=== PATIENT | male | born 1960 | race Caucasian/White ===

== ENCOUNTER 2016-11-03 20:01 | Inpatient (IN) | payer BC, OTHER ==
[~2016-11-03] VITALS: Ht 188 cm; Wt 95.3 kg
[2016-11-03] MEDS ORDERED: SODIUM CHLORIDE 0.9% 1000ML 500 ML IV STA (20:40)
[2016-11-03] MEDS ORDERED: SODIUM CHLORIDE 0.9% 1000ML 1,000 ML IV STA (20:40)
[2016-11-03] MEDS ORDERED: ONDANSETRON INJ 2 MG/ML 2 ML VIAL IV STA (20:40)
[2016-11-03] MEDS ORDERED: PEDICHW50 PO (20:42)
[2016-11-03] MEDS ORDERED: OPTIRAY 320 IV PRN (20:45)
--- NOTE | 2016-11-03 20:45 | EMERGENCY ROOM VISIT NOTE ---
History Report prepared by Alondra: Almas Golden Under the Supervision of: Dr. Star Martin M.D. First contact with patient: 20:32 Chief Complaint: ABDOMINAL PAIN Stated Complaint: SEVERE ABD PAIN-LUMP ON R SIDE History of Present Illness The patient is a 56 year old male who presents to the Emergency Room with complaints of upper abdominal pain that began a couple hours ago. He rates his pain a 9/10 in severity. Today, he was golfing without complaints. Earlier this evening, the patient then had a significant bowel movement. A few minutes later , he felt like he was going to have another one. He could not have another bowel movement. However, he began to experience a knot in his right abdomen with pain over the upper quadrants. He then became nauseated. He did not vomit. He denies any fevers. He has a past medical history of a gastric bypass surgery 1 year ago. Source of History: patient Onset: this evening Position: abdomen Symptom Intensity: 9/10 Quality: sharp Timing: constant Associated Symptoms: + nausea, No fevers Review of Systems See HPI for pertinent positives & negatives. A total of 10 systems reviewed and were otherwise negative. Past Medical & Surgical Medical Problems: (1) GERD (gastroesophageal reflux disease) (2) HTN (hypertension) Surgical Problems: (1) Hx of gastric bypass Family History Patient reports no known family medical history. Social History Smoking Status: Never Smoker Smokeless Tobacco Use: No Alcohol Use: none Drug Use: none Marital Status: Housing Status: lives with significant other Occupation Status: employed Current/Historical Medications Scheduled Pediatric Multiple Vitamin W/ (Flintstones Chewable), 1 TAB PO BID Allergies Coded Allergies: Amoxicillin (Verified Allergy, Unknown, RASH, 11/03/16) Physical Exam Vital Signs Date Time Temp Pulse Resp B/P Pulse Ox O2 Delivery O2 Flow Rate FiO2 11/03/16 22:47 62 12 141/81 Room Air 11/03/16 20:06 36.3 59 20 133/76 100 Room Air Physical Exam GENERAL: Patient is in no acute distress. HEENT: No acute trauma, normocephalic atraumatic, mucous membranes moist, no nasal congestion, no scleral icterus. NECK: No stridor, no adenopathy, no meningismus, trachea is midline. LUNGS: Clear to auscultation bilaterally, no wheeze, no rhonchi, breath sounds equal. HEART: Without murmurs gallops or rubs, regular rate and rhythm. ABDOMEN: There is a firm mass in the RUQ, possibly consistent with an enlarged liver. This area is tender. There is fullness to the groin, especially on the left, consistent with what he describes as a varicocele/hydrocele. EXTREMITIES: No cyanosis, mild bilateral pedal edema with chronic skin changes, full range of motion of all the joints without pain or difficulty, no signs for acute trauma. NEUROLOGIC: Oriented x 3, no acute motor or sensory deficits, no focal weakness. SKIN: No rash, no jaundice, no diaphoresis. Medical Decision & Procedures ER Provider Diagnostic Interpretation: Radiology results are stated below per my review and radiologist interpretation: CHEST ONE VIEW PORTABLE CLINICAL HISTORY: Abdominal pain. COMPARISON STUDY: No previous studies for comparison. FINDINGS: Lung lungs are normal. Lungs are clear. There is no pneumothorax or pleural effusion. Cardiac size is normal. Mediastinal contours are normal. There is no evidence of pulmonary edema. IMPRESSION: No acute cardiopulmonary findings. Electronically signed by: Blade Osborne M.D. 11/03/2016 9:32 PM Dictated Date/Time: 11/03/2016 9:[address] OF THE ABDOMEN AND PELVIS WITH CONTRAST CLINICAL HISTORY: Severe right-sided abdominal pain. Palpable right upper quadrant mass. COMPARISON STUDY: None. TECHNIQUE: Following IV administration of 116 mL of Optiray-320, axial images of the abdomen and pelvis were obtained from the lung bases to the proximal femurs. Images were reviewed in the axial, sagittal, and coronal planes. IV contrast was administered without complication. CT DOSE: 768.40 mGy.cm FINDINGS: There are findings consistent with gastric bypass. There is no evidence for a bowel obstruction. A small amount of right upper quadrant ascites is noted. Evaluation is difficult given a paucity of intra-abdominal fat and lack of oral contrast. The liver, spleen, adrenal veins and pancreas are unremarkable as is the right kidney. There are multiple small nonobstructing left renal calculi. There is malrotation of the left kidney. The appendix is normal. Of note, there are multiple gallstones within the gallbladder including a 7 mm calculus either within the gallbladder neck or the cystic duct. The gallbladder is moderately distended. A marker was placed on the skin at site of palpable abnormality. There is a large water attenuation abnormality within the left hemiscrotum. No suspicious osseous lesions are present. A 2.2 cm right adrenal nodule is present. IMPRESSION: 1. Cholelithiasis, including a calculus within the gallbladder neck/cystic duct. Moderate gallbladder distention. Gallbladder fundus distorts the anterior abdominal wall and reflects the palpable abnormality. These findings suggest acute cholecystitis. 2. Small amount of ascites. 3. Status post gastric bypass. No bowel obstruction. Technically difficult study to interpret due to a paucity of fat. 4. Left-sided nephrolithiasis. 5. Large water attenuation abnormality with the left hemiscrotum which suggests a hydrocele or spermatocele. 6. 2.2 cm right adrenal nodule which is indeterminate but statistically benign. Electronically signed by: Blade Osborne M.D. 11/03/2016 10:25 PM Dictated Date/Time: 11/03/2016 10:13 PM Laboratory Results 11/03/16 21:00 Red Blood Count 4.14, Mean Corpuscular Volume 87.9, Mean Corpuscular Hemoglobin 28.7, Mean Corpuscular Hemoglobin Concent 32.7, Mean Platelet Volume 9.7, Neutrophils (%) (Auto) 82.0, Lymphocytes (%) (Auto) 11.5, Monocytes (%) (Auto) 5.8, Eosinophils (%) (Auto) 0.3, Basophils (%) (Auto) 0.2, Neutrophils # (Auto) 9.15, Lymphocytes # (Auto) 1.28, Monocytes # (Auto) 0.65, Eosinophils # (Auto) 0.03, Basophils # (Auto) 0.02 11/03/16 21:00 Test 11/03/16 21:00 White Blood Count 11.15 K/uL (4.8-10.8) Red Blood Count 4.14 M/uL (4.7-6.1) Hemoglobin 11.9 g/dL (14.0-18.0) Hematocrit 36.4 % (42-52) Mean Corpuscular Volume 87.9 fL (80-100) Mean Corpuscular Hemoglobin 28.7 pg (25-34) Mean Corpuscular Hemoglobin Concent 32.7 g/dl (32-36) Platelet Count 266 K/uL (130-400) Mean Platelet Volume 9.7 fL (7.4-10.4) Neutrophils (%) (Auto) 82.0 % Lymphocytes (%) (Auto) 11.5 % Monocytes (%) (Auto) 5.8 % Eosinophils (%) (Auto) 0.3 % Basophils (%) (Auto) 0.2 % Neutrophils # (Auto) 9.15 K/uL (1.4-6.5) Lymphocytes # (Auto) 1.28 K/uL (1.2-3.4) Monocytes # (Auto) 0.65 K/uL (0.11-0.59) Eosinophils # (Auto) 0.03 K/uL (0-0.5) Basophils # (Auto) 0.02 K/uL (0-0.2) RDW Standard Deviation 45.1 fL (36.4-46.3) RDW Coefficient of Variation 14.2 % (11.5-14.5) Immature Granulocyte % (Auto) 0.2 % Immature Granulocyte # (Auto) 0.02 K/uL (0.00-0.02) Prothrombin Time 11.8 SECONDS (9.0-12.0) Prothromb Time International Ratio 1.1 (0.9-1.1) Activated Partial Thromboplast Time 32.9 SECONDS (21.0-31.0) Partial Thromboplastin Ratio 1.3 Anion Gap 12.0 mmol/L (3-11) Est Creatinine Clear Calc Drug Dose 157.3 ml/min Estimated GFR () 129.4 Estimated GFR (Non- 111.6 BUN/Creatinine Ratio 23.6 (10-20) Calcium Level 9.0 mg/dl (8.5-10.1) Total Bilirubin 1.0 mg/dl (0.2-1) Aspartate Amino Transf (AST/SGOT) 27 U/L (15-37) Alanine Aminotransferase (ALT/SGPT) 34 U/L (12-78) Alkaline Phosphatase 97 U/L (45-117) Total Protein 7.3 gm/dl (6.4-8.2) Albumin 3.8 gm/dl (3.4-5.0) Globulin 3.5 gm/dl (2.5-4.0) Albumin/Globulin Ratio 1.1 (0.9-2) Lipase 87 U/L (73-393) Laboratory results reviewed by me. Medications Administered Medications (Trade) Dose Ordered Sig/Fela Route Start Time Stop Time Status Last Admin Dose Admin Sodium Chloride (Nss 1000ml) 500 ml @ 999 mls/hr Q31M STAT IV 11/03/16 20:40 11/03/16 21:10 DC 11/03/16 20:40 999 MLS/HR Ondansetron HCl 4 mg 4 mg NOW STAT IV 11/03/16 20:40 11/03/16 20:42 DC 11/03/16 21:08 4 MG Sodium Chloride (Nss 1000ml) 1,000 ml @ 200 mls/hr Q5H STAT IV 11/03/16 20:40 11/04/16 01:39 11/03/16 20:40 200 MLS/HR Morphine Sulfate (MoRPHine SULFATE INJ) 6 mg Q30M PRN IV 11/03/16 20:45 11/17/16 20:44 11/03/16 22:50 6 MG Ciprofloxacin/ Dextrose (Cipro / D5w) 400 mg NOW STAT IV 11/03/16 22:31 11/03/16 22:32 DC 11/03/16 22:43 400 MG Metronidazole (Flagyl / Nss) 500 mg NOW STAT IV 11/03/16 22:31 11/03/16 22:32 DC 11/03/16 22:43 500 MG ED Course 2031: The patient was evaluated in room A10. A complete history and physical exam was performed. 2039: Ordered Sodium Chloride 1000 ml @ 200 mls/hr IV, Zofran Inj 4 mg IV, Sodium Chloride 500 ml @ 999 mls/hr IV 2044: Ordered Morphine Sulfate 6 mg IV 2230: Ordered Metronidazole 500 mg IV, Ciprofloxacin/Dextrose 400 mg IV Upon reexamination the patient is him. I discussed results and treatment plan with the patient. He verbalizes agreement and understanding. The patient will be evaluated Dr. Pacheco - General Surgery, for further management. Medical Decision Differential diagnosis includes but is not limited to bowel obstruction, liver mass, hernia, diverticulitis, appendicitis, acute cholecystitis, viral illness, dehydration, electrolyte imbalance, anemia, UTI, and pneumonia. There is a mild leukocytosis which would be consistent with infection. No anemia. No significant electrolyte abnormality, kidney failure or hepatitis. There was no pancreatitis. Chest film did not show free air or pneumonia. Urine dip was positive for possible infection, urinalysis is pending. Of note, the patient has no urinary symptoms. There was no coagulopathy. Abdominal and pelvis CT does not show any obstruction. Acute cholecystitis was suggested. The patient received IV saline, IV Zofran and IV morphine. He received IV Cipro and IV Flagyl once the diagnosis of cholecystitis was made. I spoke to the patient and to case management. Admission/observation is warranted. The on-call surgeon was consulted. Consults Time Called: 2229 Consulting Physician: Dr. Pacheco - General Surgery Returned Call: [phone] They will be evaluating the patient for further management. Impression Primary Impression: Acute cholecystitis Scribe Attestation The scribe's documentation has been prepared under my direction and personally reviewed by me in its entirety. I confirm that the note above accurately reflects all work, treatment, procedures, and medical decision making performed by me. Departure Information Dispostion Being Evaluated By Surgeon Referrals Taras Maza M.D. (MEDICAL) (PCP) Patient Instructions My [facility]
[2016-11-03] MEDS: MoRPHine SULFATE 10 MG/ML CARP/VIAL IV PRN ×2 (21:07→22:50)
[2016-11-03 21:22] LABS: BASO % 0.2 %; BASO ABS # 0.02 K/uL (0-0.2); COMPLETE YES; EOS % 0.3 %; HEMATOCRIT 36.4 % (42-52); IG% 0.2 %; LYMPH % 11.5 %; LYMPH ABS # 1.28 K/uL (1.2-3.4); MEAN CELL VOLUME 87.9 fL (80-100); MEAN CORPUSCULAR HEMOGLOBIN 28.7 pg (25-34); MEAN CORPUSCULAR HGB CONC 32.7 g/dl (32-36); MEAN PLATELET VOLUME 9.7 fL (7.4-10.4); MONO % 5.8 %; PLATELET COUNT 266 K/uL (130-400); RED BLOOD COUNT 4.14 M/uL (4.7-6.1); WHITE BLOOD COUNT 11.15 K/uL (4.8-10.8)
--- NOTE | 2016-11-03 21:33 | DIAGNOSTIC IMAGING REPORT ---
CHEST ONE VIEW PORTABLE CLINICAL HISTORY: Abdominal pain. COMPARISON STUDY: No previous studies for comparison. FINDINGS: Lung lungs are normal. Lungs are clear. There is no pneumothorax or pleural effusion. Cardiac size is normal. Mediastinal contours are normal. There is no evidence of pulmonary edema. IMPRESSION: No acute cardiopulmonary findings. Electronically signed by: Blade Osborne M.D. 11/03/2016 9:32 PM Dictated Date/Time: 11/03/2016 9:31 PM
[2016-11-03 21:38] LABS: BUN/CREATININE RATIO 23.6 (10-20); CREATININE 0.61 mg/dl (0.60-1.40); INR 1.1 (0.9-1.1); PARTIAL THROMBOPLASTIN RATIO 1.3; POTASSIUM 3.6 mmol/L (3.5-5.1); PROTHROMBIN TIME (PATIENT) 11.8 SECONDS (9.0-12.0)
[2016-11-03 21:41] LABS: ALB/GLOB RATIO 1.1 (0.9-2)
--- NOTE | 2016-11-03 22:27 | DIAGNOSTIC IMAGING REPORT ---
CT OF THE ABDOMEN AND PELVIS WITH CONTRAST CLINICAL HISTORY: Severe right-sided abdominal pain. Palpable right upper quadrant mass. COMPARISON STUDY: None. TECHNIQUE: Following IV administration of 116 mL of Optiray-320, axial images of the abdomen and pelvis were obtained from the lung bases to the proximal femurs. Images were reviewed in the axial, sagittal, and coronal planes. IV contrast was administered without complication. CT DOSE: 768.40 mGy.cm FINDINGS: There are findings consistent with gastric bypass. There is no evidence for a bowel obstruction. A small amount of right upper quadrant ascites is noted. Evaluation is difficult given a paucity of intra-abdominal fat and lack of oral contrast. The liver, spleen, adrenal veins and pancreas are unremarkable as is the right kidney. There are multiple small nonobstructing left renal calculi. There is malrotation of the left kidney. The appendix is normal. Of note, there are multiple gallstones within the gallbladder including a 7 mm calculus either within the gallbladder neck or the cystic duct. The gallbladder is moderately distended. A marker was placed on the skin at site of palpable abnormality. There is a large water attenuation abnormality within the left hemiscrotum. No suspicious osseous lesions are present. A 2.2 cm right adrenal nodule is present. IMPRESSION: 1. Cholelithiasis, including a calculus within the gallbladder neck/cystic duct. Moderate gallbladder distention. Gallbladder fundus distorts the anterior abdominal wall and reflects the palpable abnormality. These findings suggest acute cholecystitis. 2. Small amount of ascites. 3. Status post gastric bypass. No bowel obstruction. Technically difficult study to interpret due to a paucity of fat. 4. Left-sided nephrolithiasis. 5. Large water attenuation abnormality with the left hemiscrotum which suggests a hydrocele or spermatocele. 6. 2.2 cm right adrenal nodule which is indeterminate but statistically benign. Electronically signed by: Blade Osborne M.D. 11/03/2016 10:25 PM Dictated Date/Time: 11/03/2016 10:13 PM
[2016-11-03] MEDS ORDERED: CIPROFLOXACIN 400MG / 200ML D5W IV STA (22:31)
[2016-11-03] MEDS ORDERED: METRONIDAZOLE 500MG / 100ML NSS IV STA (22:31)
[2016-11-03] MEDS ORDERED: HYDROmorphone INJ 1 MG/ML SYR IV PRN (23:00)
[2016-11-03] MEDS ORDERED: ONDANSETRON INJ 2 MG/ML 2 ML VIAL IV PRN (23:00)
[2016-11-03 23:55] VITALS: BP 144/78; PULSE 66; TEMP 36.9; O2SAT 100; Ht 188 cm; Wt 95.3 kg
[2016-11-03 23:58] LABS: URINE APPEARANCE CLEAR (CLEAR); URINE BILIRUBIN NEG (NEG); URINE COLOR YELLOW; URINE EPITHELIAL CELL AUTO 0-5 /lpf (0-5); URINE NITRITE POS (NEG); URINE SPECIFIC GRAVITY > 1.045 (1.000-1.030); UROBILINOGEN NEG (NEG); ZZUR CULT IF INDIC CLEAN CATCH YES
[2016-11-04] VITALS (8 sets, daily range): BP systolic 102–116; BP diastolic 63–87; PULSE 59–65; TEMP 36.7–37.6; O2SAT 95–97
[2016-11-04 00:02] LABS: MANUAL MICROSCOPIC REQUIRED? NO; REVIEW REQ? NO
--- NOTE | 2016-11-04 00:47 | HISTORY & PHYSICAL EXAMINATION ---
DATE OF ADMISSION: 11/03/2016 Seen in the Emergency Room at the request of Dr. Martin at 10:45 in the evening. SUMMARY: This is a 56-year-old gentleman, who, after he went to see the granddaughter's baseball game, he and his stopped by and had a hamburger, developed excruciating pain in the right upper quadrant. The patient became nauseated, but did not vomit. He had normal bowel movements. PAST MEDICAL HISTORY: Positive for having had a gastric bypass in [place] approximately a year ago, laparoscopically, and since that time, he has lost 200 pounds. Then, his past medical history is positive for GERD, hypertension and history of a gastric bypass. FAMILY HISTORY: Noncontributory. SOCIAL HISTORY: Nonsmoker, nondrinker. MEDICATIONS: He only takes some Flintstones chewable vitamin. ALLERGIES: HE HAS ALLERGY TO AMOXICILLIN. REVIEW OF SYSTEMS: Review of systems 1-10 is pretty much unremarkable, other than the GERD. On questioning further, he never really had any symptoms of gallbladder dysfunction and apparently, from the best he can tell, was not checked before his gastric bypass. The only history that he had is some orthopedic surgery peripherally. PHYSICAL EXAMINATION: GENERAL: As I see him now, he is resting comfortably. He is fully dry. VITAL SIGNS: His last vitals show a temperature of 36.3, pulse 59, respirations 20, blood pressure 133/76, O2 sat 100% on room air. HEAD: Normocephalic. EYES: PERRLA. The sclerae is nonicteric. NECK: There is no cervical lymphadenopathy. Oropharyngeal area is negative. Carotid without any bruits. HEART: Normal sinus. LUNGS: Clear. ABDOMEN: Soft, an easily palpated mass in the right upper quadrant at the 10th and 11th rib edge, consistent with acute cholecystitis and a CAT scan confirming this as the area. The rest of the abdomen is completely benign. LABORATORY: Laboratory mendoza, his white count is 11.15. He does have a left shift. Hemoglobin 11.9, his platelets are adequate. Chemistries, liver function tests were all normal. BUN is 14, creatinine 0.61. Physical findings otherwise is peripherally, the patient has some venous stasis ulcerations in his feet but he has got +2 pulses in his feet, dermatitis of chronic brawny discoloration, longstanding venous insufficiency, but there are no open sores. PLAN: At this point, we will plan to admit him, antibiotic and plan for a laparoscopic cholecystectomy, possible open, tomorrow. Risk and complications were explained to the patient, including bleeding, infection and he would like to proceed accordingly. We will just prophylactically put some SCDs planted high, I do not want to give him any heparin at this time. If he is prolonged, then we may use some postoperative heparinization.
[2016-11-04] MEDS: LACTATED RINGER'S 1000ML 1,000 ML IV SCH ×3 (01:09→14:15)
--- NOTE | 2016-11-04 03:46 | History and Physical ---
History & Physical Date & Time of Service: November 04, 2016 at 03:22 Chief Complaint: Acute Cholecystitis Primary Care Physician: Michael Maza M.D. ([place]) History of Present Illness Source: patient 56 y/o M - history of morbid obesity prior to gastric bypass surgery. The pt was in his normal state of health when he had acute onset of severe RUQ pain following an afternoon meal. He presented to the ER for evaluation where imaging confirmed acute cholecystitis. The pt has a massively distended gallbladder. He was evaluated and admitted by the surgical service and we are asked to see him for pre-op evaluation. He will likely proceed for an open cholecystectomy AM. He is not septic at the time of admission. The pt does not have a history of cardiovascular disease, CARA or DM. He denies exertional dyspnea. He has chronic LE venous insufficiency owing to his previous obese status. Past Medical/Surgical History Medical Problems: (1) GERD (gastroesophageal reflux disease) Status: Chronic (2) HTN (hypertension) Status: Chronic Surgical Problems: (1) Hx of gastric bypass Status: Resolved Family History Patient reports no known family medical history. Social History Smoking Status: Never Smoker Smokeless Tobacco Use: No Drug Use: none Marital Status: Occupational Status: employed Allergies Coded Allergies: Amoxicillin (Verified Allergy, Unknown, RASH, 11/03/16) Home Medications Scheduled Pediatric Multiple Vitamin W/ (Flintstones Chewable), 1 TAB PO BID Review of Systems Constitutional: No chills, No fever, No sweats Eyes: No worsening of vision ENT: No hearing loss, No nasal symptoms, No unusual epistaxis Respiratory: No cough, No sputum, No wheezing Cardiovascular: No PND, No chest pain, No orthopnea Abdomen: + nausea, + pain, + vomiting Musculoskeletal: No joint pain, No muscle pain Genitourinary - Male: No dysuria, No hematuria, No urinary frequency, No urinary urgency Neurologic: No memory loss, No paralysis, No weakness Psychiatric: No depression symptoms Endocrine: No fatigue Hematologic / Lymphatic: No abnormal bleeding/bruising Integumentary: No rash Allergic / Immunologic: No environmental allergies Physical Exam Vital Signs Date Time Temp Pulse Resp B/P Pulse Ox O2 Delivery O2 Flow Rate FiO2 11/03/16 23:55 36.9 66 16 144/78 100 Room Air 11/03/16 23:41 65 12 123/75 Room Air 11/03/16 22:47 62 12 141/81 Room Air 11/03/16 20:06 36.3 59 20 133/76 100 Room Air General Appearance: WD/WN, no apparent distress Head: normocephalic, atraumatic Eyes: normal inspection, PERRL, EOMI ENT: normal ENT inspection, hearing grossly normal, TMs normal, pharynx normal Neck: supple, no adenopathy, thyroid normal, no JVD Respiratory/Chest: chest non-tender, lungs clear, normal breath sounds, no respiratory distress, no accessory muscle use Cardiovascular: regular rate, rhythm, no edema, no gallop, no JVD, no murmur, normal peripheral pulses Abdomen/GI: + pertinent finding (Vsibly distended gallbladder - tender to palpation) Back: normal inspection, no CVA tenderness Extremities/Musculoskelatal: + pedal edema, + pertinent finding (Good pulses - edama and chronic stasis changes are present) Neurologic/Psych: rehab aid II-XII nml as tested, no motor/sensory deficits, alert, normal mood/affect, normal reflexes, oriented x 3 Skin: normal color, warm/dry, no rash Diagnostics Laboratory Results Results Past 24 Hours Test 11/03/16 21:00 11/03/16 22:45 Range/Units White Blood Count 11.15 4.8-10.8 K/uL Red Blood Count 4.14 4.7-6.1 M/uL Hemoglobin 11.9 14.0-18.0 g/dL Hematocrit 36.4 42-52 % Mean Corpuscular Volume 87.9 80-100 fL Mean Corpuscular Hemoglobin 28.7 25-34 pg Mean Corpuscular Hemoglobin Concent 32.7 32-36 g/dl Platelet Count 266 130-400 K/uL Mean Platelet Volume 9.7 7.4-10.4 fL Neutrophils (%) (Auto) 82.0 % Lymphocytes (%) (Auto) 11.5 % Monocytes (%) (Auto) 5.8 % Eosinophils (%) (Auto) 0.3 % Basophils (%) (Auto) 0.2 % Neutrophils # (Auto) 9.15 1.4-6.5 K/uL Lymphocytes # (Auto) 1.28 1.2-3.4 K/uL Monocytes # (Auto) 0.65 0.11-0.59 K/uL Eosinophils # (Auto) 0.03 0-0.5 K/uL Basophils # (Auto) 0.02 0-0.2 K/uL RDW Standard Deviation 45.1 36.4-46.3 fL RDW Coefficient of Variation 14.2 11.5-14.5 % Immature Granulocyte % (Auto) 0.2 % Immature Granulocyte # (Auto) 0.02 0.00-0.02 K/uL Prothrombin Time 11.8 9.0-12.0 SECONDS Prothromb Time International Ratio 1.1 0.9-1.1 Activated Partial Thromboplast Time 32.9 21.0-31.0 SECONDS Partial Thromboplastin Ratio 1.3 Sodium Level 142 136-145 mmol/L Potassium Level 3.6 3.5-5.1 mmol/L Chloride Level 104 98-107 mmol/L Carbon Dioxide Level 26 21-32 mmol/L Anion Gap 12.0 3-11 mmol/L Blood Urea Nitrogen 14 7-18 mg/dl Creatinine 0.61 0.60-1.40 mg/dl Est Creatinine Clear Calc Drug Dose 157.3 ml/min Estimated GFR () 129.4 Estimated GFR (Non- 111.6 BUN/Creatinine Ratio 23.6 10-20 Random Glucose 84 70-99 mg/dl Calcium Level 9.0 8.5-10.1 mg/dl Total Bilirubin 1.0 0.2-1 mg/dl Aspartate Amino Transf (AST/SGOT) 27 15-37 U/L Alanine Aminotransferase (ALT/SGPT) 34 12-78 U/L Alkaline Phosphatase 97 45-117 U/L Total Protein 7.3 6.4-8.2 gm/dl Albumin 3.8 3.4-5.0 gm/dl Globulin 3.5 2.5-4.0 gm/dl Albumin/Globulin Ratio 1.1 0.9-2 Lipase 87 73-393 U/L Urine Color YELLOW Urine Appearance CLEAR CLEAR Urine pH 6.0 4.5-7.5 Urine Specific Welches > 1.045 1.000-1.030 Urine Protein NEG NEG Urine Glucose (UA) NEG NEG Urine Ketones 4+ NEG Urine Occult Blood NEG NEG Urine Nitrite POS NEG Urine Bilirubin NEG NEG Urine Urobilinogen NEG NEG Urine Leukocyte Esterase MODERATE NEG Urine WBC (Auto) >30 0-5 /hpf Urine RBC (Auto) 0-4 0-4 /hpf Urine Hyaline Casts (Auto) 10-30 0-5 /lpf Urine Epithelial Cells (Auto) 0-5 0-5 /lpf Urine Bacteria (Auto) 4+ NEG Microbiology Results 11/03/16 Urine Culture, Received Pending Diagnostic Radiology 1. Cholelithiasis, including a calculus within the gallbladder neck/cystic duct. Moderate gallbladder distention. Gallbladder fundus distorts the anterior abdominal wall and reflects the palpable abnormality. These findings suggest acute cholecystitis. 2. Small amount of ascites. 3. Status post gastric bypass. No bowel obstruction. Technically difficult study to interpret due to a paucity of fat. 4. Left-sided nephrolithiasis. 5. Large water attenuation abnormality with the left hemiscrotum which suggests a hydrocele or spermatocele. 6. 2.2 cm right adrenal nodule which is indeterminate but statistically benign. Impression Assessment and Plan 56 y/o M - history of morbid obesity prior to gastric bypass surgery. The pt was in his normal state of health when he had acute onset of severe RUQ pain following an afternoon meal. He presented to the ER for evaluation where imaging confirmed acute cholecystitis. The pt has a massively distended gallbladder. He was evaluated and admitted by the surgical service and we are asked to see him for pre-op evaluation. He will likely proceed for an open cholecystectomy AM. He is not septic at the time of admission. The pt does not have a history of cardiovascular disease, CARA or DM. He denies exertional dyspnea. He has chronic LE venous insufficiency owing to his previous obese status. Pt does not have significant cardiovascular risk factors - we are pending an EKG however his RCRI is technically 0.4%. He denies a history of CARA. He does not have an excessive bleeding history or history of surgical complications. We would continue antibiotic coverage for at least 5 days as it is noted that his UA is +. He has not complained of dysuria. Ketones in his urine can be attributed to a fasting state and there is no evidence of underlying DM. We will add a urine culture if not obtained. Total time for this consult including review of labs, meds, imaging records and surgery admission - discussion with pt - 30 min Level of Care Med/Surg Advanced Directives Existing Living Will: No Existing Power of Grout Pump Operator: No Resuscitation Status FULL RESUSCITATION VTE Prophylaxis VTE Risk Assessment Done? Y/N: Yes Risk Level: Moderate Given or contraindicated: SCD's
[2016-11-04] MEDS ORDERED: HYDROmorphone INJ 2 MG/ML SYR/VIAL IV PRN (08:30)
[2016-11-04] MEDS ORDERED: EpHEDrine SULFATE INJ 50 MG/ML AMP IV PRN (08:30)
[2016-11-04] MEDS ORDERED: ATROPINE SULFATE 0.1 MG/ML 5ML SYR IV PRN (08:30)
[2016-11-04] MEDS ORDERED: PHENYLEPHRINE 100MCG/ML 5ML SYR IV PRN (08:30)
[2016-11-04] MEDS ORDERED: ONDANSETRON INJ 2 MG/ML 2 ML VIAL IV PRN (08:30)
--- NOTE | 2016-11-04 08:30 | History & Physical Bridge Note ---
H&P Re-Evaluation Bridge Note: I have examined the patient, reviewed the History & Physical and in the interval since the performance of the History & Physical I have noted the following changes of clinical significance: No changes noted still with palpable mass(gallbladder0 unchanged abd neg proceed with lap chantel ,possible open
[2016-11-04] MEDS ORDERED: LIDOCAINE/EPINEPHRINE 1% 20 ML VIAL ONE (08:31)
[2016-11-04] MEDS ORDERED: CONRAY 60% 50 ML VIAL ONE (08:32)
[2016-11-04] MEDS ORDERED: FENTANYL CITRATE INJ 50 MCG/1 ML 2 ML VIAL ONE ×2 (08:46→09:23)
[2016-11-04] MEDS ORDERED: MIDAZOLAM HCL 1 MG/ML 2ML VIAL ONE (08:46)
[2016-11-04] MEDS ORDERED: LIDOCAINE HCL 2% 2 ML VIAL (20MG/ML) ONE (09:07)
[2016-11-04] MEDS ORDERED: ROCURONIUM BROMIDE 10 MG/ML 5 ML VIAL ONE (09:07)
[2016-11-04] MEDS ORDERED: DEXAMETHASONE SOD INJ 4 MG/ML VIAL ONE (09:07)
[2016-11-04] MEDS ORDERED: ONDANSETRON INJ 2 MG/ML 2 ML VIAL ONE (09:07)
[2016-11-04] MEDS ORDERED: PROPOFOL IV EMULSION 10 MG/ML 20 ML VIAL IV ONE (09:07)
--- NOTE | 2016-11-04 09:47 | DIAGNOSTIC IMAGING REPORT ---
CHOLANGIOGRAM O.R. CLINICAL HISTORY: CHOLANGIOGRAM COMPARISON STUDY: CT scan dated 11/03/2016 FLUOROSCOPY TIME: 4 seconds. 3 fluoroscopic spot images were acquired.. FINDINGS: The cystic duct was cannulated and contrast was instilled into the common bile duct. There is free flow into the duodenum. There are no filling defects to indicate calculi. There is minor irregularity of the distal common bile duct, possibly secondary to spasm. IMPRESSION: No filling defects identified. Free flow into the duodenum. Minimal irregularity of the distal common bile duct. Electronically signed by: Dash Shah M.D. 11/04/2016 9:46 AM Dictated Date/Time: 11/04/2016 9:44 AM
[2016-11-04] MEDS ORDERED: CIPROFLOXACIN / D5W 400 MG in PREMIXED IN D5W 200 ML IV SCH (10:00)
[2016-11-04] MEDS ORDERED: GLYCOPYRROLATE INJ 0.2 MG/ML VIAL ONE (10:11)
[2016-11-04] MEDS ORDERED: NEOSTIGMINE METHYLSULFATE 5 MG/5 ML SYR ONE (10:11)
--- NOTE | 2016-11-04 10:27 | [facility] Post Operative Brief Note ---
Immediate Operative Summary Operative Date November 04, 2016. Pre-Operative Diagnosis Acute Cholecystitis Post-Operative Diagnosis Acute Cholecystitis gangrenous Procedure(s) Performed Laparoscopic Cholecystectomy with Intraoperative Cholangiogram Surgeon Dr. Pacheco Teacher Of The Visually Impaired Surgeon(s) Camila Singh-PAC Estimated Blood Loss 10 ml Findings bilious fluid right gutter cultured, ccc( gangrenous) Specimens Microbiology #1- Intra-abdominal Fluid #2- Gallbladder Contents A: Gallbladder and Contents Drains # 19 kurtis per stab subhepatic
[2016-11-04] MEDS ORDERED: OXYC-57 PO (10:49)
[2016-11-04] MEDS ORDERED: CIPR1TAB10 PO (10:49)
--- NOTE | 2016-11-04 10:53 | Discharge Instructions ---
Discharge Instructions Date of Service November 04, 2016. Admission Reason for Admission: Acute Cholecystitis Discharge Discharge Diagnosis / Problem: Acute Cholecystitis Discharge Goals Goal(s): Decrease discomfort, Improve function Activity Recommendations Activity Limitations: as noted below Lifting Limitations: no more than 10 pounds Exercise/Sports Limitations: until after follow-up appointment May Resume Sexual Activity: after follow-up appointment Shower/Bathe: tomorrow Driving or Machine Use: resume 3 days after discharge . Instructions / Follow-Up Instructions / Follow-Up Please call the office at [phone] to have your drain removed at the end of this week. Any questions or concerns please call the office. Current Hospital Diet Patient's current hospital diet: Regular Diet Discharge Diet Recommended Diet: Regular Diet Procedures Procedures Performed: Laparoscopic Cholecystectomy with Intraoperative Cholangiogram Pending Studies Studies pending at discharge: yes List of pending studies: Pathology report. Medical Emergencies . Who to Call and When: Medical Emergencies: If at any time you feel your situation is an emergency, please call 911 immediately. . Non-Emergent Contact Non-Emergency issues call your: Primary Care Provider, Surgeon Call Non-Emergent contact if: temperature is above 101.5, your pain is not controlled, wound has increased drainage, wound has increased redness . "Provider Documentation" section prepared by Camila Singh. . VTE Core Measure Inpt VTE Proph given/why not?: SCD's [place] Drug Monitoring Program Search Results: no issues identified
[2016-11-04] MEDS ORDERED: OXYCODONE/ACETAMINOPHEN 5-325 TAB PO PRN (12:00)
--- NOTE | 2016-11-04 12:25 | Progress Note ---
Subjective Date of Service: November 04, 2016. Subjective Pt evaluation today including: conversation w/ patient, conversation w/ family (), physical exam, lab review, conversation w/ oracle consultant, review of inpatient medication list Pain: surgical pain, no further RUQ pain PO Intake: per surgery, just returned from OR Voiding: no voiding problems patient had laparoscopic cholecystectomy with intra-operative cholangiogram today, tolerated well, less pain now Problem List Medical Problems: (1) Acute cholecystitis Status: Acute Review of Systems Constitutional: No chills, No fatigue, No fever, No problem reported, No see HPI, No sweats, No weakness, No weight loss Eyes: No diplopia, No discharge, No eye pain, No problem reported, No redness, No see HPI, No worsening of vision ENT: No dental problems, No hearing loss, No nasal symptoms, No problem reported, No see HPI, No sore throat, No tinnitus, No trouble swallowing, No unusual epistaxis Respiratory: No cough, No dyspnea at rest, No dyspnea on exertion, No hemoptysis, No problem reported, No see HPI, No shortness of breath, No sputum, No wheezing Cardiac: No PND, No chest pain, No claudication, No edema, No orthopnea, No palpitations, No problem reported, No see HPI Abdomen: + pain (mild, incisional), No GI bleeding, No constipation, No diarrhea, No nausea, No problem reported, No see HPI, No vomiting All Other Systems: Reviewed and Negative Medications Current Inpatient Medications Medications (Trade) Dose Ordered Sig/Fela Route Start Time Stop Time Status Last Admin Dose Admin Ioversol 100 ml 100 ml UD PRN IV 11/03/16 20:45 11/07/16 20:44 Lactated Ringer's (Lr 1000ml) 1,000 ml @ 125 mls/hr Q8H IV 11/03/16 23:00 12/03/16 22:59 11/04/16 06:34 125 MLS/HR Hydromorphone HCl (Dilaudid Inj) 1 mg Q2R PRN IV 11/03/16 23:00 11/17/16 22:59 Ondansetron HCl 4 mg 4 mg Q6H PRN IV 11/03/16 23:00 12/03/16 22:59 Ciprofloxacin/ Dextrose/Prmx (Cipro / D5w/ Premixed D5W) 200 ml @ 100 mls/hr Q12H IV 11/04/16 10:00 11/14/16 09:59 11/04/16 11:45 100 MLS/HR Hydromorphone HCl (Dilaudid Inj) 0.5 mg Q5M PRN IV 11/04/16 08:30 11/04/16 13:30 Ondansetron HCl (Zofran Inj) 4 mg ONE PRN IV 11/04/16 08:30 11/04/16 13:30 Ephedrine Sulfate (EpHEDrine SULFATE INJ) 5 mg Q5M PRN IV 11/04/16 08:30 11/04/16 13:30 Atropine Sulfate (Atropine Sulfate 0.1MG/Ml Inj) 0.5 mg Q1M PRN IV 11/04/16 08:30 11/04/16 13:30 Phenylephrine HCl (Armand-Synephrine 500MCG/5ML Syr) 100 mcg Q5M PRN IV 11/04/16 08:30 11/04/16 13:30 Oxycodone/ Acetaminophen (Percocet 5-325mg Tab) @ Q4H PRN PO 11/04/16 12:00 11/18/16 11:59 UNV Objective Vital Signs Date Time Temp Pulse Resp B/P Pulse Ox O2 Delivery O2 Flow Rate FiO2 11/04/16 12:10 37.2 60 19 104/63 95 Room Air 11/04/16 11:41 37.0 60 17 110/65 96 Room Air 11/04/16 11:15 37.4 61 18 108/63 96 Room Air 11/04/16 11:15 Room Air 11/04/16 11:05 70 12 111/60 95 Room Air 11/04/16 10:50 38.1 66 14 113/65 97 Room Air 11/04/16 10:40 66 12 121/63 100 Mask 10 11/04/16 10:30 65 18 122/66 100 Mask 10 11/04/16 10:22 37.9 62 16 116/64 100 Mask 10 11/04/16 08:05 65 18 126/68 98 Room Air 11/04/16 07:23 37.6 65 19 116/87 97 Room Air 11/04/16 07:20 Room Air 11/04/16 00:00 Room Air 11/03/16 23:55 36.9 66 16 144/78 100 Room Air 11/03/16 23:41 65 12 123/75 Room Air 11/03/16 22:47 62 12 141/81 Room Air 11/03/16 20:06 36.3 59 20 133/76 100 Room Air Physical Exam General Appearance: WD/WN, no apparent distress Eyes: normal inspection, EOMI, sclerae normal ENT: normal ENT inspection, hearing grossly normal, pharynx normal Neck: supple, no adenopathy, no JVD, trachea midline Respiratory/Chest: chest non-tender, lungs clear, normal breath sounds, no respiratory distress, no accessory muscle use Cardiovascular: regular rate, rhythm, no edema, no gallop, no JVD, no murmur Abdomen: normal bowel sounds, non tender, soft, no organomegaly Extremities: normal range of motion, non-tender, normal inspection, no pedal edema, no calf tenderness Neurologic/Psychiatric: specifications checker II-XII nml as tested, no motor/sensory deficits, alert, normal mood/affect, oriented x 3 Skin: normal color, warm/dry, no rash Lymphatic: no adenopathy Laboratory Results Last 24 Hours Test 11/03/16 21:00 11/03/16 22:45 11/04/16 07:50 White Blood Count 11.15 K/uL Red Blood Count 4.14 M/uL Hemoglobin 11.9 g/dL Hematocrit 36.4 % Mean Corpuscular Volume 87.9 fL Mean Corpuscular Hemoglobin 28.7 pg Mean Corpuscular Hemoglobin Concent 32.7 g/dl Platelet Count 266 K/uL Mean Platelet Volume 9.7 fL Neutrophils (%) (Auto) 82.0 % Lymphocytes (%) (Auto) 11.5 % Monocytes (%) (Auto) 5.8 % Eosinophils (%) (Auto) 0.3 % Basophils (%) (Auto) 0.2 % Neutrophils # (Auto) 9.15 K/uL Lymphocytes # (Auto) 1.28 K/uL Monocytes # (Auto) 0.65 K/uL Eosinophils # (Auto) 0.03 K/uL Basophils # (Auto) 0.02 K/uL RDW Standard Deviation 45.1 fL RDW Coefficient of Variation 14.2 % Immature Granulocyte % (Auto) 0.2 % Immature Granulocyte # (Auto) 0.02 K/uL Prothrombin Time 11.8 SECONDS Prothromb Time International Ratio 1.1 Activated Partial Thromboplast Time 32.9 SECONDS Partial Thromboplastin Ratio 1.3 Sodium Level 142 mmol/L Potassium Level 3.6 mmol/L Chloride Level 104 mmol/L Carbon Dioxide Level 26 mmol/L Anion Gap 12.0 mmol/L Blood Urea Nitrogen 14 mg/dl Creatinine 0.61 mg/dl Est Creatinine Clear Calc Drug Dose 157.3 ml/min Estimated GFR () 129.4 Estimated GFR (Non- 111.6 BUN/Creatinine Ratio 23.6 Random Glucose 84 mg/dl Calcium Level 9.0 mg/dl Total Bilirubin 1.0 mg/dl Aspartate Amino Transf (AST/SGOT) 27 U/L Alanine Aminotransferase (ALT/SGPT) 34 U/L Alkaline Phosphatase 97 U/L Total Protein 7.3 gm/dl Albumin 3.8 gm/dl Globulin 3.5 gm/dl Albumin/Globulin Ratio 1.1 Lipase 87 U/L Urine Color YELLOW Urine Appearance CLEAR Urine pH 6.0 Urine Specific [place] > 1.045 Urine Protein NEG Urine Glucose (UA) NEG Urine Ketones 4+ Urine Occult Blood NEG Urine Nitrite POS Urine Bilirubin NEG Urine Urobilinogen NEG Urine Leukocyte Esterase MODERATE Urine WBC (Auto) >30 /hpf Urine RBC (Auto) 0-4 /hpf Urine Hyaline Casts (Auto) 10-30 /lpf Urine Epithelial Cells (Auto) 0-5 /lpf Urine Bacteria (Auto) 4+ Assessment and Plan 56 yo male with gangrenous gall bladder - Acute cholecystitis, gangrenous: s/p lap cholecystectomy 11/04 with cholangiogram tolerated procedure well, 10cc of estimated blood loss drain in place Cipro/Flagy diet and d/c instructions per general surgery, chance he could be d/c later today if tolerating diet H/o of HTN, GERD, morbid obesity s/p gastric bypass issues are chronic and stable vitals stable post op would be okay for discharge from medical perspective
--- NOTE | 2016-11-04 12:34 | Anesthesiology Progress Note ---
Anesthesia Post Op Note Date & Time November 04, 2016 at 12:33 Vital Signs Pain Intensity: 5.0 Vital Signs Past 12 Hours Date Time Temp Pulse Resp B/P Pulse Ox O2 Delivery O2 Flow Rate FiO2 11/04/16 12:10 37.2 60 19 104/63 95 Room Air 11/04/16 11:41 37.0 60 17 110/65 96 Room Air 11/04/16 11:15 37.4 61 18 108/63 96 Room Air 11/04/16 11:15 Room Air 11/04/16 11:05 70 12 111/60 95 Room Air 11/04/16 10:50 38.1 66 14 113/65 97 Room Air 11/04/16 10:40 66 12 121/63 100 Mask 10 11/04/16 10:30 65 18 122/66 100 Mask 10 11/04/16 10:22 37.9 62 16 116/64 100 Mask 10 11/04/16 08:05 65 18 126/68 98 Room Air 11/04/16 07:23 37.6 65 19 116/87 97 Room Air 11/04/16 07:20 Room Air Notes Mental Status: alert / awake / arousable, participated in evaluation Pt Amnestic to Procedure: Yes Nausea / Vomiting: adequately controlled Pain: adequately controlled Airway Patency, RR, SpO2: stable & adequate BP & HR: stable & adequate Hydration State: stable & adequate Anesthetic Complications: no major complications apparent
[2016-11-04 13:39] LABS: HEMATOCRIT 32.7 % (42-52); MEAN CELL VOLUME 88.6 fL (80-100); MEAN CORPUSCULAR HGB CONC 32.7 g/dl (32-36); MEAN PLATELET VOLUME 9.7 fL (7.4-10.4); PLATELET COUNT 198 K/uL (130-400); RED BLOOD COUNT 3.69 M/uL (4.7-6.1); WHITE BLOOD COUNT 17.26 K/uL (4.8-10.8)
--- NOTE | 2016-11-04 13:54 | OPERATIVE REPORT ---
DATE OF OPERATION: 11/04/2016 PREOPERATIVE DIAGNOSIS: Acute and chronic cholecystitis, cholelithiasis. POSTOPERATIVE DIAGNOSIS: Same (gangrenous). PROCEDURE: Laparoscopic cholecystectomy, intraoperative cholangiogram. SURGEON: Dr. Pacheco. LOSS PREVENTION AND SAFETY MANAGER: Camila Singh PA-C. OPERATION AND FINDINGS: SUMMARY: The patient was brought into the operating room theater. The abdomen was prepped with Betadine solution and properly draped. We made a small transverse incision above the umbilicus, dissected down to the abdominal wall fascia where we incised the fascia after elevating it with Dwain clamps, 0 Vicryl suture was used as stay suture. We entered the peritoneal cavity under direct visualization, 5 mm trocar without the sharp edge was placed. Retention stay sutures were used to control the pneumoperitoneum, CO2 insufflated. At this point, the patient was placed in reverse Trendelenburg position, rotated to the left. We could see in right upper quadrant a really distended gallbladder as had been marked on the skin edge. In the right gutter had bilious colored cloudy fluid which we would aspirate and send for cultures. Under direct visualization, a 5 mm epigastric, two 5 mm subcostal ports were placed. As stated we suctioned out the gutter first and then the trap and sent it for cultures. Then we drained the gallbladder which was quite tense. We controlled where the needle had gone through gallbladder under direct visualization. Adhesions to the gallbladder which were just omental adhesions were taken down by blunt dissection. A significant amount of inflammatory and edema was appreciated throughout the gallbladder which we worked down towards the neck. Once we were down to the neck, most of our dissection was done bluntly. On the edema we were able to identify a very small cystic duct which we clamped proximally once. A small opening in the cystic duct was made. A #4 urethral catheter transversed the abdominal wall positioned in the cystic duct. Serial x-rays were taken that showed free flow into the duodenum. No obstruction. The cholangiocath was then removed. The cystic duct was doubly clipped and divided. We dissected further out, identified the artery which was doubly clipped and divided. Gallbladder was removed pretty much in the antegrade fashion. We tried to leave as much posterior peritoneum intact which with the edema made it quite easily except in the mid portion we were not able to salvage much of the posterior peritoneum, but up towards the other we were able to. Once we freed it from the liver bed, we placed it in an Endopouch. Actually as we were trying to take in out of the Endopouch the bag and the Endopouch suture became dislodged and we were able to grab it with a grasper green port and take it out through the epigastric port. Once we had this out, then we worked our way out taking out the gallbladder intact. Once we finished it the gallbladder obviously was quite edematous in the area of the patchy necrosis, had stones in it. This was sent for cultures also. Subhepatic and suprahepatic area was then checked for hemostasis and appeared satisfactory. We then placed a Puma drain subhepatically to bring it out medially in the epigastric port taken out lateral subcostal port, attached to skin edges with 2-0 silk. Prior to leaving the room, we checked the liver bed and appeared quite dry with just minimal oozing. We placed a camera in subcostal port to visualize the umbilical opening, no adhesions of the abdominal wall there were appreciated. Wound were closed with tying down the stay sutures in the umbilical area and then Monocryl. The epigastric area which we started with a 5 mm actually enlarged just to get the acute gallbladder out. We closed with fascial stitch of 0 Vicryl [id number] and more Monocryl. Steri-Strips applied. The procedure was tolerated well by the patient. Estimated blood loss approximately 10 mL. The patient was taken to recovery room in good condition. I attest to the content of the Intraoperative Record and any orders documented therein. Any exceptio ns are noted below.
[2016-11-04 14:22] LABS: BUN/CREATININE RATIO 13.2 (10-20); CALCIUM 7.8 mg/dl (8.5-10.1); CREATININE 0.87 mg/dl (0.60-1.40)
[2016-11-04 14:27] LABS: ALB/GLOB RATIO 0.9 (0.9-2)
--- NOTE | 2016-11-04 15:38 | Surgery Progress Note ---
Surgery Progress Note Date of Service November 04, 2016. Subjective Post OP Day: 0 + diet (regular), + feeling well, No nausea Objective Vital Signs: Date Time Temp Pulse Resp B/P Pulse Ox O2 Delivery O2 Flow Rate FiO2 11/04/16 14:21 37.0 59 18 102/63 97 Room Air 11/04/16 13:13 36.7 61 19 104/64 96 Room Air 11/04/16 12:10 37.2 60 19 104/63 95 Room Air 11/04/16 11:41 37.0 60 17 110/65 96 Room Air 11/04/16 11:15 37.4 61 18 108/63 96 Room Air 11/04/16 11:15 Room Air 11/04/16 11:05 70 12 111/60 95 Room Air 11/04/16 10:50 38.1 66 14 113/65 97 Room Air 11/04/16 10:40 66 12 121/63 100 Mask 10 11/04/16 10:30 65 18 122/66 100 Mask 10 11/04/16 10:22 37.9 62 16 116/64 100 Mask 10 11/04/16 08:05 65 18 126/68 98 Room Air 11/04/16 07:23 37.6 65 19 116/87 97 Room Air 11/04/16 07:20 Room Air 11/04/16 00:00 Room Air 11/03/16 23:55 36.9 66 16 144/78 100 Room Air 11/03/16 23:41 65 12 123/75 Room Air 11/03/16 22:47 62 12 141/81 Room Air 11/03/16 20:06 36.3 59 20 133/76 100 Room Air Physical Exam: Puma drainage (180 serosang) Abdomen: non distended, soft Laboratory Results: Results Past 24 Hours Test 11/03/16 21:00 11/03/16 22:45 11/04/16 13:23 Range/Units White Blood Count 11.15 17.26 4.8-10.8 K/uL Red Blood Count 4.14 3.69 4.7-6.1 M/uL Hemoglobin 11.9 10.7 14.0-18.0 g/dL Hematocrit 36.4 32.7 42-52 % Mean Corpuscular Volume 87.9 88.6 80-100 fL Mean Corpuscular Hemoglobin 28.7 29.0 25-34 pg Mean Corpuscular Hemoglobin Concent 32.7 32.7 32-36 g/dl Platelet Count 266 198 130-400 K/uL Mean Platelet Volume 9.7 9.7 7.4-10.4 fL Neutrophils (%) (Auto) 82.0 % Lymphocytes (%) (Auto) 11.5 % Monocytes (%) (Auto) 5.8 % Eosinophils (%) (Auto) 0.3 % Basophils (%) (Auto) 0.2 % Neutrophils # (Auto) 9.15 1.4-6.5 K/uL Lymphocytes # (Auto) 1.28 1.2-3.4 K/uL Monocytes # (Auto) 0.65 0.11-0.59 K/uL Eosinophils # (Auto) 0.03 0-0.5 K/uL Basophils # (Auto) 0.02 0-0.2 K/uL RDW Standard Deviation 45.1 46.1 36.4-46.3 fL RDW Coefficient of Variation 14.2 14.2 11.5-14.5 % Immature Granulocyte % (Auto) 0.2 % Immature Granulocyte # (Auto) 0.02 0.00-0.02 K/uL Prothrombin Time 11.8 9.0-12.0 SECONDS Prothromb Time International Ratio 1.1 0.9-1.1 Activated Partial Thromboplast Time 32.9 21.0-31.0 SECONDS Partial Thromboplastin Ratio 1.3 Sodium Level 142 140 136-145 mmol/L Potassium Level 3.6 4.0 3.5-5.1 mmol/L Chloride Level 104 104 98-107 mmol/L Carbon Dioxide Level 26 29 21-32 mmol/L Anion Gap 12.0 7.0 3-11 mmol/L Blood Urea Nitrogen 14 11 7-18 mg/dl Creatinine 0.61 0.87 0.60-1.40 mg/dl Est Creatinine Clear Calc Drug Dose 157.3 110.3 ml/min Estimated GFR () 129.4 111.8 Estimated GFR (Non- 111.6 96.5 BUN/Creatinine Ratio 23.6 13.2 10-20 Random Glucose 84 135 70-99 mg/dl Calcium Level 9.0 7.8 8.5-10.1 mg/dl Total Bilirubin 1.0 1.4 0.2-1 mg/dl Aspartate Amino Transf (AST/SGOT) 27 69 15-37 U/L Alanine Aminotransferase (ALT/SGPT) 34 95 12-78 U/L Alkaline Phosphatase 97 125 45-117 U/L Total Protein 7.3 5.8 6.4-8.2 gm/dl Albumin 3.8 2.8 3.4-5.0 gm/dl Globulin 3.5 3.0 2.5-4.0 gm/dl Albumin/Globulin Ratio 1.1 0.9 0.9-2 Lipase 87 73-393 U/L Urine Color YELLOW Urine Appearance CLEAR CLEAR Urine pH 6.0 4.5-7.5 Urine Specific [place] > 1.045 1.000-1.030 Urine Protein NEG NEG Urine Glucose (UA) NEG NEG Urine Ketones 4+ NEG Urine Occult Blood NEG NEG Urine Nitrite POS NEG Urine Bilirubin NEG NEG Urine Urobilinogen NEG NEG Urine Leukocyte Esterase MODERATE NEG Urine WBC (Auto) >30 0-5 /hpf Urine RBC (Auto) 0-4 0-4 /hpf Urine Hyaline Casts (Auto) 10-30 0-5 /lpf Urine Epithelial Cells (Auto) 0-5 0-5 /lpf Urine Bacteria (Auto) 4+ NEG Microbiology Results 11/03/16 Urine Culture - Preliminary, Resulted Gram Negative Bacilli 11/04/16 Gram Stain - Final, Resulted 11/04/16 Bacterial Culture, Resulted Pending 11/04/16 Gram Stain - Final, Resulted 11/04/16 Bacterial Culture, Resulted Pending Assessment & Plan s/p pranay valdes for d/c on po antibiotics and drain will be removed in office later this week
--- NOTE | 2016-11-05 16:01 | DISCHARGE SUMMARY ---
PRIMARY DISCHARGE DIAGNOSES: 1. Acute gangrenous cholecystitis. 2. Cholelithiasis. SECONDARY DISCHARGE DIAGNOSES: 1. History of gastric bypass. 2. Gastroesophageal reflux disease. 3. Hypertension. PROCEDURE PERFORMED: Laparoscopic cholecystectomy with intraoperative cholangiogram. HOSPITAL COURSE: The patient is a 56-year-old male who presented to Emergency Department with severe upper abdominal pain and nausea that began that evening. CT showed cholelithiasis with calculus in the gallbladder neck, gallbladder distention. He was admitted to the surgery service overnight, started on IV Cipro and taken to the operating room the next morning for laparoscopic cholecystectomy. He did have gangrenous cholecystitis. Intraoperative cholangiogram showed no filling defects. A [place] drain was placed. He was returned to the surgical floor, continued on IV antibiotics. During the day, he was able to tolerate an advancing diet and oral analgesics. The [place] drainage was serosanguineous. Incisions were dry. He was stable for discharge home with the drain to be removed in the office in a few days. DISCHARGE INSTRUCTIONS: Discharge home. Follow up with Dr. Pacheco's office in 3 days for removal of the [place] drain. DISCHARGE MEDICATIONS: Cipro 500 mg p.o. b.i.d. x1 week, Percocet 1-2 tablets every 4 hours as needed. Continue his home multivitamin.
[2016-12-03] MEDS ORDERED: HYDR-5688 PO (13:50)
[2016-12-18] MEDS ORDERED: HYDR-3983 PO (11:54)
[2016-12-18] MEDS ORDERED: PRT40 PO (11:54)
[2016-12-18] MEDS ORDERED: LCTX PO (11:54)
[2016-12-18] MEDS ORDERED: CRFUDL PO (11:54)
[2016-12-18] MEDS ORDERED: CLC150 PO (11:54)
[2017-01-09] MEDS ORDERED: CLC/300 PO (13:44)
== END 2016-11-04 17:30 | disposition home or self-care (01) | DRG 416 ==
LOC: ENRESERVDT → ENRESERVTM → C.EDB 20:04 → C.3E 23:02
PROVIDERS: ADMIT Surgery; ATTEND Surgery
PROC: 0FT40ZZ Resection of Gallbladder, Open Approach (ICD-10-PCS; principal; 2016-11-04 08:45)
DX: K81.0 Acute cholecystitis (principal); N20.0 Calculus of kidney; K21.9 Gastro-esophageal reflux disease without esophagitis; I10 Essential (primary) hypertension; Z98.84 Bariatric surgery status

== ENCOUNTER → 2016-11-22 | Outpatient (CLI) | payer BC ==
[~2016-11-22] MED LIST: CLC/300 PO; CLC150 PO; CRFUDL PO; HYDR-3983 PO; HYDR-5688 PO; LCTX PO; PEDICHW50 PO; PRT40 PO; ZOLP10TA PO
[2016-11-22 10:24] LABS: URINE APPEARANCE CLEAR (CLEAR); URINE BILIRUBIN NEG (NEG); URINE COLOR YELLOW; URINE NITRITE NEG (NEG); URINE PH 6.5 (4.5-7.5); URINE SPECIFIC GRAVITY 1.027 (1.000-1.030); UROBILINOGEN NEG (NEG)
[2016-11-22 10:25] LABS: MANUAL MICROSCOPIC REQUIRED? NO; REVIEW REQ? NO
--- NOTE | 2016-11-22 10:32 | DIAGNOSTIC IMAGING REPORT ---
ULTRASOUND TESTES AND SCROTUM CLINICAL HISTORY: Hydrocele. COMPARISON STUDY: No priors. TECHNIQUE: Real-time, grayscale, and color Doppler sonography of the testes and scrotum is performed. Images are reviewed in the transverse and longitudinal planes. FINDINGS: The testes are normal in size and homogeneous in echotexture. The right testis measures 4.2 x 3.3 x 3.1 cm and the left testis measures 4.6 x 2.0 x 3.3 cm. No intratesticular mass is seen. There is a 9 mm simple appearing cyst within the lower pole of the left testis. Testicular blood flow is normal and symmetric. Normal Doppler waveforms are identified in both testes. The epididymides are grossly unremarkable but not well assessed. There is a large and minimally complex left-sided hydrocele which contains a thick septation. No varicocele is seen. Only a small hydrocele is seen on the right. IMPRESSION: 1. There is a large, septated, and minimally complex left-sided hydrocele. 2. There is only a small hydrocele seen on the right. 3. No testicular mass is identified. 4. A 9 mm simple appearing cyst is noted within the lower pole of the left testis. Consider precautionary 6-12 month sonographic follow-up for reassessment. Electronically signed by: Star Mercer M.D. 11/22/2016 10:31 AM Dictated Date/Time: 11/22/2016 10:28 AM
== END | disposition home or self-care (01) ==
LOC: C.ULTR 09:09
PROVIDERS: ATTEND Urology
DX: N43.3 Hydrocele, unspecified (principal); N44.2 Benign cyst of testis

== ENCOUNTER 2016-12-03 10:32 | Day surgery (SDC) | payer BC ==
[2016-11-21 09:07] VITALS: BMI 27.0
[~2016-12-03] VITALS: Ht 188 cm; Wt 95.5 kg
[~2016-12-03 10:32] MED LIST changes: +CIPROFLOXACIN / D5W 400 MG IV SCH; -CLC/300 PO; -CLC150 PO; -CRFUDL PO; -HYDR-3983 PO; -HYDR-5688 PO; +LACTATED RINGER'S 1000ML 1,000 ML IV SCH; -LCTX PO; -PRT40 PO; -ZOLP10TA PO
[2016-12-03 10:56] VITALS: BP 127/69; PULSE 46; TEMP 36.3; O2SAT 99; Ht 188 cm; Wt 95.5 kg
[2016-12-03] MEDS ORDERED: ONDANSETRON INJ 2 MG/ML 2 ML VIAL IV PRN (11:45)
[2016-12-03] MEDS ORDERED: FENTANYL CITRATE INJ 50 MCG/1 ML 2 ML VIAL IV PRN (11:45)
[2016-12-03] MEDS ORDERED: EpHEDrine SULFATE INJ 50 MG/ML AMP IV PRN (11:45)
[2016-12-03] MEDS ORDERED: ATROPINE SULFATE 0.1 MG/ML 5ML SYR IV PRN (11:45)
--- NOTE | 2016-12-03 11:53 | History & Physical Bridge Note ---
H&P Re-Evaluation Bridge Note: I have examined the patient, reviewed the History & Physical and in the interval since the performance of the History & Physical I have noted the following changes of clinical significance: No changes noted
[2016-12-03] MEDS ORDERED: LIDOCAINE HCL 2% 2 ML VIAL (20MG/ML) ONE (12:00)
[2016-12-03] MEDS ORDERED: PROPOFOL IV EMULSION 10 MG/ML 20 ML VIAL IV ONE (12:00)
[2016-12-03] MEDS ORDERED: MIDAZOLAM HCL 1 MG/ML 2ML VIAL ONE (12:00)
[2016-12-03] MEDS ORDERED: FENTANYL CITRATE INJ 50 MCG/1 ML 2 ML VIAL ONE (12:00)
[2016-12-03] MEDS ORDERED: BUPIVACAINE 0.5 % 5 MG/1 ML MPF 30ML VIAL ONE (12:13)
[2016-12-03] MEDS ORDERED: BACITRACIN OINT 15 GM TUBE ONE (12:13)
[2016-12-03] MEDS ORDERED: GLYCOPYRROLATE INJ 0.2 MG/ML VIAL ONE (12:40)
[2016-12-03] MEDS ORDERED: DEXAMETHASONE SOD INJ 4 MG/ML VIAL ONE (12:40)
[2016-12-03] MEDS ORDERED: ONDANSETRON INJ 2 MG/ML 2 ML VIAL ONE (12:40)
[2016-12-03] MEDS ORDERED: KETOROLAC TROMETHAMINE 30 MG/ML VIAL ONE (12:56)
[2016-12-03] MEDS ORDERED: SODIUM CHLORIDE 0.9% 1000ML 1,000 ML IV SCH (13:48)
--- NOTE | 2016-12-03 13:48 | [facility] Post Operative Brief Note ---
Immediate Operative Summary Operative Date December 03, 2016. Pre-Operative Diagnosis Left hydrocele Post-Operative Diagnosis Same as preoperative diagnosis Procedure(s) Performed Left hydrocelectomy Surgeon Dr. Reyes Lewis End Worker Surgeon(s) None Estimated Blood Loss 20 mL Findings 2 distinct hydroceles - one surrounding the testis, one of the cord. Thickened tunica (prior percutaneous drainage). Specimens Permanent specimens A: Left hydrocele sac Drains Jessica Anesthesia gen Complication(s) None Disposition Recovery Room / PACU (stable)
[2016-12-03] MEDS ORDERED: HYDR-5688 PO (13:50)
--- NOTE | 2016-12-03 13:53 | Discharge Instructions ---
Discharge Instructions Date of Service December 03, 2016. Admission Reason for Admission: Left Hydrocele Discharge Discharge Diagnosis / Problem: Left hydrocele Discharge Goals Goal(s): Decrease discomfort, Improve function, Increase independence, Improve disease control Activity Recommendations Activity Limitations: per Instructions/Follow-up section Lifting Limitations: gradually increase as tolerated Exercise/Sports Limitations: rest today, gradually increase as tolerated May Resume Sexual Activity: when tolerated Shower/Bathe: tomorrow (shower - no swimming pool or hot tub for 2 weeks) Driving or Machine Use: resume 1 day after discharge . Discharge Diet Recommended Diet: Regular Diet Procedures Procedures Performed: Left hydrocelectomy Pending Studies Studies pending at discharge: no Medical Emergencies . Who to Call and When: Medical Emergencies: If at any time you feel your situation is an emergency, please call 911 immediately. . Non-Emergent Contact Non-Emergency issues call your: Urologist Call Non-Emergent contact if: you have a fever, temperature is above 101.5, your pain is unusual for you, your pain is concerning you . . "Provider Documentation" section prepared by London Quiles. . VTE Core Measure Inpt VTE Proph given/why not?: Treatment not indicated
[2016-12-03] MEDS ORDERED: OXYCODONE/ACETAMINOPHEN 5-325 TAB PO PRN ×2 (14:00)
[2016-12-03 14:35] VITALS: BP 142/81; PULSE 41; TEMP 36.4; O2SAT 100
--- NOTE | 2016-12-03 14:46 | Anesthesiology Progress Note ---
Anesthesia Post Op Note Date & Time December 03, 2016 at 14:46 Vital Signs Pain Intensity: 0 Vital Signs Past 12 Hours Date Time Temp Pulse Resp B/P Pulse Ox O2 Delivery O2 Flow Rate FiO2 12/03/16 14:30 36.6 40 16 172/92 100 Nasal Cannula 3 12/03/16 14:20 40 16 168/91 100 Nasal Cannula 3 12/03/16 14:10 37 16 168/90 100 Nasal Cannula 3 12/03/16 14:00 47 16 161/80 100 Mask 6 12/03/16 13:50 36.7 58 16 152/89 100 Mask 10 12/03/16 10:56 36.3 46 18 127/69 99 Room Air Notes Mental Status: alert / awake / arousable, participated in evaluation Pt Amnestic to Procedure: Yes Nausea / Vomiting: adequately controlled Pain: adequately controlled Airway Patency, RR, SpO2: stable & adequate BP & HR: stable & adequate Hydration State: stable & adequate Anesthetic Complications: no major complications apparent
[2016-12-03 15:05] VITALS: BP 128/84; PULSE 44; O2SAT 100
[2016-12-03 15:35] VITALS: BP 123/79; PULSE 42; TEMP 36.4; O2SAT 100
--- NOTE | 2016-12-03 20:03 | OPERATIVE REPORT ---
DATE OF OPERATION: 12/03/2016 PREOPERATIVE DIAGNOSIS: Left hydrocele. POSTOPERATIVE DIAGNOSIS: Left hydrocele. PROCEDURE PERFORMED: Left hydrocelectomy. ANESTHESIA: General. ESTIMATED BLOOD LOSS: 20 mL. URINE OUTPUT: Not recorded. SPECIMEN: Left hydrocele sac for routine pathology. DRAIN: [place]. DESCRIPTION OF THE PROCEDURE: Stu Alberto was identified in the preoperative holding area. Appropriate informed consents were reviewed and completed and the patient was transported to the operating suite. Upon arrival, he received appropriate preoperative antibiotics in the form of ciprofloxacin. Adequate general anesthesia was achieved, the patient was placed in the supine position where he was sterilely prepped and draped in a standard fashion. NOTE: Stu has relatively a large hydrocele on the left hand side, estimated to be 500-600 mL of fluid preoperatively. He had a prior ultrasound, which shows a thick septation in the midst of this. He has had this percutaneously drained on 2 occasions in the past, most recently about 5-6 months ago. Both times these recurred relatively quickly. He has had no infections or other problems. He presents today for definitive repair in the form of left hydrocelectomy. DESCRIPTION OF PROCEDURE: A midline raphae incision was made of approximately 5 cm in the mid scrotum. I dissected my way through dartos fascia and then skeletonized around the hydrocele sac itself and delivered the hydrocele intact through the incision. Of note, there was readily apparent that he has had reactive process secondary likely to his prior drainages and tunica vaginalis itself was quite thickened and irritated. I was able to skeletonize this adequately; however and I incised through it for a length of approximately 1 cm between 2 hemostats, draining approximately 550 mL of clear straw colored fluid. I then opened this longitudinally after inspecting the inner aspects. There were no abnormalities appreciated on the inner aspect of this hydrocele; however, it became pretty clearly apparent soon after opening it that there was the component of hydrocele that was not communicating with this and surrounded the testis itself where as this larger component was predominantly a cord-based hydrocele. I suspected this matches the previously noted septation seen on the ultrasound. After incising this first hydrocele longitudinally, I excised the redundant sac from the left and right with care to avoid encroachment upon the vessels. I then oversewed the edges using a 2-0 Vicryl stitch and visible with fashion. I then turned my attention to the testicular component of this and noted that there was a slightly larger than golf ball sized hydrocele sac surrounding the testis itself. I skeletonized this further and then incised it for approximately 1 cm draining another 200 mL of dark yellow and blood-tinged fluid from the testis. I opened this longitudinally and inspected. There appeared to be an old hematoma in the bottom of this, is a small amount of old blood on the outside of the tunica albuginea and I suspect that this was residual from his prior drainage, likely a small post-drainage hematoma. This section of the tunica vaginalis was even thicker than the first component. I was able to excise redundant tissue bilaterally before oversewing the edges using a 2-0 Vicryl stitch. At the conclusion of the reconstruction, there was excellent hemostasis and appropriate-appearing testis with intact cord structures. At that time, I inspected the inside of the scrotum for hemostasis, which was excellent. I then placed a [place] drain via the most dependent portion of the scrotum. This was sutured in place using 2-0 chromic. I placed a cord block with 0.5% Marcaine. I then proceeded to replace the testis into the scrotum. I closed dartos fascia with a running 2-0 Vicryl followed by closure of the skin with a 2-0 vertical mattress chromic stitches. Skin was infiltrated with 0.5% Marcaine. Wound was dressed with bacitracin, fluffs on the scrotal support and the case was concluded. The patient was extubated and taken to the PACU in stable condition. I attest to the content of the Intraoperative Record and any orders documented therein. Any exceptio ns are noted below.
[2016-12-18] MEDS ORDERED: PRT40 PO (11:54)
[2016-12-18] MEDS ORDERED: CRFUDL PO (11:54)
[2016-12-18] MEDS ORDERED: HYDR-3983 PO (11:54)
[2016-12-18] MEDS ORDERED: CLC150 PO (11:54)
[2016-12-18] MEDS ORDERED: LCTX PO (11:54)
[2017-01-09] MEDS ORDERED: CLC/300 PO (13:44)
== END 2016-12-03 11:50 | disposition home or self-care (01) ==
LOC: C.ACU 10:32
PROVIDERS: ATTEND Urology
DX: N43.3 Hydrocele, unspecified (principal); N40.0 Benign prostatic hyperplasia without lower urinary tract symptoms; M19.90 Unspecified osteoarthritis, unspecified site

== ENCOUNTER 2016-12-13 22:35 | Inpatient (IN) | payer BC ==
[~2016-12-13] VITALS: Ht 188 cm; Wt 90.9 kg
[~2016-12-13 22:35] MED LIST changes: -CIPROFLOXACIN / D5W 400 MG IV SCH; +HYDR-5688 PO; -LACTATED RINGER'S 1000ML 1,000 ML IV SCH
[2016-12-13] MEDS ORDERED: ONDANSETRON INJ 2 MG/ML 2 ML VIAL IV STA (22:57)
[2016-12-13] MEDS ORDERED: MoRPHine SULFATE 4 MG/ML 1 ML CARP\\VIAL IV STA (22:57)
[2016-12-13] MEDS ORDERED: SODIUM CHLORIDE 0.9% 1000ML 1,000 ML IV STA (22:57)
[2016-12-13] MEDS ORDERED: IMIPENEM/CILASTATIN IV 500 MG in DEXTROSE 5% 100ML 100 ML IV STA (23:02)
[2016-12-13] MEDS ORDERED: VANCOMYCIN INJ 2,275 MG in SODIUM CHLORIDE 0.9% 500ML 500 ML IV STA (23:02)
[2016-12-13] MEDS ORDERED: OPTIRAY 320 IV PRN (23:15)
[2016-12-13 23:35] LABS: HEMATOCRIT 27.1 % (42-52); MEAN CELL VOLUME 81.9 fL (80-100); MEAN CORPUSCULAR HEMOGLOBIN 25.7 pg (25-34); MEAN CORPUSCULAR HGB CONC 31.4 g/dl (32-36); PLATELET COUNT 268 K/uL (130-400); RED BLOOD COUNT 3.31 M/uL (4.7-6.1); WHITE BLOOD COUNT 14.33 K/uL (4.8-10.8)
[2016-12-14] VITALS (10 sets, daily range): BP systolic 90–102; BP diastolic 51–62; PULSE 50–73; TEMP 36.5–37.4; O2SAT 97–100; Ht 188 cm; Wt 90.9 kg
[2016-12-14 00:02] LABS: BASO % 0.1 %; BASO ABS # 0.02 K/uL (0-0.2); COMPLETE YES; IG% 0.3 %; LYMPH % 6.5 %; LYMPH ABS # 0.93 K/uL (1.2-3.4); MONO % 7.9 %; NEUT % 85.2 %
[2016-12-14 00:06] LABS: INR 1.3 (0.9-1.1); PARTIAL THROMBOPLASTIN RATIO 1.4; PROTHROMBIN TIME (PATIENT) 13.9 SECONDS (9.0-12.0)
[2016-12-14 00:16] LABS: BUN/CREATININE RATIO 19.5 (10-20); CALCIUM 7.6 mg/dl (8.5-10.1); CREATININE 0.68 mg/dl (0.60-1.40)
[2016-12-14 00:18] LABS: ALB/GLOB RATIO 0.6 (0.9-2)
[2016-12-14] MEDS ORDERED: CALCIUM GLUCONATE 10% 10 ML VIAL IV STA (00:30)
[2016-12-14 00:39] LABS: URINE APPEARANCE CLEAR (CLEAR); URINE BILIRUBIN NEG (NEG); URINE COLOR DK YELLOW; URINE EPITHELIAL CELL AUTO >30 /lpf (0-5); URINE NITRITE NEG (NEG); URINE SPECIFIC GRAVITY > 1.045 (1.000-1.030); UROBILINOGEN NEG (NEG); ZZUR CULT IF INDIC CLEAN CATCH NO
[2016-12-14] MEDS ORDERED: METRONIDAZOLE 500MG / 100ML NSS IV STA (00:39)
[2016-12-14 00:43] LABS: ISTAT CREATININE 0.7 mg/dl (0.6-1.3); ISTAT HEMOGLOBIN 13.3 g/dl (14.0-18.0); ISTAT IONIZED CALCIUM 1.02 mmol/l (1.12-1.32)
[2016-12-14 00:45] LABS: MANUAL MICROSCOPIC REQUIRED? NO; REVIEW REQ? NO
[2016-12-14] MEDS ORDERED: ONDANSETRON INJ 2 MG/ML 2 ML VIAL IV PRN ×2 (01:00→04:30)
[2016-12-14] MEDS ORDERED: ALUMINUM/MAGNESIUM/SIMETH (MAALOX MAX) 30 ML UDC PO PRN (01:00)
[2016-12-14] MEDS ORDERED: MAGNESIUM HYDROXIDE SUSP 30 ML UDC PO PRN (01:00)
[2016-12-14] MEDS ORDERED: ACETAMINOPHEN 325 MG TAB PO PRN (01:00)
[2016-12-14] MEDS ORDERED: ZOLPIDEM TARTRATE 5 MG TAB PO PRN (01:00)
[2016-12-14] MEDS ORDERED: ZOLP10TA PO (01:01)
[2016-12-14] MEDS ORDERED: POLYETHYLENE (MIRALAX) 17 GM PACK PO PRN (01:30)
[2016-12-14] MEDS ORDERED: VANCOMYCIN CONSULT ACTIVE PRN (01:30)
[2016-12-14] MEDS ORDERED: MoRPHine SULFATE 2 MG/ML CARP IV PRN (01:30)
--- NOTE | 2016-12-14 01:38 | EMERGENCY ROOM VISIT NOTE ---
History First contact with patient: 22:41 Chief Complaint: FEVER Stated Complaint: HYDROCELE FIXED TWO WEEKS AGO- FEVER 105.5 History of Present Illness The patient is a 56 year old male who presents to the Emergency Room with complaints of fever, chills, testicular pain and swelling for the past 4 days. Patient had his left hydrocele drained and removed [address] Lewis. Tmax 103 today. He tried to get ahold of his urologist but was unable to. He took Tylenol a few hours ago. Patient denies chest pain, dyspnea, cough, congestion, abdominal pain, back pain, headache, neck stiffness, sore throat. Review of Systems See HPI for pertinent positives & negatives. A total of 10 systems reviewed and were otherwise negative. Past Medical/Surgical History Medical Problems: (1) GERD (gastroesophageal reflux disease) (2) HTN (hypertension) (3) Scrotal infection Surgical Problems: (1) Hx of gastric bypass Family History Patient reports no known family medical history. Social History Smoking Status: Never Smoker Alcohol Use: none Drug Use: none Marital Status: Housing Status: lives with significant other Occupation Status: employed Current/Historical Medications Scheduled Pediatric Multiple Vitamin W/ (Flintstones Chewable), 1 TAB PO BID Zolpidem Tartrate (Ambien), 10 MG PO HS Allergies Coded Allergies: Amoxicillin (Verified Allergy, Unknown, RASH, 12/03/16) Physical Exam Vital Signs Date Time Temp Pulse Resp B/P (MAP) Pulse Ox O2 Delivery O2 Flow Rate FiO2 12/14/16 01:07 79 18 102/59 97 Room Air 12/14/16 01:04 80 12/14/16 00:24 81 20 92/51 95 Room Air 12/13/16 22:39 37.9 98 20 115/70 98 Room Air Physical Exam VITALS: Vitals are noted on the nurse's note and reviewed by myself. Vital signs febrile GENERAL: Pleasant male, in no acute distress, nondiaphoretic, well-developed well-nourished. SKIN: The skin was without rashes, erythema, edema, or bruising. There is no tenting of the skin. Capillary reflex less than 2 seconds. HEAD: Normocephalic atraumatic. EARS: External auditory canals clear, tympanic membranes pearly mccartney without erythema or effusion bilaterally. EYES: Pupils equal round and reactive to light and accommodation. Conjunctivae without injection, sclerae without icterus. Extraocular movements intact. NOSE: Patent, turbinates without inflammation or discharge. No sinus tenderness. MOUTH: Mucous membranes mildly dry. Pharynx without erythema or exudate. Uvula midline. Airway patent. Tongue does not deviate. NECK: Supple without nuchal rigidity. No lymphadenopathy. No thyromegaly. Cervical spine is nontender. No JVD. HEART: Regular rate and rhythm without murmurs gallops or rubs. LUNGS: Clear to auscultation bilaterally without wheezes, rales or rhonchi. No dullness to percussion. No retractions or accessory muscle use. ABDOMEN: Positive bowel sounds x 4. Normal tympanic percussion. Soft, nontender, without masses or organomegaly. Rondon sign negative. No guarding or rebound tenderness. No CVA tenderness exam: Scrotum edematous erythematous warm to touch dark purple in color with left inguinal lymph node enlargement with incision site intact. Tender to palpation. MUSCULOSKELETAL: No muscle atrophy, erythema, or edema noted. NEURO: Patient was alert and oriented to person place and time. Normal sensation to light and sharp touch. No focal neurological deficits. Medical Decision & Procedures Laboratory Results 12/13/16 23:23 Red Blood Count 3.31, Mean Corpuscular Volume 81.9, Mean Corpuscular Hemoglobin 25.7, Mean Corpuscular Hemoglobin Concent 31.4, Mean Platelet Volume 9.0, Neutrophils (%) (Auto) 85.2, Lymphocytes (%) (Auto) 6.5, Monocytes (%) (Auto) 7.9, Eosinophils (%) (Auto) 0.0, Basophils (%) (Auto) 0.1, Neutrophils # (Auto) 12.21, Lymphocytes # (Auto) 0.93, Monocytes # (Auto) 1.13, Eosinophils # (Auto) 0.00, Basophils # (Auto) 0.02 12/13/16 23:23 Test 12/13/16 23:23 12/13/16 23:25 12/13/16 23:31 12/14/16 00:20 White Blood Count 14.33 K/uL (4.8-10.8) Red Blood Count 3.31 M/uL (4.7-6.1) Hemoglobin 8.5 g/dL (14.0-18.0) Hematocrit 27.1 % (42-52) Mean Corpuscular Volume 81.9 fL (80-100) Mean Corpuscular Hemoglobin 25.7 pg (25-34) Mean Corpuscular Hemoglobin Concent 31.4 g/dl (32-36) Platelet Count 268 K/uL (130-400) Mean Platelet Volume 9.0 fL (7.4-10.4) Neutrophils (%) (Auto) 85.2 % Lymphocytes (%) (Auto) 6.5 % Monocytes (%) (Auto) 7.9 % Eosinophils (%) (Auto) 0.0 % Basophils (%) (Auto) 0.1 % Neutrophils # (Auto) 12.21 K/uL (1.4-6.5) Lymphocytes # (Auto) 0.93 K/uL (1.2-3.4) Monocytes # (Auto) 1.13 K/uL (0.11-0.59) Eosinophils # (Auto) 0.00 K/uL (0-0.5) Basophils # (Auto) 0.02 K/uL (0-0.2) RDW Standard Deviation 39.6 fL (36.4-46.3) RDW Coefficient of Variation 13.0 % (11.5-14.5) Immature Granulocyte % (Auto) 0.3 % Immature Granulocyte # (Auto) 0.04 K/uL (0.00-0.02) Red Blood Cell Morphology Unremarkable Prothrombin Time 13.9 SECONDS (9.0-12.0) Prothromb Time International Ratio 1.3 (0.9-1.1) Activated Partial Thromboplast Time 36.8 SECONDS (21.0-31.0) Partial Thromboplastin Ratio 1.4 Est Creatinine Clear Calc Drug Dose 141.1 ml/min Estimated GFR () 123.7 Estimated GFR (Non- 106.8 BUN/Creatinine Ratio 19.5 (10-20) Calcium Level 7.6 mg/dl (8.5-10.1) Total Bilirubin 1.6 mg/dl (0.2-1) Aspartate Amino Transf (AST/SGOT) 26 U/L (15-37) Alanine Aminotransferase (ALT/SGPT) 29 U/L (12-78) Alkaline Phosphatase 102 U/L (45-117) Total Protein 6.9 gm/dl (6.4-8.2) Albumin 2.6 gm/dl (3.4-5.0) Globulin 4.3 gm/dl (2.5-4.0) Albumin/Globulin Ratio 0.6 (0.9-2) Procalcitonin 0.20 ng/ml (0-0.5) Bedside Lactic Acid Venous 0.91 mmol/L (0.90-1.70) Bedside Hemoglobin 13.3 g/dl (14.0-18.0) Bedside Hematocrit 39 % (42-52) Bedside Sodium 133 mEq/L (135-144) Bedside Potassium 4.1 mEq/L (3.3-5.0) Bedside Chloride 98 mEq/L (101-112) Bedside Total CO2 23 mEq/l (24-31) Anion Gap 18.0 mmol/L (16-25) Bedside Blood Urea Nitrogen 14 mg/dl (7-18) Bedside Creatinine 0.7 mg/dl (0.6-1.3) Bedside Glucose (other) 99 mg/dl (70-99) Bedside Ionized Calcium (Karen) 1.02 mmol/l (1.12-1.32) Urine Color DK YELLOW Urine Appearance CLEAR (CLEAR) Urine pH 7.0 (4.5-7.5) Urine Specific [place] > 1.045 (1.000-1.030) Urine Protein 1+ (NEG) Urine Glucose (UA) NEG (NEG) Urine Ketones NEG (NEG) Urine Occult Blood NEG (NEG) Urine Nitrite NEG (NEG) Urine Bilirubin NEG (NEG) Urine Urobilinogen NEG (NEG) Urine Leukocyte Esterase NEG (NEG) Urine WBC (Auto) 1-5 /hpf (0-5) Urine RBC (Auto) 5-10 /hpf (0-4) Urine Hyaline Casts (Auto) 1-5 /lpf (0-5) Urine Epithelial Cells (Auto) >30 /lpf (0-5) Urine Bacteria (Auto) NEG (NEG) Medications Administered Medications (Trade) Dose Ordered Sig/Fela Route Start Time Stop Time Status Last Admin Dose Admin Sodium Chloride 1,000 ml @ 999 mls/hr Q1H1M STAT IV 12/13/16 22:57 12/13/16 23:57 DC 12/13/16 23:18 999 MLS/HR Morphine Sulfate (MoRPHine SULFATE INJ) 4 mg NOW STAT IV 12/13/16 22:57 12/13/16 23:00 DC 12/13/16 23:17 4 MG Ondansetron HCl (Zofran Inj) 4 mg NOW STAT IV 12/13/16 22:57 12/13/16 23:00 DC 12/13/16 23:17 4 MG Imipenem/ Cilastatin Sodium 500 mg/Dextrose 110 ml @ 100 mls/hr NOW STAT IV 12/13/16 23:02 12/14/16 00:07 DC 12/13/16 23:57 100 MLS/HR Vancomycin HCl 2275 mg/Sodium Chloride 545.5 ml @ 200 mls/hr ONE STAT IV 12/13/16 23:02 12/14/16 01:45 12/14/16 00:36 200 MLS/HR Calcium Gluconate (Calcium Gluconate 10%) 1,000 mg NOW STAT IV 12/14/16 00:30 12/14/16 00:32 DC 12/14/16 00:53 1,000 MG Metronidazole (Flagyl / Nss) 500 mg NOW STAT IV 12/14/16 00:39 12/14/16 00:40 DC 12/14/16 01:15 500 MG ED Course Prior records/ancillary studies reviewed. Triage Nursing notes reviewed. Additional history obtained from family. The patient's history was concerning for fever. Differential diagnosis: Etiologies such as postsurgical complication, FG, viral syndrome, otitis, pharyngitis, pneumonia, influenza, meningitis, urinary tract infection, sepsis, bacteremia, as well as others were entertained. Physical examination: The patient is alert and interactive ER treatment provided: Primaxin, vancomycin, Flagyl, IV fluids On reassessment the patient felt better. Diagnostics interpreted by me: The labs revealed leukocytosis, anemia, negative lactic acid, blood cultures pending Imaging studies: CT of the pelvis reviewed and read by stat radiology Chest X-ray with no acute consolidation, pneumothorax or free air per my interpretation. Consultation: A consultation was placed with urology, Dr. Samaniego. The case was discussed and diagnostics were reviewed. The patient was evaluated in the ER for further treatment. He recommends medical admission and will drain the scrotum this morning in the OR. This appears to be consistent with scrotal infection from recent surgery. Patient was neurovascular and neurologically intact. No signs of FG. Negative lactic acid. Blood cultures are pending. Patient will be evaluated by urology and medicine. By the evaluation outlined above emergent etiologies such as otitis, pharyngitis, pneumonia, meningitis, urinary tract infection, sepsis, bacteremia, as well as others were deemed relatively unlikely. The pt informed about the findings as listed above. All questions were answered and pleased with the treatment. Case reviewed with my attending. Medical Decision As above Impression Primary Impression: Scrotal infection Additional Impression: Fever Departure Information Dispostion Being Evaluated By Hospitalist Condition FAIR Referrals Michael Maza M.D. ([facility]) (PCP) Patient Instructions My [facility] Problem Qualifiers
--- NOTE | 2016-12-14 01:43 | History and Physical ---
History & Physical Date & Time of Service: Dec 14, 2016 at 01:37 Chief Complaint: Hydrocele Fixed Two Weeks Ago- Fever 105.5 Primary Care Physician: Michael Maza M.D. ([place]) History of Present Illness Source: patient This is a 56 yo Male with past medical hx of obesity s/p bariatric surgery in 2015 , [facility]A underwent Left hydrocele surgery by Urology Dr Lewis on 12/03/16 presents today with fever , worsening of pain and swelling at scrotal area , Pt had continued swelling, ecchymosis on left scrotal area after surgery was seen at Urology office for the past 2 days pt continued to spike temp , swelling and ecchymosis got progressively worse came to ED , CT abdomen /pelvis shows -hematoma vs abscess in scrotal area Urology notified pt taken OR for emergent i&D Past Medical/Surgical History Medical Problems: (1) GERD (gastroesophageal reflux disease) Status: Chronic (2) HTN (hypertension) Status: Chronic Surgical Problems: (1) Hx of gastric bypass Status: Resolved Family History Patient reports no known family medical history. Social History Smoking Status: Never Smoker Drug Use: none Marital Status: Occupational Status: employed Allergies Coded Allergies: Amoxicillin (Verified Allergy, Unknown, RASH, 12/03/16) Home Medications Scheduled Pediatric Multiple Vitamin W/ (Flintstones Chewable), 1 TAB PO BID Zolpidem Tartrate (Ambien), 10 MG PO HS Review of Systems Constitutional: + fever, + chills, + sweats, + weakness, + fatigue Respiratory: No cough, No sputum, No wheezing, No shortness of breath, No dyspnea on exertion, No dyspnea at rest, No hemoptysis, No problem reported Cardiovascular: No chest pain, No orthopnea, No PND, No edema, No claudication , No palpitations, No problem reported Abdomen: No pain, No nausea, No vomiting, No diarrhea, No constipation, No GI bleeding, No problem reported Genitourinary - Male: + problem reported (scrotal swelling , pain , eccymosis ) Neurologic: No memory loss, No paralysis, No weakness, No numbness/tingling, No vertigo, No balance problems, No problem reported Physical Exam Vital Signs Date Time Temp Pulse Resp B/P (MAP) Pulse Ox O2 Delivery O2 Flow Rate FiO2 12/14/16 01:07 79 18 102/59 97 Room Air 12/14/16 01:04 80 12/14/16 00:24 81 20 92/51 95 Room Air 12/13/16 22:39 37.9 98 20 115/70 98 Room Air General Appearance: no apparent distress Eyes: sclerae normal Respiratory/Chest: chest non-tender, lungs clear, normal breath sounds, no respiratory distress Cardiovascular: regular rate, rhythm Abdomen/GI: non tender, soft Genitourinary - Male: + pertinent finding (marked scrotal swelling /hematoma ) Extremities/Musculoskelatal: no pedal edema Neurologic/Psych: alert, oriented x 3 Diagnostics Laboratory Results Results Past 24 Hours Test 12/13/16 23:23 12/13/16 23:25 12/13/16 23:31 12/14/16 00:20 Range/Units White Blood Count 14.33 4.8-10.8 K/uL Red Blood Count 3.31 4.7-6.1 M/uL Hemoglobin 8.5 14.0-18.0 g/dL Hematocrit 27.1 42-52 % Mean Corpuscular Volume 81.9 80-100 fL Mean Corpuscular Hemoglobin 25.7 25-34 pg Mean Corpuscular Hemoglobin Concent 31.4 32-36 g/dl Platelet Count 268 130-400 K/uL Mean Platelet Volume 9.0 7.4-10.4 fL Neutrophils (%) (Auto) 85.2 % Lymphocytes (%) (Auto) 6.5 % Monocytes (%) (Auto) 7.9 % Eosinophils (%) (Auto) 0.0 % Basophils (%) (Auto) 0.1 % Neutrophils # (Auto) 12.21 1.4-6.5 K/uL Lymphocytes # (Auto) 0.93 1.2-3.4 K/uL Monocytes # (Auto) 1.13 0.11-0.59 K/uL Eosinophils # (Auto) 0.00 0-0.5 K/uL Basophils # (Auto) 0.02 0-0.2 K/uL RDW Standard Deviation 39.6 36.4-46.3 fL RDW Coefficient of Variation 13.0 11.5-14.5 % Immature Granulocyte % (Auto) 0.3 % Immature Granulocyte # (Auto) 0.04 0.00-0.02 K/uL Red Blood Cell Morphology Unremarkable Prothrombin Time 13.9 9.0-12.0 SECONDS Prothromb Time International Ratio 1.3 0.9-1.1 Activated Partial Thromboplast Time 36.8 21.0-31.0 SECONDS Partial Thromboplastin Ratio 1.4 Sodium Level 136 136-145 mmol/L Potassium Level 4.0 3.5-5.1 mmol/L Chloride Level 101 98-107 mmol/L Carbon Dioxide Level 25 21-32 mmol/L Anion Gap 10.0 18.0 16-25 mmol/L Blood Urea Nitrogen 13 7-18 mg/dl Creatinine 0.68 0.60-1.40 mg/dl Est Creatinine Clear Calc Drug Dose 141.1 ml/min Estimated GFR () 123.7 Estimated GFR (Non- 106.8 BUN/Creatinine Ratio 19.5 10-20 Random Glucose 92 70-99 mg/dl Calcium Level 7.6 8.5-10.1 mg/dl Total Bilirubin 1.6 0.2-1 mg/dl Aspartate Amino Transf (AST/SGOT) 26 15-37 U/L Alanine Aminotransferase (ALT/SGPT) 29 12-78 U/L Alkaline Phosphatase 102 45-117 U/L Total Protein 6.9 6.4-8.2 gm/dl Albumin 2.6 3.4-5.0 gm/dl Globulin 4.3 2.5-4.0 gm/dl Albumin/Globulin Ratio 0.6 0.9-2 Procalcitonin 0.20 0-0.5 ng/ml Bedside Lactic Acid Venous 0.91 0.90-1.70 mmol/L Bedside Hemoglobin 13.3 14.0-18.0 g/dl Bedside Hematocrit 39 42-52 % Bedside Sodium 133 135-144 mEq/L Bedside Potassium 4.1 3.3-5.0 mEq/L Bedside Chloride 98 101-112 mEq/L Bedside Total CO2 23 24-31 mEq/l Bedside Blood Urea Nitrogen 14 7-18 mg/dl Bedside Creatinine 0.7 0.6-1.3 mg/dl Bedside Glucose (other) 99 70-99 mg/dl Bedside Ionized Calcium (Karen) 1.02 1.12-1.32 mmol/l Urine Color DK YELLOW Urine Appearance CLEAR CLEAR Urine pH 7.0 4.5-7.5 Urine Specific [place] > 1.045 1.000-1.030 Urine Protein 1+ NEG Urine Glucose (UA) NEG NEG Urine Ketones NEG NEG Urine Occult Blood NEG NEG Urine Nitrite NEG NEG Urine Bilirubin NEG NEG Urine Urobilinogen NEG NEG Urine Leukocyte Esterase NEG NEG Urine WBC (Auto) 1-5 0-5 /hpf Urine RBC (Auto) 5-10 0-4 /hpf Urine Hyaline Casts (Auto) 1-5 0-5 /lpf Urine Epithelial Cells (Auto) >30 0-5 /lpf Urine Bacteria (Auto) NEG NEG Microbiology Results 12/13/16 Blood Culture, Received Pending 12/13/16 Blood Culture, Received Pending Diagnostic Radiology CT ABDOMEN /PELVIS : STATRAD : large heterogenous fluid and gas containing pocket in the left inguinal region extending to the left hemiscrotum , Measures approx 11.5 cm X 16.3 cm X 8.9 cm . It is non specific , appears to be larger than expected for post operative state , presence of Gas could be post surgical , but may be related to infection . The intermediate attenuation material likely represents blood products . The large structures appear to contain a few septations , A developing abscess is not ruled out , Surgical consultation recommended . Impression Assessment and Plan SCROTAL ABSCESS: -s/p recent Left hydrocele surgery approx 10 days back ( surgery on 12/03/16 ) presents with fever , worsening of pain , swelling , drainage at scrotal area -CT abdomen pelvis suggestive of scrotal abscess /hematoma -pt is taken to OR for emergent I&D by Urology -pt is admitted to Medical floor -IV Abx with vancomycin /Azactam ( pt is allergic to PCN ) -blood culture ordered -ID eval requested RECENT LEFT HYDROCELECTOMY : possible post op complication as above Urology consulted FULL CODE : DVT PROPHYLAXIS : ambulate SCD and teds pharmacological anticoagulation avoided for I&D of scrotal hematoma DISPOSITION ; expected to be discharged home when medically stable Level of Care Med/Surg VTE Prophylaxis VTE Risk Assessment Done? Y/N: Yes Risk Level: Moderate Given or contraindicated: T.E.D. Stockings, SCD's Additional Copies To Reyes Lewis M.D.
[2016-12-14] MEDS ORDERED: BUPIVACAINE 0.5 % 5 MG/1 ML MPF 30ML VIAL ONE (02:01)
--- NOTE | 2016-12-14 02:05 | Urology Consultation ---
History General Date of Service: Dec 14, 2016. Primary Care Physician: Michael Maza M.D. ([place]) Pt seen a urologist before?: Yes If yes, why?: hydrocele repair 10 days ago on left History of Present Illness Pt had a surgical repair of his left hydrocele of the cord and testis on the left [address] Lewis. He had ongoing swelling and he began to have a low grade fever 3 days ago . He has not been on antibiotics until this evening. He came in this evening when his took his temp and it was 103. His white count is 14.33 with a left shift . He last ate at 7 pm and had a sip of water [address] scan shows a complex fluid collection 8.6 by 16 .3 cm suspicious for an infected hematoma. Pt has had significant ecchymosis which has persisted but no significant erythema Laboratory Labs were reviewed and are within normal limits unless listed below. Labs are available in the chart and at [facility] Problem List Medical Problems: (1) Scrotal abscess Status: Acute (2) Fever Status: Acute Past History Past Surgical History: cholecystectomy, gastric bypass Family History Patient reports no known family medical history. Social History Hx Tobacco Use In Past Year?: No Smoking: non-smoker Alcohol: no current use Drug use: none Marital status: Occupation status: employed Allergies Coded Allergies: Amoxicillin (Verified Allergy, Unknown, RASH, 12/03/16) Medications Home Medications: Home Meds and Scripts Medications Dose Route/Sig Max Daily Dose Days Date Category Ambien (Zolpidem Tartrate) 10 Mg Tab 10 Mg PO HS 12/14/16 Reported Flintstones Chewable (Pediatric Multiple Vitamin W/) 1 Chw Chw 1 Tab PO BID 11/03/16 Reported Inpatient Medications: Current Inpatient Medications Medications (Trade) Dose Ordered Sig/Fela Route Start Time Stop Time Status Last Admin Dose Admin Ioversol (Optiray 320) 100 ml UD PRN IV 12/13/16 23:15 12/17/16 23:14 Acetaminophen (Tylenol Tab) 650 mg Q4H PRN PO 12/14/16 01:00 01/13/17 00:59 Al Hydrox/Mg Hydrox/Simethicone (Maalox Max Susp) 15 ml Q4H PRN PO 12/14/16 01:00 01/13/17 00:59 Magnesium Hydroxide (Milk Of Magnesia Susp) 30 ml Q6H PRN PO 12/14/16 01:00 01/13/17 00:59 Polyethylene (Miralax Powder Packet) 17 gm DAILY PRN PO 12/14/16 01:30 01/13/17 01:29 Ondansetron HCl (Zofran Inj) 4 mg Q6H PRN IV 12/14/16 01:00 01/13/17 00:59 Vancomycin HCl 1000 mg/Sodium Chloride 270 ml @ 125 mls/hr Q12 IV 12/14/16 09:00 12/24/16 08:59 UNV Aztreonam 1000 mg/ Dextrose 110 ml @ 100 mls/hr Q8H IV 12/14/16 01:30 12/24/16 01:29 UNV Morphine Sulfate (MoRPHine SULFATE INJ) 1 mg Q4 PRN IV 12/14/16 01:30 12/28/16 01:29 Sodium Chloride 1,000 ml @ 100 mls/hr Q10H IV 12/14/16 01:30 01/13/17 01:29 Zolpidem Tartrate (Ambien Tab) 10 mg HSZ PRN PO 12/14/16 22:00 01/13/17 00:59 Multivitamins (Flintstones Complete Tab) 1 tab BID PO 12/14/16 09:00 01/13/17 08:59 UNV Vancomycin HCl (Consult) 1 ea UD PRN N/A 12/14/16 01:30 01/13/17 01:29 Review of Systems Review of Systems Constitutional: + see HPI, + fever, + chills, + frequent headaches, + weight loss, + problem reported Physical Exam Vital Signs: Vital Signs Past 12 Hours Date Time Temp Pulse Resp B/P (MAP) Pulse Ox O2 Delivery O2 Flow Rate FiO2 12/14/16 01:07 79 18 102/59 97 Room Air 12/14/16 01:04 80 12/14/16 00:24 81 20 92/51 95 Room Air 12/13/16 22:39 37.9 98 20 115/70 98 Room Air Physical Exam: General Appearance: + mild distress ENT: normal ENT inspection Neck: supple Respiratory/Chest: lungs clear Cardiovascular: regular rate, rhythm Extremities: non-tender, no calf tenderness Skin: normal color Lymphatic: no adenopathy Additional Comments: pt has a large tender left swollen hemiscrotum with minimal erythema and ecchymosis that extends into his groin and suprapubic area unable to palpate left testis r testis feels nl nl male phallus fullness extends into the cord beyond the external ring Assessment & Plan Assessment & Plan Imaging: CT fever and probable infected hematoma pt receiving primaxin ,vancomycin and metronidazole plan urgent incision and drainage of abscess discussed with pt and he has signed a consent
[2016-12-14] MEDS ORDERED: BACITRACIN 50000 UNIT VIAL ONE ×2 (02:12→03:24)
[2016-12-14] MEDS ORDERED: PROPOFOL IV EMULSION 10 MG/ML 20 ML VIAL IV ONE (02:24)
[2016-12-14] MEDS ORDERED: SUCCINYLCHOLINE CHLORIDE 20 MG/ML 10 ML VIAL IV ONE (02:24)
[2016-12-14] MEDS ORDERED: LIDOCAINE HCL 2% 2 ML VIAL (20MG/ML) ONE (02:24)
[2016-12-14] MEDS ORDERED: ROCURONIUM BROMIDE 10 MG/ML 5 ML VIAL ONE (02:24)
[2016-12-14] MEDS ORDERED: MIDAZOLAM HCL 1 MG/ML 2ML VIAL ONE (02:25)
[2016-12-14] MEDS ORDERED: FENTANYL CITRATE INJ 50 MCG/1 ML 2 ML VIAL ONE (02:25)
[2016-12-14] MEDS ORDERED: ONDANSETRON INJ 2 MG/ML 2 ML VIAL ONE (03:22)
[2016-12-14] MEDS ORDERED: KETOROLAC TROMETHAMINE 30 MG/ML VIAL ONE (03:29)
--- NOTE | 2016-12-14 04:22 | [facility] Post Operative Brief Note ---
Immediate Operative Summary Operative Date Dec 14, 2016. Pre-Operative Diagnosis Left Scrotal Abcess Post-Operative Diagnosis Infected Hematoma Procedure(s) Performed Incision and Evacuation of Left Scrotal Hematoma Surgeon Dr. Samaniego Flatwork Feeder Surgeon(s) None Estimated Blood Loss 10 ml Findings foul smelling liquified and clotted blood indurated cord testis appeared pink Specimens Microbiology 1. Left scrotal abcess drainage- gram stain, culture and sensitivity, aerobic and anerobic Drains joseph half inch and iodoform gauze from wound Disposition Recovery Room / PACU
--- NOTE | 2016-12-14 04:26 | Anesthesiology Progress Note ---
Anesthesia Post Op Note Date & Time Dec 14, 2016 at 04:25 Vital Signs Pain Intensity: 0 Vital Signs Past 12 Hours Date Time Temp Pulse Resp B/P (MAP) Pulse Ox O2 Delivery O2 Flow Rate FiO2 12/14/16 02:30 37.9 78 18 105/59 98 12/14/16 01:07 79 18 102/59 97 Room Air 12/14/16 01:04 80 12/14/16 00:24 81 20 92/51 95 Room Air 12/13/16 22:39 37.9 98 20 115/70 98 Room Air Notes Mental Status: alert / awake / arousable, participated in evaluation Pt Amnestic to Procedure: Yes Nausea / Vomiting: adequately controlled Pain: adequately controlled Airway Patency, RR, SpO2: stable & adequate BP & HR: stable & adequate Hydration State: stable & adequate Anesthetic Complications: no major complications apparent
[2016-12-14] MEDS ORDERED: HYDROmorphone INJ 2 MG/ML SYR/VIAL IV PRN (04:30)
[2016-12-14] MEDS ORDERED: HYDROCODONE/ACETAMINOPHEN 7.5/325MG TAB PO PRN (04:30)
[2016-12-14] MEDS ORDERED: PHENYLEPHRINE 100MCG/ML 5ML SYR IV PRN (04:30)
[2016-12-14] MEDS ORDERED: EpHEDrine SULFATE INJ 50 MG/ML AMP IV PRN (04:30)
[2016-12-14] MEDS ORDERED: ATROPINE SULFATE 0.1 MG/ML 5ML SYR IV PRN (04:30)
--- NOTE | 2016-12-14 04:46 | Pharmacy Progress Note ---
Pharmacy Abx Initial Consult Date of Service Dec 14, 2016. Pharmacy Dosing Scope Date of Consult: 12/14/16 Consultation requested by: Dr. Wells Pharmacy is consulted to initiate IV Vancomycin dosing therapy, order appropriate labs and adjust drug dose/frequency. Subjective The patient is a 56 year old male admitted on 12/14/16 with a scrotal abscess. The patient had a surgical repair of his left hydrocele of the cord and testis on the left [address] Lewis. He had ongoing swelling and he began to have a low grade fever 3 days ago . He has not been on antibiotics until this evening. He came in this evening when his took his temp and it was 103. He received loading dose of Vancomycin and Primaxin in the ED and was then taken to the OR by Dr. Samaniego for drainage of his abscess. Dr. Wells consulted pharmacy as previously noted for Vancomycin and also prescribed Aztreonam. Objective Height (Feet): 6 Height (Inches): 2.00 Weight (Kilograms): 90.910 Vital Signs (Past 12Hrs) Vital Signs Past 12 Hours Date Time Temp Pulse Resp B/P (MAP) Pulse Ox O2 Delivery O2 Flow Rate FiO2 12/14/16 04:19 37.1 85 12 124/66 100 Mask 10 12/14/16 02:30 37.9 78 18 105/59 98 12/14/16 01:07 79 18 102/59 97 Room Air 12/14/16 01:04 80 12/14/16 00:24 81 20 92/51 95 Room Air 12/13/16 22:39 37.9 98 20 115/70 98 Room Air Lab Results (24Hrs) Laboratory Tests (24 Hours) Test 12/13/16 23:23 White Blood Count 14.33 K/uL (4.8-10.8) H Red Blood Count 3.31 M/uL (4.7-6.1) L Hemoglobin 8.5 g/dL (14.0-18.0) L Hematocrit 27.1 % (42-52) L Mean Corpuscular Volume 81.9 fL (80-100) Mean Corpuscular Hemoglobin 25.7 pg (25-34) Mean Corpuscular Hemoglobin Concent 31.4 g/dl (32-36) L Platelet Count 268 K/uL (130-400) Mean Platelet Volume 9.0 fL (7.4-10.4) Neutrophils (%) (Auto) 85.2 % Lymphocytes (%) (Auto) 6.5 % Monocytes (%) (Auto) 7.9 % Eosinophils (%) (Auto) 0.0 % Basophils (%) (Auto) 0.1 % Neutrophils # (Auto) 12.21 K/uL (1.4-6.5) H Lymphocytes # (Auto) 0.93 K/uL (1.2-3.4) L Monocytes # (Auto) 1.13 K/uL (0.11-0.59) H Eosinophils # (Auto) 0.00 K/uL (0-0.5) Basophils # (Auto) 0.02 K/uL (0-0.2) Procalcitonin 0.20 ng/ml (0-0.5) Micro Results Date/Time Source Procedure Growth Status 12/13/16 23:33 Blood Blood Culture Pending Received 12/13/16 23:23 Blood Blood Culture Pending Received Assessment & Plan Assessment 56 year old male with scrotal abscess post drainage in OR by Dr. Samaniego. Will continue Vancomycin and Aztreonam per Dr. Wells Plan Vancomycin for treatment of scrotal abscess. Vancomycin IV * Loading dose: 2875mg (25 mg/kg) * Maintenance dose: 1600 mg IV (17.5mg/kg) every 8 hours * Goal trough level for abscess : 15-20 mcg/mL * Trough level ordered prior to 1000 dose on 12/15/16. * I estimated patients half life a little under 6 hours. I am going to use an every 8 hour interval with a greater concentration. Pharmacy will continue to follow and will adjust dose/frequency as necessary. Thank you.
[2016-12-14] MEDS: SODIUM CHLORIDE 0.9% 1000ML 1,000 ML IV SCH ×3 (05:30→20:48)
--- NOTE | 2016-12-14 05:33 | OPERATIVE REPORT ---
DATE OF OPERATION: 12/14/2016 PROCEDURE PERFORMED: Incision and drainage of infected left hematoma. HISTORY OF PRESENTATION: The patient is a 56-year-old male status post hydrocelectomy [address] Lewis who postoperatively said that he had a lot of swelling and what appears to be ecchymoses. He was seen the first postoperative day in the office and the nurses removed his drain, but otherwise he had been told that he had swelling and did not think it was abnormal. He did go to see his family doctor 3 days ago and he had been having a low grade fever, family doctor told him not to worry about it until his temperature went above 101.5. This evening his temperature went up to 103 and his brought him to the Emergency Room. The ER did a CAT scan which showed what appeared to be a hematoma in the left hemiscrotum. I came to evaluate him and it was clear that he had a hematoma and he was febrile with a white count and this appeared to be infected and needed to be drained. Because of the size and because of the length of time I felt that it would be impossible to drain at the bedside adequately. He was taken to the operating room for adequate incision and drainage. DESCRIPTION OF THE PROCEDURE: The patient was taken to the operating room where he had Venodyne stockings placed. General anesthesia was administered. He had been given Primaxin, vancomycin and metronidazole by the hospitalist. He was prepped and draped in the usual sterile fashion in the supine position. The scrotum was so swollen that it made his penis difficult to see. An incision was made where I felt it was somewhat fluctuant in the left hemiscrotum, not through the old incision which was along the median raphe, more inferiorly. This incision was extended horizontally across the mid left hemiscrotum. The dartos muscle was quite thickened and indurated. It went down through this, and so I did hit, old blood began to gush out of the wound. This was quite foul smelling. We did take a culture and suctioned out all the old blood that we could, opened the wound up further, suctioned out even more old blood and old clot, did try to irrigate it as much old blood and old clot as I could, eventually mobilized the testes through the incision so that I could irrigate posteriorly to get all the adhesions out, again get all the old clot out and I kept irrigating until I did not see any old clot or old blood. There was no evidence of active bleeding. A few areas were debrided that appeared to have some necrotic skin, but the testis overall appeared to be pink. The cord was quite thickened and indurated, but again the testis and cord appeared to be viable and replaced the cord, prior to doing this, I placed a quarter inch Elma drain in the dependent portion of the left hemiscrotum and sutured it into place, placed the drain back into place and placed a Elma up all the way up to the external inguinal ring. I then closed the wound so there was about an inch open and then packed it with iodoform gauze copiously, so that it was opened all the way around into the inguinal area as well as posterior to the testis. Then the patient had fluff dressings placed. He had scrotal support placed and then after this was done he had been cleaned. Prior to doing this, he was prepped and draped and a Fuentes catheter was placed. The patient was transferred to the recovery room in stable condition. Estimated blood loss was 10 mL. Sponge and needle counts were correct. I attest to the content of the Intraoperative Record and any orders documented therein. Any exception s are noted below.
--- NOTE | 2016-12-14 06:56 | DIAGNOSTIC IMAGING REPORT ---
CHEST ONE VIEW PORTABLE CLINICAL HISTORY: Sepsis. COMPARISON STUDY: Chest radiograph November 03, 2016. FINDINGS: Lung volumes are normal. There is no consolidation. No pneumothorax or pleural effusion is present. Cardiac size is normal. Mediastinal contours are normal. There is no evidence of pulmonary edema. IMPRESSION: No acute cardiopulmonary findings. Electronically signed by: Blade Osborne M.D. 12/14/2016 6:55 AM Dictated Date/Time: 12/14/2016 6:54 AM
--- NOTE | 2016-12-14 07:07 | DIAGNOSTIC IMAGING REPORT ---
CT OF THE PELVIS WITH CONTRAST CT DOSE: 382.21 mGy.cm CLINICAL HISTORY: Fever. Recent surgery for hydrocele on December 03, 2016. TECHNIQUE: Axial images of the pelvis were obtained following intravenous injection of 93 cc Optiray 320 IV. COMPARISON STUDY: CT of the abdomen and pelvis November 03, 2016 and testicular ultrasound November 22, 2016. FINDINGS: Note is made of a large mixed attenuation fluid and gas containing collection within the left hemiscrotum that measures 15 x 15 x 10.4 cm. This has multiple areas of increased attenuation as well as multiple locules of gas, more than expected at this time point following surgery. There is moderate adjacent infiltration. Prominent inguinal lymph nodes are likely reactive. No additional fluid collections are identified on this exam. Visualized portions of the abdomen are unremarkable. Skeletal structures are unremarkable. IMPRESSION: Large complex mixed attenuation left hemiscrotum fluid collection, measuring approximately 15 x 15 x 10.4 cm. Gas within this collection could be postsurgical although is more than expected and favors an infectious process. Areas of increased attenuation suggest hemorrhage. Moderate adjacent infiltration. Overall, the findings are suggestive of an infectious process with possible infected hematoma. Electronically signed by: Blade Osborne M.D. 12/14/2016 7:06 AM Dictated Date/Time: 12/14/2016 6:58 AM
[2016-12-14 07:10] LABS: HEMATOCRIT 25.5 % (42-52); MEAN CELL VOLUME 83.3 fL (80-100); MEAN CORPUSCULAR HEMOGLOBIN 26.1 pg (25-34); MEAN CORPUSCULAR HGB CONC 31.4 g/dl (32-36); MEAN PLATELET VOLUME 9.3 fL (7.4-10.4); PLATELET COUNT 216 K/uL (130-400); RED BLOOD COUNT 3.06 M/uL (4.7-6.1); WHITE BLOOD COUNT 16.01 K/uL (4.8-10.8)
[2016-12-14 07:38] LABS: BUN/CREATININE RATIO 21.9 (10-20); CALCIUM 7.7 mg/dl (8.5-10.1); CREATININE 0.63 mg/dl (0.60-1.40); POTASSIUM 3.6 mmol/L (3.5-5.1)
[2016-12-14] MEDS: AZTREONAM IV 1,000 MG in DEXTROSE 5% 100ML 100 ML IV SCH ×3 (07:41→23:41)
[2016-12-14] MEDS: FLINTSTONES COMPLETE CHEWABLE TAB PO SCH ×2 (07:41→20:49)
[2016-12-14] MEDS: VANCOMYCIN INJ 1,600 MG in SODIUM CHLORIDE 0.9% 500ML 500 ML IV SCH ×2 (09:51→18:41)
--- NOTE | 2016-12-14 16:25 | Medical Consult ---
Consultation Date of Consultation: Dec 14, 2016. Attending Physician: Cabrera Fuller MD Reason for Consultation: Scrotal abscess History of Present Illness 56-year-old male with history of gastric bypass surgery, hypertension, but otherwise in good health underwent removal of left scrotal hydrocele approximately 10 days ago. Patient states that he had persistent swelling of the area after surgery, but 3 days ago began to notice progressively worsening pain and swelling along with fever and shaking chills. He came to the emergency department where he was found to have evidence of a scrotal abscess, and has now undergone surgical drainage. Gram stain of the fluid shows gram- positive cocci and gram-positive bacilli. He states that he is feeling much better postoperatively with much less pain, and currently afebrile. Currently being treated with vancomycin and aztreonam Past Medical/Surgical History Medical Problems: (1) Acute cholecystitis Status: Acute (2) Fever Status: Acute Medical Problems: (1) GERD (gastroesophageal reflux disease) (2) HTN (hypertension) (3) Scrotal infection Surgical Problems: (1) Hx of gastric bypass Family History Patient reports no known family medical history. Social History Smoking Status: Never Smoker Drug Use: none Marital Status: Housing Status: lives with significant other Occupation Status: employed Allergies Coded Allergies: Amoxicillin (Verified Allergy, Unknown, RASH, 12/03/16) Current Inpatient Medications Current Inpatient Medications Medications (Trade) Dose Ordered Sig/Fela Route Start Time Stop Time Status Last Admin Dose Admin Ioversol (Optiray 320) 100 ml UD PRN IV 12/13/16 23:15 12/17/16 23:14 Acetaminophen (Tylenol Tab) 650 mg Q4H PRN PO 12/14/16 01:00 01/13/17 00:59 Al Hydrox/Mg Hydrox/Simethicone (Maalox Max Susp) 15 ml Q4H PRN PO 12/14/16 01:00 01/13/17 00:59 Magnesium Hydroxide (Milk Of Magnesia Susp) 30 ml Q6H PRN PO 12/14/16 01:00 01/13/17 00:59 Polyethylene (Miralax Powder Packet) 17 gm DAILY PRN PO 12/14/16 01:30 01/13/17 01:29 Ondansetron HCl (Zofran Inj) 4 mg Q6H PRN IV 12/14/16 01:00 01/13/17 00:59 Vancomycin HCl 1600 mg/Sodium Chloride 532 ml @ 200 mls/hr Q8H IV 12/14/16 10:00 12/24/16 09:59 12/14/16 09:51 200 MLS/HR Aztreonam 1000 mg/ Dextrose 110 ml @ 100 mls/hr Q8H IV 12/14/16 08:00 12/24/16 07:59 12/14/16 15:46 100 MLS/HR Morphine Sulfate (MoRPHine SULFATE INJ) 1 mg Q4 PRN IV 12/14/16 01:30 12/28/16 01:29 Sodium Chloride 1,000 ml @ 100 mls/hr Q10H IV 12/14/16 01:30 01/13/17 01:29 12/14/16 12:16 100 MLS/HR Zolpidem Tartrate (Ambien Tab) 10 mg HSZ PRN PO 12/14/16 22:00 01/13/17 00:59 Multivitamins (Flintstones Complete Tab) 1 tab BID PO 12/14/16 09:00 01/13/17 08:59 12/14/16 07:41 1 TAB Vancomycin HCl (Consult) 1 ea UD PRN N/A 12/14/16 01:30 01/13/17 01:29 Acetaminophen/ Hydrocodone Bitart ([place] 7.5/325 Tab) 1 tab [id number] PRN PO 12/14/16 04:30 12/28/16 04:29 Review of Systems All systems were reviewed and are negative except as per HPI Physical Exam Date Time Temp Pulse Resp B/P (MAP) Pulse Ox O2 Delivery O2 Flow Rate FiO2 12/14/16 15:01 36.8 55 16 96/58 (71) 99 Room Air 12/14/16 11:18 36.5 53 17 90/51 (64) 100 Room Air 12/14/16 08:12 36.5 50 16 95/58 (70) 100 Nasal Cannula 2.0 12/14/16 07:40 Room Air 12/14/16 07:11 36.5 51 14 94/56 (69) 99 Nasal Cannula 2.0 12/14/16 07:05 36.5 53 15 96/60 (72) 99 Nasal Cannula 2.0 12/14/16 06:14 36.6 56 12 93/54 (67) 99 Nasal Cannula 2.0 12/14/16 05:35 36.6 64 14 92/54 (67) 98 Nasal Cannula 2.0 12/14/16 05:05 97 Nasal Cannula 2.0 12/14/16 05:05 36.9 73 16 98/58 97 Nasal Cannula 2.0 12/14/16 04:45 37.1 74 12 102/61 99 Nasal Cannula 2 12/14/16 04:35 77 12 103/56 99 Nasal Cannula 2 12/14/16 04:25 83 12 107/57 100 Mask 10 12/14/16 04:19 37.1 85 12 124/66 100 Mask 10 12/14/16 02:30 37.9 78 18 105/59 98 12/14/16 01:07 79 18 102/59 97 Room Air 12/14/16 01:04 80 12/14/16 00:24 81 20 92/51 95 Room Air 12/13/16 22:39 37.9 98 20 115/70 98 Room Air General Appearance: WD/WN, no apparent distress Head: normocephalic, atraumatic Eyes: normal inspection, EOMI, sclerae normal ENT: normal ENT inspection, hearing grossly normal, pharynx normal Neck: supple, no adenopathy, thyroid normal, trachea midline Respiratory/Chest: chest non-tender, lungs clear, normal breath sounds, no respiratory distress Cardiovascular: regular rate, rhythm, no gallop, no murmur Abdomen/GI: normal bowel sounds, non tender, soft, no organomegaly Genitourinary - Male: + pertinent finding (Fuentes catheter in place, surgical dressing intact) Back: normal inspection, no CVA tenderness Extremities/Musculoskelatal: no calf tenderness, normal capillary refill Neurologic/Psych: alert, normal mood/affect, oriented x 3 Skin: normal color, no rash Lymphatic: no adenopathy Laboratory Results Date/Time Source Procedure Growth Status 12/13/16 23:33 Blood Blood Culture Pending Received 12/13/16 23:23 Blood Blood Culture Pending Received 12/14/16 03:04 Abscess Scrotum Gram Stain - Final Resulted 12/14/16 03:04 Abscess Scrotum Bacterial Culture Pending Resulted Last 24 Hours Test 12/13/16 23:23 12/13/16 23:25 12/13/16 23:31 12/14/16 00:20 White Blood Count 14.33 K/uL Red Blood Count 3.31 M/uL Hemoglobin 8.5 g/dL Hematocrit 27.1 % Mean Corpuscular Volume 81.9 fL Mean Corpuscular Hemoglobin 25.7 pg Mean Corpuscular Hemoglobin Concent 31.4 g/dl Platelet Count 268 K/uL Mean Platelet Volume 9.0 fL Neutrophils (%) (Auto) 85.2 % Lymphocytes (%) (Auto) 6.5 % Monocytes (%) (Auto) 7.9 % Eosinophils (%) (Auto) 0.0 % Basophils (%) (Auto) 0.1 % Neutrophils # (Auto) 12.21 K/uL Lymphocytes # (Auto) 0.93 K/uL Monocytes # (Auto) 1.13 K/uL Eosinophils # (Auto) 0.00 K/uL Basophils # (Auto) 0.02 K/uL RDW Standard Deviation 39.6 fL RDW Coefficient of Variation 13.0 % Immature Granulocyte % (Auto) 0.3 % Immature Granulocyte # (Auto) 0.04 K/uL Red Blood Cell Morphology Unremarkable Prothrombin Time 13.9 SECONDS Prothromb Time International Ratio 1.3 Activated Partial Thromboplast Time 36.8 SECONDS Partial Thromboplastin Ratio 1.4 Sodium Level 136 mmol/L Potassium Level 4.0 mmol/L Chloride Level 101 mmol/L Carbon Dioxide Level 25 mmol/L Anion Gap 10.0 mmol/L 18.0 mmol/L Blood Urea Nitrogen 13 mg/dl Creatinine 0.68 mg/dl Est Creatinine Clear Calc Drug Dose 141.1 ml/min Estimated GFR () 123.7 Estimated GFR (Non- 106.8 BUN/Creatinine Ratio 19.5 Random Glucose 92 mg/dl Calcium Level 7.6 mg/dl Total Bilirubin 1.6 mg/dl Aspartate Amino Transf (AST/SGOT) 26 U/L Alanine Aminotransferase (ALT/SGPT) 29 U/L Alkaline Phosphatase 102 U/L Total Protein 6.9 gm/dl Albumin 2.6 gm/dl Globulin 4.3 gm/dl Albumin/Globulin Ratio 0.6 Procalcitonin 0.20 ng/ml Bedside Lactic Acid Venous 0.91 mmol/L Bedside Hemoglobin 13.3 g/dl Bedside Hematocrit 39 % Bedside Sodium 133 mEq/L Bedside Potassium 4.1 mEq/L Bedside Chloride 98 mEq/L Bedside Total CO2 23 mEq/l Bedside Blood Urea Nitrogen 14 mg/dl Bedside Creatinine 0.7 mg/dl Bedside Glucose (other) 99 mg/dl Bedside Ionized Calcium (Karen) 1.02 mmol/l Urine Color DK YELLOW Urine Appearance CLEAR Urine pH 7.0 Urine Specific [place] > 1.045 Urine Protein 1+ Urine Glucose (UA) NEG Urine Ketones NEG Urine Occult Blood NEG Urine Nitrite NEG Urine Bilirubin NEG Urine Urobilinogen NEG Urine Leukocyte Esterase NEG Urine WBC (Auto) 1-5 /hpf Urine RBC (Auto) 5-10 /hpf Urine Hyaline Casts (Auto) 1-5 /lpf Urine Epithelial Cells (Auto) >30 /lpf Urine Bacteria (Auto) NEG Test 12/14/16 04:46 12/14/16 06:50 Bedside Glucose 107 mg/dl White Blood Count 16.01 K/uL Red Blood Count 3.06 M/uL Hemoglobin 8.0 g/dL Hematocrit 25.5 % Mean Corpuscular Volume 83.3 fL Mean Corpuscular Hemoglobin 26.1 pg Mean Corpuscular Hemoglobin Concent 31.4 g/dl RDW Standard Deviation 40.1 fL RDW Coefficient of Variation 13.2 % Platelet Count 216 K/uL Mean Platelet Volume 9.3 fL Sodium Level 140 mmol/L Potassium Level 3.6 mmol/L Chloride Level 106 mmol/L Carbon Dioxide Level 23 mmol/L Anion Gap 11.0 mmol/L Blood Urea Nitrogen 14 mg/dl Creatinine 0.63 mg/dl Est Creatinine Clear Calc Drug Dose 152.3 ml/min Estimated GFR () 127.7 Estimated GFR (Non- 110.2 BUN/Creatinine Ratio 21.9 Random Glucose 83 mg/dl Calcium Level 7.7 mg/dl Hepatitis C Antibody Screen NEG Patient Name: LUDWIN CORRALES Unit Number: [id number] Dictated: 12/14/16657 Transcribed: 12/14/16657 NELIA Printed Date/Time: [~ rep prt dt]/[~ rep prt tm] [~ rep ct labl] - [~ rep ct ivnm] [facility] [place] [address] Dictated: 12/14/16657 Transcribed: 12/14/16657 NELIA Printed Date/Time: [~ rep prt dt]/[~ rep prt tm] [~ rep ct labl] - [~ rep ct ivnm] CT OF THE PELVIS WITH CONTRAST CT DOSE: 382.21 mGy.cm CLINICAL HISTORY: Fever. Recent surgery for hydrocele on December 03, 2016. TECHNIQUE: Axial images of the pelvis were obtained following intravenous injection of 93 cc Optiray 320 IV. COMPARISON STUDY: CT of the abdomen and pelvis November 03, 2016 and testicular ultrasound November 22, 2016. FINDINGS: Note is made of a large mixed attenuation fluid and gas containing collection within the left hemiscrotum that measures 15 x 15 x 10.4 cm. This has multiple areas of increased attenuation as well as multiple locules of gas, more than expected at this time point following surgery. There is moderate adjacent infiltration. Prominent inguinal lymph nodes are likely reactive. No additional fluid collections are identified on this exam. Visualized portions of the abdomen are unremarkable. Skeletal structures are unremarkable. IMPRESSION: Large complex mixed attenuation left hemiscrotum fluid collection, measuring approximately 15 x 15 x 10.4 cm. Gas within this collection could be postsurgical although is more than expected and favors an infectious process. Areas of increased attenuation suggest hemorrhage. Moderate adjacent infiltration. Overall, the findings are suggestive of an infectious process with possible infected hematoma. Electronically signed by: Blade Osborne M.D. 12/14/2016 7:06 AM Dictated Date/Time: 12/14/2016 6:58 AM The status of this report is Signed. Draft = Not yet reviewed or approved by Radiologist. Signed = Reviewed and approved by Radiologist. <AttendingPhy>Cabrera Fuller MD</AttendingPhy> <FamilyPhy>Michael Maza M.D. (KIRSTEN)</FamilyPhy> <PrimaryPhy>Michael Maza M.D. (KIRSTEN)</ PrimaryPhy> <UnitNumber>[id number]</UnitNumber> <VisitNumber>[id number]</ VisitNumber> <PatientName>LUDWIN CORRALES</PatientName> <DateOfBirth>1960< /DateOfBirth> <Location>C.MSN</Location> <ServiceDate>12/13/16</ServiceDate> < MNE>ESINDI</MNE> <OrderingPhy>Mansi Livingston PA-C</OrderingPhy> < OrderingPhyMNE>f rep ord dr sow</OrderingPhyMNE> <DictatingPhyMNE>f rep dict dr sow</DictatingPhyMNE> <CCListMNE>f rep ct melodye</CCListMNE> <AdmittingPhyMNE>f pt admit dr sow</AdmittingPhyMNE> <AttendingPhyMNE>f pt attend dr sow</ AttendingPhyMNE> <ConsultingPhyMNE>f pt consult dr sow</ConsultingPhyMNE> <FamilyPhyMNE>f pt fam dr sow</FamilyPhyMNE> <OtherPhyMNE>f pt other dr sow</OtherPhyMNE> < PrimaryPhyMNE>f pt prim care dr sow</PrimaryPhyMNE> <ReferringPhyMNE>f pt referring dr sow</ReferringPhyMNE> Assessment & Plan Scrotal abscess following repair of hydrocele, now status post surgical drainage , with polymicrobial infection suggested by Gram stain. I have added metronidazole to provide anaerobic coverage, and will await final culture results to adjust antibiotics accordingly. Will follow.
--- NOTE | 2016-12-14 18:35 | Progress Note ---
Internal Med Progress Note Date of Service: Dec 14, 2016. Provider Documentation: resting comfortably. Denies pain. eating fine. Afebrile. Exam: General-alert and awake. Not in distress ENT-Normal hearing Neck-no neck masses, supple Lungs-cta b/l no wheezing or crackles Heart-s1 and s2 heard regular , no murmurs Abdomen-soft bowel sounds present non tender no distension Extremities- no edema present no erythema Neuro-alert and awake moves extremities ASSESSMENT & PLAN: SCROTAL ABSCESS/Hematoma: s/p recent Left hydrocele surgery approx 10 days back ( surgery on 12/03/16 ) presented with fever , worsening of pain , swelling , drainage at scrotal area CT abdomen pelvis suggestive of scrotal abscess /hematoma s/p emergent drainage by urology On IV Abx with vancomycin /Azactam ( pt is allergic to PCN ) ID on board await cx RECENT LEFT HYDROCELECTOMY : possible post op complication as above Urology consulted DVT PROPHYLAXIS scds DISPOSITION to be determined Vital Signs: Date Time Temp Pulse Resp B/P (MAP) Pulse Ox O2 Delivery O2 Flow Rate FiO2 12/14/16 15:45 Room Air 12/14/16 15:01 36.8 55 16 96/58 (71) 99 Room Air 12/14/16 11:18 36.5 53 17 90/51 (64) 100 Room Air 12/14/16 08:12 36.5 50 16 95/58 (70) 100 Nasal Cannula 2.0 12/14/16 07:40 Room Air 12/14/16 07:11 36.5 51 14 94/56 (69) 99 Nasal Cannula 2.0 12/14/16 07:05 36.5 53 15 96/60 (72) 99 Nasal Cannula 2.0 12/14/16 06:14 36.6 56 12 93/54 (67) 99 Nasal Cannula 2.0 12/14/16 05:35 36.6 64 14 92/54 (67) 98 Nasal Cannula 2.0 12/14/16 05:05 97 Nasal Cannula 2.0 12/14/16 05:05 36.9 73 16 98/58 97 Nasal Cannula 2.0 12/14/16 04:45 37.1 74 12 102/61 99 Nasal Cannula 2 12/14/16 04:35 77 12 103/56 99 Nasal Cannula 2 12/14/16 04:25 83 12 107/57 100 Mask 10 12/14/16 04:19 37.1 85 12 124/66 100 Mask 10 12/14/16 02:30 37.9 78 18 105/59 98 12/14/16 01:07 79 18 102/59 97 Room Air 12/14/16 01:04 80 12/14/16 00:24 81 20 92/51 95 Room Air 12/13/16 22:39 37.9 98 20 115/70 98 Room Air Lab Results: Results Past 24 Hours Test 12/13/16 23:23 12/13/16 23:25 12/13/16 23:31 12/14/16 00:20 Range/Units White Blood Count 14.33 4.8-10.8 K/uL Red Blood Count 3.31 4.7-6.1 M/uL Hemoglobin 8.5 14.0-18.0 g/dL Hematocrit 27.1 42-52 % Mean Corpuscular Volume 81.9 80-100 fL Mean Corpuscular Hemoglobin 25.7 25-34 pg Mean Corpuscular Hemoglobin Concent 31.4 32-36 g/dl Platelet Count 268 130-400 K/uL Mean Platelet Volume 9.0 7.4-10.4 fL Neutrophils (%) (Auto) 85.2 % Lymphocytes (%) (Auto) 6.5 % Monocytes (%) (Auto) 7.9 % Eosinophils (%) (Auto) 0.0 % Basophils (%) (Auto) 0.1 % Neutrophils # (Auto) 12.21 1.4-6.5 K/uL Lymphocytes # (Auto) 0.93 1.2-3.4 K/uL Monocytes # (Auto) 1.13 0.11-0.59 K/uL Eosinophils # (Auto) 0.00 0-0.5 K/uL Basophils # (Auto) 0.02 0-0.2 K/uL RDW Standard Deviation 39.6 36.4-46.3 fL RDW Coefficient of Variation 13.0 11.5-14.5 % Immature Granulocyte % (Auto) 0.3 % Immature Granulocyte # (Auto) 0.04 0.00-0.02 K/uL Red Blood Cell Morphology Unremarkable Prothrombin Time 13.9 9.0-12.0 SECONDS Prothromb Time International Ratio 1.3 0.9-1.1 Activated Partial Thromboplast Time 36.8 21.0-31.0 SECONDS Partial Thromboplastin Ratio 1.4 Sodium Level 136 136-145 mmol/L Potassium Level 4.0 3.5-5.1 mmol/L Chloride Level 101 98-107 mmol/L Carbon Dioxide Level 25 21-32 mmol/L Anion Gap 10.0 18.0 16-25 mmol/L Blood Urea Nitrogen 13 7-18 mg/dl Creatinine 0.68 0.60-1.40 mg/dl Est Creatinine Clear Calc Drug Dose 141.1 ml/min Estimated GFR () 123.7 Estimated GFR (Non- 106.8 BUN/Creatinine Ratio 19.5 10-20 Random Glucose 92 70-99 mg/dl Calcium Level 7.6 8.5-10.1 mg/dl Total Bilirubin 1.6 0.2-1 mg/dl Aspartate Amino Transf (AST/SGOT) 26 15-37 U/L Alanine Aminotransferase (ALT/SGPT) 29 12-78 U/L Alkaline Phosphatase 102 45-117 U/L Total Protein 6.9 6.4-8.2 gm/dl Albumin 2.6 3.4-5.0 gm/dl Globulin 4.3 2.5-4.0 gm/dl Albumin/Globulin Ratio 0.6 0.9-2 Procalcitonin 0.20 0-0.5 ng/ml Bedside Lactic Acid Venous 0.91 0.90-1.70 mmol/L Bedside Hemoglobin 13.3 14.0-18.0 g/dl Bedside Hematocrit 39 42-52 % Bedside Sodium 133 135-144 mEq/L Bedside Potassium 4.1 3.3-5.0 mEq/L Bedside Chloride 98 101-112 mEq/L Bedside Total CO2 23 24-31 mEq/l Bedside Blood Urea Nitrogen 14 7-18 mg/dl Bedside Creatinine 0.7 0.6-1.3 mg/dl Bedside Glucose (other) 99 70-99 mg/dl Bedside Ionized Calcium (Karen) 1.02 1.12-1.32 mmol/l Urine Color DK YELLOW Urine Appearance CLEAR CLEAR Urine pH 7.0 4.5-7.5 Urine Specific [place] > 1.045 1.000-1.030 Urine Protein 1+ NEG Urine Glucose (UA) NEG NEG Urine Ketones NEG NEG Urine Occult Blood NEG NEG Urine Nitrite NEG NEG Urine Bilirubin NEG NEG Urine Urobilinogen NEG NEG Urine Leukocyte Esterase NEG NEG Urine WBC (Auto) 1-5 0-5 /hpf Urine RBC (Auto) 5-10 0-4 /hpf Urine Hyaline Casts (Auto) 1-5 0-5 /lpf Urine Epithelial Cells (Auto) >30 0-5 /lpf Urine Bacteria (Auto) NEG NEG Test 12/14/16 04:46 12/14/16 06:50 Range/Units Bedside Glucose 107 70-99 mg/dl White Blood Count 16.01 4.8-10.8 K/uL Red Blood Count 3.06 4.7-6.1 M/uL Hemoglobin 8.0 14.0-18.0 g/dL Hematocrit 25.5 42-52 % Mean Corpuscular Volume 83.3 80-100 fL Mean Corpuscular Hemoglobin 26.1 25-34 pg Mean Corpuscular Hemoglobin Concent 31.4 32-36 g/dl RDW Standard Deviation 40.1 36.4-46.3 fL RDW Coefficient of Variation 13.2 11.5-14.5 % Platelet Count 216 130-400 K/uL Mean Platelet Volume 9.3 7.4-10.4 fL Sodium Level 140 136-145 mmol/L Potassium Level 3.6 3.5-5.1 mmol/L Chloride Level 106 98-107 mmol/L Carbon Dioxide Level 23 21-32 mmol/L Anion Gap 11.0 3-11 mmol/L Blood Urea Nitrogen 14 7-18 mg/dl Creatinine 0.63 0.60-1.40 mg/dl Est Creatinine Clear Calc Drug Dose 152.3 ml/min Estimated GFR () 127.7 Estimated GFR (Non- 110.2 BUN/Creatinine Ratio 21.9 10-20 Random Glucose 83 70-99 mg/dl Calcium Level 7.7 8.5-10.1 mg/dl Hepatitis C Antibody Screen NEG NEG Microbiology Results 12/13/16 Blood Culture, Received Pending 12/13/16 Blood Culture, Received Pending 12/14/16 Gram Stain - Final, Resulted 12/14/16 Bacterial Culture, Resulted Pending
[2016-12-14] MEDS ORDERED: ZOLPIDEM TARTRATE 10 MG TAB PO PRN (22:00)
[2016-12-15] VITALS (15 sets, daily range): BP systolic 99–126; BP diastolic 61–75; PULSE 49–58; TEMP 36.3–36.9; O2SAT 96–100
[2016-12-15] MEDS: VANCOMYCIN INJ 1,600 MG in SODIUM CHLORIDE 0.9% 500ML 500 ML IV SCH ×2 (02:16→09:42)
[2016-12-15 06:47] LABS: HEMATOCRIT 23.3 % (42-52); MEAN CELL VOLUME 83.2 fL (80-100); MEAN CORPUSCULAR HEMOGLOBIN 26.8 pg (25-34); MEAN CORPUSCULAR HGB CONC 32.2 g/dl (32-36); MEAN PLATELET VOLUME 9.4 fL (7.4-10.4); PLATELET COUNT 193 K/uL (130-400); WHITE BLOOD COUNT 7.11 K/uL (4.8-10.8)
[2016-12-15 07:29] LABS: BUN/CREATININE RATIO 29.8 (10-20); CALCIUM 7.7 mg/dl (8.5-10.1); CREATININE 0.48 mg/dl (0.60-1.40)
[2016-12-15] MEDS: SODIUM CHLORIDE 0.9% 1000ML 1,000 ML IV SCH (07:31)
[2016-12-15] MEDS: AZTREONAM IV 1,000 MG in DEXTROSE 5% 100ML 100 ML IV SCH ×3 (07:32→23:38)
[2016-12-15] MEDS: FLINTSTONES COMPLETE CHEWABLE TAB PO SCH ×2 (07:32→21:05)
[2016-12-15] MEDS ORDERED: VANCOMYCIN TROUGH SCH (09:30)
--- NOTE | 2016-12-15 10:33 | Pharmacy Progress Note ---
Pharmacy Abx Dose Progress Nt Date of Service Dec 15, 2016. Pharmacy Dosing Scope The patient is currently receiving the following antimicrobial agents: * Vancomycin 1600mg IV every 8 hours * Aztreonam 1000mg IV every 8 hours * Metronidazole 500mg PO TID Objective Height (Feet): 6 Height (Inches): 2.00 Weight (Kilograms): 90.910 Vital Signs (Past 12Hrs) Vital Signs Past 12 Hours Date Time Temp Pulse Resp B/P (MAP) Pulse Ox O2 Delivery O2 Flow Rate FiO2 12/15/16 07:25 Room Air 12/15/16 07:08 36.9 53 16 99/61 (74) 96 Room Air 12/15/16 03:06 36.9 53 14 102/63 (76) 99 Room Air 12/14/16 23:30 Room Air 12/14/16 22:56 37.4 64 14 102/62 (75) 98 Room Air Lab Results (24Hrs) Laboratory Tests (24 Hours) Test 12/15/16 06:00 White Blood Count 7.11 K/uL (4.8-10.8) Micro Results Date/Time Source Procedure Growth Status 12/13/16 23:33 Blood Blood Culture - Preliminary NO GROWTH TO DATE. Resulted 12/13/16 23:23 Blood Blood Culture - Preliminary NO GROWTH TO DATE. Resulted 12/14/16 03:04 Abscess Scrotum Gram Stain - Final Resulted 12/14/16 03:04 Bacterial Culture - Preliminary Gram Positive Bacilli Resulted Risk Factors for Resistance * Hospitalization for 48 hours or more within the past 90 days * Antimicrobial use within the last 90 days: * Ciprofloxacin Assessment & Plan Assessment * 56-year-old male who underwent removal of left scrotal hydrocele approximately 10 days ago. * Swelling of the area after surgery, but 3 days ago began to notice progressively worsening pain and swelling along with fever and shaking chills. * He came to the emergency department where he was found to have evidence of a scrotal abscess, and has now undergone surgical drainage. * Gram stain of the fluid shows gram-positive cocci and gram-positive bacilli. * He states that he is feeling much better postoperatively with much less pain , and currently afebrile. * Currently being treated with vancomycin and aztreonam Plan * Continue broad-spectrum antibiotics with vancomycin and aztreonam. Add metronidazole for polymicrobial/anaerobic coverage per ID recommendations Vancomycin IV * Trough level of 14.7 mcg/mL is near-therapeutic * though close to goal, will increase daily dose as to achieve therapeutic concentrations at the site of infection * Change to vancomycin 1500 mg IV every 6 hours * Goal trough level for abscess: 15 to 20 mcg/mL * Trough level ordered for: 12/16/16 prior to 16:00 dose Aztreonam IV (not a pharmacy consult) * Continue 1000mg IV every 8 hours Metronidazole PO (not a pharmacy consult) * Continue 500mg PO TID Pharmacy will continue to follow and will adjust dose/frequency as necessary. Thank you.
[2016-12-15] MEDS ORDERED: FUROSEMIDE INJ 20 MG in SYRINGE 0 ML IV SCH (14:00)
[2016-12-15] MEDS ORDERED: ACETAMINOPHEN 325 MG TAB PO SCH (14:00)
--- NOTE | 2016-12-15 14:02 | Progress Note ---
Subjective Date of Service: Dec 15, 2016. Subjective Pt evaluation today including: conversation w/ patient, physical exam, chart review, lab review, conversation w/ organization development consultant Pain: pt took 1 pain pill today Voiding: rojas catheter in place removed catheter today pt had not been oob Problem List Medical Problems: (1) Acute cholecystitis Status: Acute (2) Fever Status: Acute Objective Vital Signs Date Time Temp Pulse Resp B/P (MAP) Pulse Ox O2 Delivery O2 Flow Rate FiO2 12/15/16 07:25 Room Air 12/15/16 07:08 36.9 53 16 99/61 (74) 96 Room Air 12/15/16 03:06 36.9 53 14 102/63 (76) 99 Room Air 12/14/16 23:30 Room Air 12/14/16 22:56 37.4 64 14 102/62 (75) 98 Room Air 12/14/16 19:15 36.6 67 18 101/62 (75) 99 Room Air 12/14/16 15:45 Room Air 12/14/16 15:01 36.8 55 16 96/58 (71) 99 Room Air Physical Exam Comments: marked decrease in size of left hemiscrotum dressing and bed totally saturated w serosanguinus fluid no erythema of skin joseph and packing intact Laboratory Results Last 24 Hours Test 12/15/16 06:00 12/15/16 09:03 12/15/16 13:35 White Blood Count 7.11 K/uL Red Blood Count 2.80 M/uL Hemoglobin 7.5 g/dL Hematocrit 23.3 % Mean Corpuscular Volume 83.2 fL Mean Corpuscular Hemoglobin 26.8 pg Mean Corpuscular Hemoglobin Concent 32.2 g/dl RDW Standard Deviation 40.3 fL RDW Coefficient of Variation 13.1 % Platelet Count 193 K/uL Mean Platelet Volume 9.4 fL Sodium Level 139 mmol/L Potassium Level 4.0 mmol/L Chloride Level 107 mmol/L Carbon Dioxide Level 24 mmol/L Anion Gap 8.0 mmol/L Blood Urea Nitrogen 14 mg/dl Creatinine 0.48 mg/dl Est Creatinine Clear Calc Drug Dose 199.9 ml/min Estimated GFR () 142.8 Estimated GFR (Non- 123.2 BUN/Creatinine Ratio 29.8 Random Glucose 73 mg/dl Calcium Level 7.7 mg/dl Vancomycin Level Trough 14.7 mcg/ml Transferrin % Saturation % Assessment and Plan discussed anemia and iv with hospitalist and will adjust with rojas out pt needs nutrition consult as he is anemic and has lost weight since gastric bypass surgery remove packing in am then remove joseph and repack in am consult wound clinic awaiting identification of gram positive lara and sensitivities appreciate ID input overall significant improvement in wound appearance with nl wbc and afebrile pt weak may need physical therapy
[2016-12-15] MEDS: METRONIDAZOLE 500 MG TAB PO SCH ×2 (14:30→21:05)
[2016-12-15] MEDS: VANCOMYCIN INJ 1,500 MG in SODIUM CHLORIDE 0.9% 500ML 500 ML IV SCH ×2 (17:25→21:56)
--- NOTE | 2016-12-15 18:14 | Progress Note ---
Internal Med Progress Note Date of Service: Dec 15, 2016. Provider Documentation: sitting on the chair comfortably has pain at procedure. afebrile no sob eating ok Exam: General-alert and awake. Not in distress ENT-Normal hearing Neck-no neck masses, supple Lungs-cta b/l no wheezing or crackles Heart-s1 and s2 heard regular , no murmurs Abdomen-soft bowel sounds present non tender no distension Extremities- no edema present no erythema Neuro-alert and awake moves extremities ASSESSMENT & PLAN: 56 y m with SCROTAL ABSCESS/Hematoma from recent hydrocele surgery s/p emergent evacuation. On iv abx. ID and urology on board. Wound care consult. Developed anemia. Hemoccult positive. Transfusing two units prbc. Hx of gastric by pass. f/u iron and vitamin studies. GI consulted for am. SCROTAL ABSCESS/Hematoma: s/p recent Left hydrocele surgery approx 10 days back ( surgery on 12/03/16 ) presented with fever , worsening of pain , swelling , drainage at scrotal area CT abdomen pelvis suggestive of scrotal abscess /hematoma s/p emergent drainage by urology On IV Abx with vancomycin /Azactam ( pt is allergic to PCN ) ID on board and added po Flagyl wound care consult in am await cx RECENT LEFT HYDROCELECTOMY : possible post op complication as above Urology consulted Anemia acute on chronic? hx of gastric bypass will do iron studies vitamin b12 and folacic acid levels transfuse two units today Hemoccult came back positive start on ppi bid consult GI in am. DVT PROPHYLAXIS scds DISPOSITION to be determined Vital Signs: Date Time Temp Pulse Resp B/P (MAP) Pulse Ox O2 Delivery O2 Flow Rate FiO2 12/15/16 20:45 36.8 55 16 116/69 98 12/15/16 20:28 36.7 58 18 116/69 99 0.0 12/15/16 19:28 36.7 53 16 118/72 100 12/15/16 18:55 36.5 55 18 116/72 100 12/15/16 17:55 36.3 50 18 119/75 100 12/15/16 17:25 36.4 49 18 118/72 100 12/15/16 17:11 36.4 53 18 125/73 100 12/15/16 16:51 36.5 49 18 111/67 99 0.0 12/15/16 15:45 Room Air 12/15/16 14:52 54 16 120/73 (89) 100 12/15/16 07:25 Room Air 12/15/16 07:08 36.9 53 16 99/61 (74) 96 Room Air 12/15/16 03:06 36.9 53 14 102/63 (76) 99 Room Air 12/14/16 23:30 Room Air 12/14/16 22:56 37.4 64 14 102/62 (75) 98 Room Air Lab Results: Results Past 24 Hours Test 12/15/16 06:00 12/15/16 09:03 12/15/16 14:26 12/15/16 15:35 Range/Units White Blood Count 7.11 4.8-10.8 K/uL Red Blood Count 2.80 4.7-6.1 M/uL Hemoglobin 7.5 14.0-18.0 g/dL Hematocrit 23.3 42-52 % Mean Corpuscular Volume 83.2 80-100 fL Mean Corpuscular Hemoglobin 26.8 25-34 pg Mean Corpuscular Hemoglobin Concent 32.2 32-36 g/dl RDW Standard Deviation 40.3 36.4-46.3 fL RDW Coefficient of Variation 13.1 11.5-14.5 % Platelet Count 193 130-400 K/uL Mean Platelet Volume 9.4 7.4-10.4 fL Sodium Level 139 136-145 mmol/L Potassium Level 4.0 3.5-5.1 mmol/L Chloride Level 107 98-107 mmol/L Carbon Dioxide Level 24 21-32 mmol/L Anion Gap 8.0 3-11 mmol/L Blood Urea Nitrogen 14 7-18 mg/dl Creatinine 0.48 0.60-1.40 mg/dl Est Creatinine Clear Calc Drug Dose 199.9 ml/min Estimated GFR () 142.8 Estimated GFR (Non- 123.2 BUN/Creatinine Ratio 29.8 10-20 Random Glucose 73 70-99 mg/dl Calcium Level 7.7 8.5-10.1 mg/dl Vancomycin Level Trough 14.7 SEE COMMENT mcg/ml Iron Level 11 35-175 mcg/dl Total Iron Binding Capacity 166 250-450 mcg/dl Transferrin 129 200-360 mg/dl Transferrin % Saturation 6 20-50 % Ferritin 146.0 8.0-388.0 ng/ml Stool Occult Blood POSITIVE NEGATIVE
[2016-12-15] MEDS: PANTOprazole SOD 40 MG TAB PO SCH (21:05)
[2016-12-16] MEDS: VANCOMYCIN INJ 1,500 MG in SODIUM CHLORIDE 0.9% 500ML 500 ML IV SCH ×3 (03:40→16:09)
[2016-12-16 06:11] LABS: HEMATOCRIT 29.2 % (42-52); MEAN CELL VOLUME 83.2 fL (80-100); MEAN CORPUSCULAR HEMOGLOBIN 26.8 pg (25-34); MEAN CORPUSCULAR HGB CONC 32.2 g/dl (32-36); MEAN PLATELET VOLUME 9.6 fL (7.4-10.4); PLATELET COUNT 194 K/uL (130-400); RED BLOOD COUNT 3.51 M/uL (4.7-6.1); WHITE BLOOD COUNT 6.13 K/uL (4.8-10.8)
[2016-12-16 06:43] LABS: BUN/CREATININE RATIO 23.6 (10-20); CALCIUM 7.9 mg/dl (8.5-10.1); CREATININE 0.53 mg/dl (0.60-1.40); POTASSIUM 3.6 mmol/L (3.5-5.1)
[2016-12-16 07:07] VITALS: BP 118/60; PULSE 54; TEMP 36.5; O2SAT 98
--- NOTE | 2016-12-16 07:19 | Progress Note ---
Subjective Date of Service: Dec 16, 2016. (Bell Giron CRNP) Subjective Pt evaluation today including: conversation w/ patient, chart review, lab review Voiding: no voiding problems 56 yo male s/p I&D of scrotal hematoma. Pt denies pain this morning. Reports scrotal swelling has improved. The pt denies any difficulty voiding. Denies dysuria or hematuria. Wound culture with rare gram positive bacilli. ID consulted. Wound care has been consulted for wound packing changes. H&H stable at 9.4 and 29.2 this morning. He received 2 units of PRBCs yesterday. (Bell Giron CRNP) Problem List Medical Problems: (1) Acute cholecystitis Status: Acute (2) Fever Status: Acute (Bell Giron CRNP) Review of Systems Constitutional: No fever, No chills Respiratory: No shortness of breath Cardiac: No chest pain Abdomen: No pain, No nausea, No vomiting Male : No dysuria, No hematuria Heme: No abnormal bleeding/bruising (Bell Giron CRNP) Objective Vital Signs Date Time Temp Pulse Resp B/P (MAP) Pulse Ox O2 Delivery O2 Flow Rate FiO2 12/16/16 07:07 36.5 54 18 118/60 (79) 98 Room Air 12/15/16 23:30 Room Air 12/15/16 23:30 36.7 56 16 123/73 99 12/15/16 22:30 36.6 52 16 115/70 100 12/15/16 21:31 36.5 50 16 126/72 100 12/15/16 21:00 36.7 53 16 116/70 98 12/15/16 20:45 36.8 55 16 116/69 98 12/15/16 20:28 36.7 58 18 116/69 99 0.0 12/15/16 19:28 36.7 53 16 118/72 100 12/15/16 18:55 36.5 55 18 116/72 100 12/15/16 17:55 36.3 50 18 119/75 100 12/15/16 17:25 36.4 49 18 118/72 100 12/15/16 17:11 36.4 53 18 125/73 100 12/15/16 16:51 36.5 49 18 111/67 99 0.0 12/15/16 15:45 Room Air 12/15/16 14:52 54 16 120/73 (89) 100 12/15/16 07:25 Room Air (Bell Giron CRNP) Physical Exam General Appearance: no apparent distress Eyes: normal inspection ENT: hearing grossly normal Neck: no JVD Respiratory/Chest: no respiratory distress, no accessory muscle use Cardiovascular: no JVD Extremities: normal inspection Neurologic/Psychiatric: alert, normal mood/affect, oriented x 3 Skin: normal color Comments: Scrotal swelling noted. Scrotal wound packing in place with serosanguinous drainage noted around packing. Jessica drain in place as well. (Bell Giron CRNP) Laboratory Results Last 24 Hours Test 12/15/16 09:03 12/15/16 14:26 12/15/16 15:35 12/16/16 05:42 Vancomycin Level Trough 14.7 mcg/ml Iron Level 11 mcg/dl Total Iron Binding Capacity 166 mcg/dl Transferrin 129 mg/dl Transferrin % Saturation 6 % Ferritin 146.0 ng/ml Stool Occult Blood POSITIVE Sodium Level 142 mmol/L Potassium Level 3.6 mmol/L Chloride Level 108 mmol/L Carbon Dioxide Level 25 mmol/L Anion Gap 9.0 mmol/L Blood Urea Nitrogen 13 mg/dl Creatinine 0.53 mg/dl Est Creatinine Clear Calc Drug Dose 181.0 ml/min Estimated GFR () 137.1 Estimated GFR (Non- 118.3 BUN/Creatinine Ratio 23.6 Random Glucose 84 mg/dl Calcium Level 7.9 mg/dl Test 12/16/16 05:46 White Blood Count 6.13 K/uL Red Blood Count 3.51 M/uL Hemoglobin 9.4 g/dL Hematocrit 29.2 % Mean Corpuscular Volume 83.2 fL Mean Corpuscular Hemoglobin 26.8 pg Mean Corpuscular Hemoglobin Concent 32.2 g/dl RDW Standard Deviation 41.0 fL RDW Coefficient of Variation 13.5 % Platelet Count 194 K/uL Mean Platelet Volume 9.6 fL (Bell Giron CRNP) Assessment and Plan POD #2 s/p I&D scrotal hematoma. AFVSS. Management of abx per ID. Management of anemia per hospitalist. Scrotal hematoma may have contributed. Recommend f/u with PCP and repeat labs in 2 weeks. Wound care consult today. Will allow wound care to change packing daily. Can f/ u with them as an outpatient or arrange for home health to change packing per their preference. May d/c Jessica drain today or tomorrow per wound care preference as well. Pt OK for d/c from standpoint. He is scheduled to f/u with Dr. Lewis next week on 12-23. Will keep appt as scheduled. Will continue to follow along with primary service if the pt remains inpatient. Discharge planning: home with home health (Bell Giron CRNP)
[2016-12-16] MEDS: AZTREONAM IV 1,000 MG in DEXTROSE 5% 100ML 100 ML IV SCH ×3 (07:22→23:25)
[2016-12-16] MEDS: PANTOprazole SOD 40 MG TAB PO SCH ×2 (08:24→20:56)
[2016-12-16] MEDS: METRONIDAZOLE 500 MG TAB PO SCH ×3 (08:24→20:55)
[2016-12-16] MEDS: FLINTSTONES COMPLETE CHEWABLE TAB PO SCH ×2 (08:24→20:55)
--- NOTE | 2016-12-16 10:06 | Infectious Disease Progress Nt ---
Progress Note Date of Service Dec 16, 2016. Subjective Pt evaluation today including: conversation w/ patient, physical exam, chart review, lab review, review of studies, conversation w/ lean consultant, review of inpatient medication list No new complaints. Pain improved. No fever. Tolerating Abx. All Other Systems: Reviewed and Negative Medications Current Inpatient Medications Medications (Trade) Dose Ordered Sig/Fela Route Start Time Stop Time Status Last Admin Dose Admin Ioversol (Optiray 320) 100 ml UD PRN IV 12/13/16 23:15 12/17/16 23:14 Acetaminophen (Tylenol Tab) 650 mg Q4H PRN PO 12/14/16 01:00 01/13/17 00:59 Al Hydrox/Mg Hydrox/Simethicone (Maalox Max Susp) 15 ml Q4H PRN PO 12/14/16 01:00 01/13/17 00:59 Magnesium Hydroxide (Milk Of Magnesia Susp) 30 ml Q6H PRN PO 12/14/16 01:00 01/13/17 00:59 Polyethylene (Miralax Powder Packet) 17 gm DAILY PRN PO 12/14/16 01:30 01/13/17 01:29 Ondansetron HCl (Zofran Inj) 4 mg Q6H PRN IV 12/14/16 01:00 01/13/17 00:59 Aztreonam 1000 mg/ Dextrose 110 ml @ 100 mls/hr Q8H IV 12/14/16 08:00 12/24/16 07:59 12/16/16 07:22 100 MLS/HR Morphine Sulfate (MoRPHine SULFATE INJ) 1 mg Q4 PRN IV 12/14/16 01:30 12/28/16 01:29 Zolpidem Tartrate (Ambien Tab) 10 mg HSZ PRN PO 12/14/16 22:00 01/13/17 00:59 Multivitamins (Flintstones Complete Tab) 1 tab BID PO 12/14/16 09:00 01/13/17 08:59 12/16/16 08:24 1 TAB Vancomycin HCl (Consult) 1 ea UD PRN N/A 12/14/16 01:30 01/13/17 01:29 Acetaminophen/ Hydrocodone Bitart (Red Bud 7.5/325 Tab) 1 tab [id number] PRN PO 12/14/16 04:30 12/28/16 04:29 12/14/16 23:42 1 TAB Vancomycin HCl 1500 mg/Sodium Chloride 530 ml @ 200 mls/hr Q6H IV 12/15/16 16:00 12/24/16 09:59 12/16/16 03:40 200 MLS/HR Metronidazole (Flagyl Tab) 500 mg TID PO 12/15/16 14:00 12/25/16 13:59 12/16/16 08:24 500 MG Pantoprazole Sodium (Protonix Tab) 40 mg BID PO 12/15/16 21:00 01/14/17 20:59 12/16/16 08:24 40 MG Objective Vital Signs Date Time Temp Pulse Resp B/P (MAP) Pulse Ox O2 Delivery O2 Flow Rate FiO2 12/16/16 07:48 Room Air 12/16/16 07:07 36.5 54 18 118/60 (79) 98 Room Air 12/15/16 23:30 Room Air 12/15/16 23:30 36.7 56 16 123/73 99 12/15/16 22:30 36.6 52 16 115/70 100 12/15/16 21:31 36.5 50 16 126/72 100 12/15/16 21:00 36.7 53 16 116/70 98 12/15/16 20:45 36.8 55 16 116/69 98 12/15/16 20:28 36.7 58 18 116/69 99 0.0 12/15/16 19:28 36.7 53 16 118/72 100 12/15/16 18:55 36.5 55 18 116/72 100 12/15/16 17:55 36.3 50 18 119/75 100 12/15/16 17:25 36.4 49 18 118/72 100 12/15/16 17:11 36.4 53 18 125/73 100 12/15/16 16:51 36.5 49 18 111/67 99 0.0 12/15/16 15:45 Room Air 12/15/16 14:52 54 16 120/73 (89) 100 Physical Exam General Appearance: WD/WN, no apparent distress Eyes: normal inspection, sclerae normal ENT: normal ENT inspection, pharynx normal Neck: supple, no adenopathy, trachea midline Respiratory/Chest: chest non-tender, lungs clear, normal breath sounds, no respiratory distress Cardiovascular: regular rate, rhythm, no gallop, no murmur Abdomen: normal bowel sounds, non tender, soft, no organomegaly Extremities: non-tender, no calf tenderness Neurologic/Psychiatric: alert, oriented x 3 Skin: normal color, no rash Lymphatic: no adenopathy Laboratory Results RUN DATE: 12/15/16 [facility] LAB PAGE 1 RUN TIME: 1111 Specimen Inquiry PATIENT: LUDWIN CORRALES [id number] AGE/SX: 56/M ROOM: [facility] REG : 12/14/[address]: Cabrera Fuller MD : [id number] BED: 2 DIS : STATUS: ADM IN TLOC: SPEC #: [id number] COY: 12/14/16-303 STATUS: RES REQ #: [id number] RECD: 12/14/16-[address]: Cabrera Fuller MD SOURCE: ABSCESS ENTR: 12/14/[address]: Curt Daugherty [facility] Michael Maza M.D. [facility] M.D. Pervez, Ayesha H., M.D. Ramondelli, Salvatore, M.D. Yingling, Christopher T. M.D. ORDERED: AER/PILAR CULTSMR Procedure Result Verified Site GRAM STAIN Final 12/14/16-1455 RESULT FEW WBCs SEEN MODERATE GRAM POSITIVE COCCI RARE GRAM POSITIVE BACILLI OR AER/PILAR CULT Preliminary 12/15/16-1111 Organism 1 GRAM POSITIVE BACILLI QUANITY FEW SENS NO SENSITIVITY TO FOLLOW Last 24 Hours Test 12/15/16 14:26 12/15/16 15:35 12/16/16 05:42 12/16/16 05:46 Iron Level 11 mcg/dl Total Iron Binding Capacity 166 mcg/dl Transferrin 129 mg/dl Transferrin % Saturation 6 % Ferritin 146.0 ng/ml Stool Occult Blood POSITIVE Sodium Level 142 mmol/L Potassium Level 3.6 mmol/L Chloride Level 108 mmol/L Carbon Dioxide Level 25 mmol/L Anion Gap 9.0 mmol/L Blood Urea Nitrogen 13 mg/dl Creatinine 0.53 mg/dl Est Creatinine Clear Calc Drug Dose 181.0 ml/min Estimated GFR () 137.1 Estimated GFR (Non- 118.3 BUN/Creatinine Ratio 23.6 Random Glucose 84 mg/dl Calcium Level 7.9 mg/dl Vitamin B12 Level 778 pg/mL Folate 17.69 ng/mL White Blood Count 6.13 K/uL Red Blood Count 3.51 M/uL Hemoglobin 9.4 g/dL Hematocrit 29.2 % Mean Corpuscular Volume 83.2 fL Mean Corpuscular Hemoglobin 26.8 pg Mean Corpuscular Hemoglobin Concent 32.2 g/dl RDW Standard Deviation 41.0 fL RDW Coefficient of Variation 13.5 % Platelet Count 194 K/uL Mean Platelet Volume 9.6 fL Assessment and Plan Scrotal abscess following repair of hydrocele, now status post surgical drainage , with polymicrobial infection suggested by Gram stain. Patient to continue on present Abx until final culture results available. Will follow.
--- NOTE | 2016-12-16 11:54 | Gastrointestinal Consultation ---
Gastrointestinal Consultation Date of Consultation: Dec 16, 2016 Attending Physician: Dr. Fuller Consulting Physician: Dr. Rajan Milan Reason for Consultation: Anemia, heme positive stool History of Present Illness Patient is a 56 year old male patient of Dr. Maza with a hx of obesity S/P gastric bypass in September 2015, HTN, GERD. He was admitted on 12/13 for a post surgical (hydrocele surgery) scrotal infection. GI is consulted for anemia and hem positive stool. Mr. Alberto underwent RYGB September 24, [address] Guerra in [place]. At that time , Hb was 13.5. It was checked again on 11/04 and was 10.7. On arrival for this admission on 12/13, it was 8.5. Today, post transfusion of 2 units of RBCs, it is 9.4. He is iron deficient at 11. He received B12 injections every 2 months. His MCV and BUN are normal. He denies any abdominal pain, nausea, vomiting, black stools or blood in stools. He does not smoke and does not take NSAIDs. During this admission for the scrotal infection, stool was testing and is occult positive. He has a hx of undergoing colonoscopy by Dr. Milan on for a hx of colon polyps. The colonoscopy in 2014 was showed internal hemorrhoids and mild sigmoid diverticulosis, no polyps. Past Medical/Surgical History Medical Problems: (1) Acute cholecystitis Status: Acute (2) Fever Status: Acute Past Medical History: 1. HTN 2. GERD 3. Hydrocele 4. Obesity Past Surgical History: 1. Hydrocele surgery 12/03/2016 2. Colonoscopy, see HPI 3. RYGB Dr. Guerra 09/24/15 Family History Patient reports no known family medical history. Social History Smoking Status: Never Smoker Alcohol Use: none Drug Use: none Marital Status: Housing Status: lives with significant other Occupation Status: employed Allergies Coded Allergies: Amoxicillin (Verified Allergy, Unknown, RASH, 12/03/16) Current Medications Home Meds and Scripts Medications Dose Route/Sig Max Daily Dose Days Date Category Ambien (Zolpidem Tartrate) 10 Mg Tab 10 Mg PO HS 12/14/16 Reported Flintstones Chewable (Pediatric Multiple Vitamin W/) 1 Chw Chw 1 Tab PO BID 11/03/16 Reported Review of Systems Constitutional: No fever, No chills, No sweats, No weight loss, No weakness Eyes: No eye pain, No redness ENT: No sore throat, No trouble swallowing, No pain on swallowing Respiratory: No cough, No wheezing, No shortness of breath, No dyspnea on exertion Cardiac: No chest pain, No edema, No palpitations Abdomen: + see HPI, + problem reported (slight decrease in appetite in the past week) Male : + problem reported (scrotal pain and swelling) Neuro: No memory loss, No weakness, No numbness/tingling, No vertigo, No balance problems Psych: No depression symptoms, No anxiety, No insomnia Heme: No abnormal bleeding/bruising, No night sweats Endo: No excessive thirst, No excessive urination Skin: No rash, No itch, No new/changing skin lesions, No jaundice Physical Exam Date Time Temp Pulse Resp B/P (MAP) Pulse Ox O2 Delivery O2 Flow Rate FiO2 12/16/16 07:48 Room Air 12/16/16 07:07 36.5 54 18 118/60 (79) 98 Room Air 12/15/16 23:30 Room Air 12/15/16 23:30 36.7 56 16 123/73 99 12/15/16 22:30 36.6 52 16 115/70 100 12/15/16 21:31 36.5 50 16 126/72 100 12/15/16 21:00 36.7 53 16 116/70 98 12/15/16 20:45 36.8 55 16 116/69 98 12/15/16 20:28 36.7 58 18 116/69 99 0.0 12/15/16 19:28 36.7 53 16 118/72 100 12/15/16 18:55 36.5 55 18 116/72 100 12/15/16 17:55 36.3 50 18 119/75 100 12/15/16 17:25 36.4 49 18 118/72 100 12/15/16 17:11 36.4 53 18 125/73 100 12/15/16 16:51 36.5 49 18 111/67 99 0.0 12/15/16 15:45 Room Air 12/15/16 14:52 54 16 120/73 (89) 100 General Appearance: no apparent distress Eyes: normal inspection, EOMI Neck: supple, no adenopathy, thyroid normal, no JVD Respiratory/Chest: chest non-tender, lungs clear, normal breath sounds, no accessory muscle use Cardiovascular: regular rate, rhythm, no JVD, no murmur Abdomen: normal bowel sounds, non tender, soft, no organomegaly Extremities: normal inspection, no pedal edema, normal capillary refill Neurologic/Psych: alert, normal mood/affect, oriented x 3 Skin: normal color, no jaundice, warm/dry, no rash genitalia not examined Laboratory Results Last 24 Hours Test 12/15/16 14:26 12/15/16 15:35 12/16/16 05:42 12/16/16 05:46 Iron Level 11 mcg/dl Total Iron Binding Capacity 166 mcg/dl Transferrin 129 mg/dl Transferrin % Saturation 6 % Ferritin 146.0 ng/ml Stool Occult Blood POSITIVE Sodium Level 142 mmol/L Potassium Level 3.6 mmol/L Chloride Level 108 mmol/L Carbon Dioxide Level 25 mmol/L Anion Gap 9.0 mmol/L Blood Urea Nitrogen 13 mg/dl Creatinine 0.53 mg/dl Est Creatinine Clear Calc Drug Dose 181.0 ml/min Estimated GFR () 137.1 Estimated GFR (Non- 118.3 BUN/Creatinine Ratio 23.6 Random Glucose 84 mg/dl Calcium Level 7.9 mg/dl Vitamin B12 Level 778 pg/mL Folate 17.69 ng/mL White Blood Count 6.13 K/uL Red Blood Count 3.51 M/uL Hemoglobin 9.4 g/dL Hematocrit 29.2 % Mean Corpuscular Volume 83.2 fL Mean Corpuscular Hemoglobin 26.8 pg Mean Corpuscular Hemoglobin Concent 32.2 g/dl RDW Standard Deviation 41.0 fL RDW Coefficient of Variation 13.5 % Platelet Count 194 K/uL Mean Platelet Volume 9.6 fL Impression Patient is a 56 year old male with iron deficiency anemia. Indices are normocytic. Cause of anemia is likely multifactorial including hx of gastric bypass which causes poor iron absorption, recent infection and antibiotic use, recent surgery and ecchymosis. He is at risk for anastomotic ulcer and this should be ruled out. Plan Mr. Alberto should undergo EGD to r/o anastomotic ulcer. However, because there is no gross GI bleeding, this is not emergent. Will discuss timing of the EGD with Dr. Milan and provide further recommendations. I saw and evaluated the patient with Ms. ortega. GI is consulted for a question of anemia, history of gastric bypass, Heme + stool, no melena or abdominal pain PE:NAD, no icterus Impression; patient with mild worsening of anemia, no melena or hematemesis. There does not appear to be obvious GI bleeding, would suggest an EGD to evaluate for an anastomotic ulcer (colonoscopy < 2 years ago with small polyps and diverticulosis). Plan EGD to be offered
--- NOTE | 2016-12-16 13:39 | Progress Note ---
Internal Med Progress Note Date of Service: Dec 16, 2016. Provider Documentation: SUBJECTIVE: The patient was seen and examined Pain and swelling in scrotum is much better Denies any fever,chills No Bleeding and or black stool OBJECTIVE: Vital Signs-as noted below Exam: General-Moderate distress at rest Eyes-normal ENT-normal Neck-supple Lungs-Clear to ausucltate bilaterally Heart-Regular,no murmur appreciated Abdomen-Benign,no masses,bowel sound present Extremities-No edema Local area of the scrotum is not examined Neuro-AAox3 Lab data as noted below. ASSESSMENT & PLAN: SCROTAL ABSCESS Left hydrocele surgery approx 10 days back ( surgery on 12/03/16 ) Presented with fever , worsening of pain , swelling , drainage at scrotal area CT abdomen pelvis suggestive of scrotal abscess /hematoma On IV Abx with vancomycin /Azactam ( pt is allergic to PCN ) S/P I&D by the Urologist ID on board and added po Flagyl Wound care consult and recommendation -pending Await C/S and appropriate use of antibiotic Social Svc for discharge planning RECENT LEFT HYDROCELECTOMY : possible post op complication as above Urology consulted-appreciate input Blood loss Anemia Acute on chronic? Hemoccult came back positive H/O of gastric bypass Iron studies-Iron is low Vitamin b12 and folic acid levels-normal Received 2 units on 12/15/16 Started on ppi bid Consult GI -appreciate input DVT PROPHYLAXIS scds DISPOSITION to be determined Vital Signs: Date Time Temp Pulse Resp B/P (MAP) Pulse Ox O2 Delivery O2 Flow Rate FiO2 12/16/16 07:48 Room Air 12/16/16 07:07 36.5 54 18 118/60 (79) 98 Room Air 12/15/16 23:30 Room Air 12/15/16 23:30 36.7 56 16 123/73 99 12/15/16 22:30 36.6 52 16 115/70 100 12/15/16 21:31 36.5 50 16 126/72 100 12/15/16 21:00 36.7 53 16 116/70 98 12/15/16 20:45 36.8 55 16 116/69 98 12/15/16 20:28 36.7 58 18 116/69 99 0.0 12/15/16 19:28 36.7 53 16 118/72 100 12/15/16 18:55 36.5 55 18 116/72 100 12/15/16 17:55 36.3 50 18 119/75 100 12/15/16 17:25 36.4 49 18 118/72 100 12/15/16 17:11 36.4 53 18 125/73 100 12/15/16 16:51 36.5 49 18 111/67 99 0.0 12/15/16 15:45 Room Air 12/15/16 14:52 54 16 120/73 (89) 100 Lab Results: Results Past 24 Hours Test 12/15/16 14:26 12/15/16 15:35 12/16/16 05:42 12/16/16 05:46 Range/Units Iron Level 11 35-175 mcg/dl Total Iron Binding Capacity 166 250-450 mcg/dl Transferrin 129 200-360 mg/dl Transferrin % Saturation 6 20-50 % Ferritin 146.0 8.0-388.0 ng/ml Stool Occult Blood POSITIVE NEGATIVE Sodium Level 142 136-145 mmol/L Potassium Level 3.6 3.5-5.1 mmol/L Chloride Level 108 98-107 mmol/L Carbon Dioxide Level 25 21-32 mmol/L Anion Gap 9.0 3-11 mmol/L Blood Urea Nitrogen 13 7-18 mg/dl Creatinine 0.53 0.60-1.40 mg/dl Est Creatinine Clear Calc Drug Dose 181.0 ml/min Estimated GFR () 137.1 Estimated GFR (Non- 118.3 BUN/Creatinine Ratio 23.6 10-20 Random Glucose 84 70-99 mg/dl Calcium Level 7.9 8.5-10.1 mg/dl Vitamin B12 Level 778 211-911 pg/mL Folate 17.69 >5.38 ng/mL White Blood Count 6.13 4.8-10.8 K/uL Red Blood Count 3.51 4.7-6.1 M/uL Hemoglobin 9.4 14.0-18.0 g/dL Hematocrit 29.2 42-52 % Mean Corpuscular Volume 83.2 80-100 fL Mean Corpuscular Hemoglobin 26.8 25-34 pg Mean Corpuscular Hemoglobin Concent 32.2 32-36 g/dl RDW Standard Deviation 41.0 36.4-46.3 fL RDW Coefficient of Variation 13.5 11.5-14.5 % Platelet Count 194 130-400 K/uL Mean Platelet Volume 9.6 7.4-10.4 fL
[2016-12-16] MEDS ORDERED: CYANOCOBALAMIN 1000 MCG/ML VIAL IM ONE (14:00)
[2016-12-16 15:20] VITALS: BP 144/81; PULSE 47; TEMP 36.3; O2SAT 100
[2016-12-16] MEDS ORDERED: VANCOMYCIN TROUGH SCH (15:30)
[2016-12-16] MEDS: BOOST VANILLA PO SCH ×4 (16:36→17:45)
--- NOTE | 2016-12-16 18:50 | Pharmacy Progress Note ---
Pharmacy Abx Dose Progress Nt Date of Service Dec 16, 2016. Pharmacy Dosing Scope The patient is currently receiving the following antimicrobial agents: * Vancomycin 1500mg IV q6h (6000mg/day) * Aztreonam 1gm IV q8h * Metronidazole 500mg po tid Objective Height (Feet): 6 Height (Inches): 2.00 Weight (Kilograms): 90.910 Vital Signs (Past 12Hrs) Vital Signs Past 12 Hours Date Time Temp Pulse Resp B/P (MAP) Pulse Ox O2 Delivery O2 Flow Rate FiO2 12/16/16 15:20 36.3 47 16 144/81 (102) 100 Room Air 12/16/16 12:00 Room Air 12/16/16 07:48 Room Air 12/16/16 07:07 36.5 54 18 118/60 (79) 98 Room Air Lab Results (24Hrs) Laboratory Tests (24 Hours) Test 12/16/16 05:46 White Blood Count 6.13 K/uL (4.8-10.8) Micro Results Date/Time Source Procedure Growth Status 12/13/16 23:33 Blood Blood Culture - Preliminary NO GROWTH TO DATE. Resulted 12/13/16 23:23 Blood Blood Culture - Preliminary NO GROWTH TO DATE. Resulted 12/14/16 03:04 Abscess Scrotum Gram Stain - Final Resulted 12/14/16 03:04 Bacterial Culture - Preliminary Propionibacterium Granulosum Alpha Strep. Not Enterococcus Resulted Risk Factors for Resistance * Hospitalization for 48 hours or more within the past 90 days * Antimicrobial use within the last 90 days: cipro Assessment & Plan Assessment 56 year old male s/p I&D of scrotal abscess (removal of scrotal hydrocele 11 days ago) Day # 4 of antimicrobial therapy Plan Vancomycin IV (Pharmacy Consult) * Trough level of 20.7mcg/mL is: slightly supratherapeutic * Change to: Vancomycin 1350mg IV q6h (5400mg/day) * Goal trough level: 15-20mcg/mL * Trough level ordered for: 12/17/16 2200 dose Continue: Aztreonam 1gm IV q8h (not a pharmacy consult) Metronidazole 500mg po tid (not a pharmacy consult) Pharmacy will continue to follow and will adjust dose/frequency as necessary. Thank you.
[2016-12-16] MEDS: VANCOMYCIN INJ 1,350 MG in SODIUM CHLORIDE 0.9% 250ML 250 ML IV SCH (22:04)
[2016-12-16 23:52] VITALS: BP 121/74; PULSE 44; TEMP 36.5; O2SAT 99
[2016-12-17] MEDS: VANCOMYCIN INJ 1,350 MG in SODIUM CHLORIDE 0.9% 250ML 250 ML IV SCH ×4 (03:34→22:16)
[2016-12-17 04:00] VITALS: PULSE 52
[2016-12-17 06:49] LABS: HEMATOCRIT 29.4 % (42-52); MEAN CELL VOLUME 82.1 fL (80-100); MEAN CORPUSCULAR HGB CONC 31.6 g/dl (32-36); MEAN PLATELET VOLUME 9.9 fL (7.4-10.4); PLATELET COUNT 237 K/uL (130-400); RED BLOOD COUNT 3.58 M/uL (4.7-6.1); WHITE BLOOD COUNT 6.54 K/uL (4.8-10.8)
--- NOTE | 2016-12-17 07:00 | Progress Note ---
Subjective Date of Service: Dec 17, 2016. Subjective Pt evaluation today including: conversation w/ patient, chart review, lab review Voiding: no voiding problems 56 yo male s/p I&D of left scrotal hematoma. Pt denies pain this morning. He is NPO awaiting EGD today for further evaluation of his anemia. Wound care nurse saw pt yesterday, and changed wound packing. Consult for Dr. Vallecillo recommended. Problem List Medical Problems: (1) Acute cholecystitis Status: Acute (2) Fever Status: Acute Review of Systems Constitutional: No fever, No chills Respiratory: No shortness of breath Cardiac: No chest pain Abdomen: No pain, No nausea, No vomiting Male : No dysuria, No hematuria Heme: No abnormal bleeding/bruising Objective Vital Signs Date Time Temp Pulse Resp B/P (MAP) Pulse Ox O2 Delivery O2 Flow Rate FiO2 12/17/16 04:00 52 12/16/16 23:52 36.5 44 15 121/74 (90) 99 Room Air 12/16/16 23:15 Room Air 12/16/16 15:20 36.3 47 16 144/81 (102) 100 Room Air 12/16/16 12:00 Room Air 12/16/16 07:48 Room Air 12/16/16 07:07 36.5 54 18 118/60 (79) 98 Room Air Physical Exam General Appearance: no apparent distress Eyes: normal inspection ENT: hearing grossly normal Neck: no JVD Respiratory/Chest: no respiratory distress, no accessory muscle use Cardiovascular: no JVD Extremities: normal inspection Neurologic/Psychiatric: alert, normal mood/affect, oriented x 3 Skin: normal color Laboratory Results Last 24 Hours Test 12/16/16 15:35 12/17/16 06:33 Vancomycin Level Trough 20.7 mcg/ml White Blood Count 6.54 K/uL Red Blood Count 3.58 M/uL Hemoglobin 9.3 g/dL Hematocrit 29.4 % Mean Corpuscular Volume 82.1 fL Mean Corpuscular Hemoglobin 26.0 pg Mean Corpuscular Hemoglobin Concent 31.6 g/dl RDW Standard Deviation 40.6 fL RDW Coefficient of Variation 13.3 % Platelet Count 237 K/uL Mean Platelet Volume 9.9 fL Assessment and Plan POD #3 s/p I&D scrotal hematoma. AFVSS. Management of abx per ID. Management of anemia per hospitalist. Scrotal hematoma may have contributed? EGD pending today. Will consult Dr. Vallecillo this morning. Will allow wound care to change packing daily. Can f/u with Dr. Vallecillo as an outpatient or arrange for home health to change packing per his recommendations. May d/c Ewen drain today or tomorrow per wound care preference as well. Pt OK for d/c from standpoint. He is scheduled to f/u with Dr. Lewis next week on 12-23. Will keep appt as scheduled. Will continue to follow along with primary service if the pt remains inpatient. Discharge planning: home with home health
[2016-12-17 07:25] LABS: BUN/CREATININE RATIO 24.5 (10-20); CALCIUM 7.7 mg/dl (8.5-10.1); CREATININE 0.49 mg/dl (0.60-1.40); POTASSIUM 3.6 mmol/L (3.5-5.1)
[2016-12-17 07:26] VITALS: BP 118/73; PULSE 46; TEMP 36.5; O2SAT 99
[2016-12-17] MEDS: AZTREONAM IV 1,000 MG in DEXTROSE 5% 100ML 100 ML IV SCH (07:45)
[2016-12-17] MEDS: BOOST VANILLA PO SCH ×6 (09:47→17:45)
--- NOTE | 2016-12-17 09:59 | Infectious Disease Progress Nt ---
Progress Note Date of Service Dec 17, 2016. Subjective Pt evaluation today including: conversation w/ patient, physical exam, chart review, lab review, review of studies, conversation w/ test consultant, review of inpatient medication list Offers no new complaints. Scrotal pain better. No fever. For EGD later today. Cultures have grown Propionibacterium and Strep. All Other Systems: Reviewed and Negative Medications Current Inpatient Medications Medications (Trade) Dose Ordered Sig/Fela Route Start Time Stop Time Status Last Admin Dose Admin Ioversol (Optiray 320) 100 ml UD PRN IV 12/13/16 23:15 12/17/16 23:14 Acetaminophen (Tylenol Tab) 650 mg Q4H PRN PO 12/14/16 01:00 01/13/17 00:59 Al Hydrox/Mg Hydrox/Simethicone (Maalox Max Susp) 15 ml Q4H PRN PO 12/14/16 01:00 01/13/17 00:59 Magnesium Hydroxide (Milk Of Magnesia Susp) 30 ml Q6H PRN PO 12/14/16 01:00 01/13/17 00:59 Polyethylene (Miralax Powder Packet) 17 gm DAILY PRN PO 12/14/16 01:30 01/13/17 01:29 Ondansetron HCl (Zofran Inj) 4 mg Q6H PRN IV 12/14/16 01:00 01/13/17 00:59 Aztreonam 1000 mg/ Dextrose 110 ml @ 100 mls/hr Q8H IV 12/14/16 08:00 12/24/16 07:59 12/17/16 07:45 100 MLS/HR Morphine Sulfate (MoRPHine SULFATE INJ) 1 mg Q4 PRN IV 12/14/16 01:30 12/28/16 01:29 Zolpidem Tartrate (Ambien Tab) 10 mg HSZ PRN PO 12/14/16 22:00 01/13/17 00:59 Multivitamins (Flintstones Complete Tab) 1 tab BID PO 12/14/16 09:00 01/13/17 08:59 12/16/16 20:55 1 TAB Vancomycin HCl (Consult) 1 ea UD PRN N/A 12/14/16 01:30 01/13/17 01:29 Acetaminophen/ Hydrocodone Bitart (Temperance 7.5/325 Tab) 1 tab 6XDQ3H PRN PO 12/14/16 04:30 12/28/16 04:29 12/14/16 23:42 1 TAB Metronidazole (Flagyl Tab) 500 mg TID PO 12/15/16 14:00 12/25/16 13:59 12/16/16 20:55 500 MG Pantoprazole Sodium (Protonix Tab) 40 mg BID PO 12/15/16 21:00 01/14/17 20:59 12/16/16 20:56 40 MG Enteral Nutritional Formula (Boost) 1 can TIDM PO 12/16/16 16:30 01/15/17 16:29 12/16/16 16:36 1 CAN Vancomycin HCl 1350 mg/Sodium Chloride 277 ml @ 125 mls/hr Q6H IV 12/16/16 22:00 12/24/16 09:59 12/17/16 09:48 125 MLS/HR Objective Vital Signs Date Time Temp Pulse Resp B/P (MAP) Pulse Ox O2 Delivery O2 Flow Rate FiO2 12/17/16 08:06 Room Air 12/17/16 07:26 36.5 46 16 118/73 (88) 99 Room Air 12/17/16 04:00 52 12/16/16 23:52 36.5 44 15 121/74 (90) 99 Room Air 12/16/16 23:15 Room Air 12/16/16 15:20 36.3 47 16 144/81 (102) 100 Room Air 12/16/16 12:00 Room Air Physical Exam General Appearance: WD/WN, no apparent distress Eyes: normal inspection, EOMI, sclerae normal ENT: normal ENT inspection, pharynx normal Neck: supple, no adenopathy, trachea midline Respiratory/Chest: lungs clear, normal breath sounds, no respiratory distress Cardiovascular: regular rate, rhythm, no gallop, no murmur Abdomen: normal bowel sounds, non tender, soft, no organomegaly Extremities: non-tender, no calf tenderness Neurologic/Psychiatric: alert, oriented x 3 Skin: normal color, no rash, + pertinent finding (scrotal packing in place) Laboratory Results RUN DATE: 12/16/16 [facility] LAB PAGE 1 RUN TIME: 3250 Specimen Inquiry PATIENT: LUDWIN CORRALES LOC: [facility] U # : [id number] AGE/SX: 56/M ROOM: [facility] REG : 12/14/[address]: Rose Jose M.D. : 1960 BED: 2 DIS : STATUS: ADM IN TLOC: SPEC #: [id number] COY: 12/14/16 STATUS: RES REQ #: [id number] RECD: 12/14/[address]: Cabrera Fuller MD SOURCE: ABSCESS ENTR: 12/14/[address] [facility] [address]: Curt Daugherty MD [facility]: Michael Najera M.D. BRINNONUli Murray M.D. Pervez, Ayesha H., M.D. Ramondelli, Salvatore, M.D. Yingling, Christopher T. M.D. ORDERED: AER/PILAR CULTSMR Procedure Result Verified Site GRAM STAIN Final 12/14/16-3684 RESULT FEW WBCs SEEN MODERATE GRAM POSITIVE COCCI RARE GRAM POSITIVE BACILLI OR AER/PILAR CULT Preliminary 12/16/16-0561 Organism 1 PROPIONIBACTERIUM GRANULOSUM QUANITY FEW SENS NO SENSITIVITY TO FOLLOW +MIXWOUND PLUS LOW COUNTS OF PROBABLE SKIN DANIEL Organism 2 ALPHA STREP. NOT ENTEROCOCCUS QUANPHOENIX RARE SENS NO SENSITIVITY TO FOLLOW Last 24 Hours Test 12/16/16 15:35 12/17/16 06:33 Vancomycin Level Trough 20.7 mcg/ml White Blood Count 6.54 K/uL Red Blood Count 3.58 M/uL Hemoglobin 9.3 g/dL Hematocrit 29.4 % Mean Corpuscular Volume 82.1 fL Mean Corpuscular Hemoglobin 26.0 pg Mean Corpuscular Hemoglobin Concent 31.6 g/dl RDW Standard Deviation 40.6 fL RDW Coefficient of Variation 13.3 % Platelet Count 237 K/uL Mean Platelet Volume 9.9 fL Sodium Level 144 mmol/L Potassium Level 3.6 mmol/L Chloride Level 110 mmol/L Carbon Dioxide Level 26 mmol/L Anion Gap 8.0 mmol/L Blood Urea Nitrogen 12 mg/dl Creatinine 0.49 mg/dl Est Creatinine Clear Calc Drug Dose 195.8 ml/min Estimated GFR () 141.6 Estimated GFR (Non- 122.2 BUN/Creatinine Ratio 24.5 Random Glucose 76 mg/dl Calcium Level 7.7 mg/dl Assessment and Plan Scrotal abscess following repair of hydrocele, now status post surgical drainage , with polymicrobial infection. Would consider transition to oral Abx and suggest clindamycin 300 mg tid for 10-14 days.
[2016-12-17] MEDS ORDERED: LIDOCAINE HCL 2% 2 ML VIAL (20MG/ML) ONE (10:19)
[2016-12-17] MEDS ORDERED: PROPOFOL IV EMULSION 10 MG/ML 20 ML VIAL IV ONE (10:19)
[2016-12-17] MEDS ORDERED: FENTANYL CITRATE INJ 50 MCG/1 ML 2 ML VIAL ONE (10:20)
[2016-12-17] MEDS ORDERED: MIDAZOLAM HCL 1 MG/ML 2ML VIAL ONE (10:20)
--- NOTE | 2016-12-17 11:33 | GI REPORT ---
Procedure Date: 12/17/2016 11:20 AM Procedure: Upper GI endoscopy Indications: Acute post hemorrhagic anemia Medicines: Monitored Anesthesia Care Complications: No immediate complications. Estimated blood loss: Minimal. Estimated Blood Loss: Estimated blood loss was minimal. Procedure: Pre-Anesthesia Assessment: - Prior to the procedure, a History and Physical was performed, and patient medications, allergies and sensitivities were reviewed. The patient's tolerance of previous anesthesia was reviewed. - The risks and benefits of the procedure and the sedation options and risks were discussed with the patient. All questions were answered and informed consent was obtained. - Patient identification and proposed procedure were verified prior to the procedure by the physician, the nurse and the promotion officer. The procedure was verified in the procedure room. - Pre-procedure physical examination revealed no contraindications to sedation. - ASA Grade Assessment: III - A patient with severe systemic disease. - After reviewing the risks and benefits, the patient was deemed in satisfactory condition to undergo the procedure. - The anesthesia plan was to use monitored anesthesia care (MAC). - Immediately prior to administration of medications, the patient was re-assessed for adequacy to receive sedatives. - The heart rate, respiratory rate, oxygen saturations, blood pressure, adequacy of pulmonary ventilation, and response to care were monitored throughout the procedure. - The physical status of the patient was re-assessed after the procedure. After obtaining informed consent, the endoscope was passed under direct vision. Throughout the procedure, the patient's blood pressure, pulse, and oxygen saturations were monitored continuously. The scope was introduced through the mouth, and advanced to the jejunum. The upper GI endoscopy was accomplished without difficulty. The patient tolerated the procedure well. Findings: The upper third of the esophagus and middle third of the esophagus were normal. There were esophageal mucosal changes suspicious for Oconnor's esophagus present in the lower third of the esophagus with an irregular z-line at 42 cm (DH at 46, GEJ at 44 cm). The maximum longitudinal extent of these mucosal changes was 2 cm in length. Biopsies not done today as exam being performed for suspected UGI bleeding. Evidence of a gastric bypass was found. A gastric pouch with a medium size was found. The staple line appeared intact. The gastrojejunal anastomosis was characterized by a large, deep ulceration measuring over 20 mm in diameter. The ulceration appeared to be clean based. This was traversed. The [id number] limb was not examined as it could not be reached. Impression: - Normal upper third of esophagus and middle third of esophagus. 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 - Gastric bypass with a medium-sized pouch and intact staple line. - Gastrojejunal anastomosis characterized by large anastomotic ulceration. - No specimens collected. Recommendation: - [facility] to [facility] for [facility] care. - Use Protonix (pantoprazole) 40 mg PO BID for 6 weeks, then 1 time daily. - Use sucralfate suspension 1 gram PO BID for 4 weeks. - Repeat the upper endoscopy in 3 months for surveillance. - Avoid NSAIDS please. Rajan Milan D.O. Rajan Milan, 12/17/2016 11:33:03 AM This report has been signed electronically. Note Initiated On: 12/17/2016 11:20 AM I attest to the content of the Intraoperative Record and orders documented therein, exceptions below
[2016-12-17] MEDS: METRONIDAZOLE 500 MG TAB PO SCH ×3 (12:09→20:37)
[2016-12-17] MEDS: PANTOprazole SOD 40 MG TAB PO SCH ×2 (12:54→20:36)
[2016-12-17] MEDS: FLINTSTONES COMPLETE CHEWABLE TAB PO SCH ×2 (12:54→20:37)
[2016-12-17] MEDS ORDERED: LORAZEPAM 0.5 MG TAB PO PRN (13:30)
--- NOTE | 2016-12-17 13:46 | Progress Note ---
Internal Med Progress Note Date of Service: Dec 17, 2016. Provider Documentation: SUBJECTIVE: The patient was seen and examined Pain and swelling in scrotum is much better Denies any fever,chills No Bleeding and or black stool S/P EGD Wants to go home today OBJECTIVE: Vital Signs-as noted below Exam: General-No distress at rest Eyes-normal ENT-normal Neck-supple Lungs-Clear to ausucltate bilaterally Heart-Regular,no murmur appreciated Abdomen-Benign,no masses,bowel sound present Extremities-No edema Local area of the scrotum is not examined Neuro-AAox3 Lab data as noted below. ASSESSMENT & PLAN: SCROTAL ABSCESS Left hydrocele surgery approx 10 days back ( surgery on 12/03/16 ) Presented with fever , worsening of pain , swelling , drainage at scrotal area CT abdomen pelvis suggestive of scrotal abscess /hematoma On IV Abx with vancomycin /Azactam ( pt is allergic to PCN ) S/P I&D by the Urologist ID on board and added po Flagyl Wound care consult and recommendation -pending Wound C/S:: OR AER/PILAR CULT Preliminary 06/22-1517 Organism 1 PROPIONIBACTERIUM GRANULOSUM QUANITY FEW SENS NO SENSITIVITY TO FOLLOW +MIXWOUND PLUS LOW COUNTS OF PROBABLE SKIN DANIEL Organism 2 ALPHA STREP. NOT ENTEROCOCCUS QUANITY RARE SENS NO SENSITIVITY TO FOLLOW Social Svc for discharge planning Antibiotic as per ID Wound care provider consult RECENT LEFT HYDROCELECTOMY : possible post op complication as above Urology consulted-appreciate input Blood loss Anemia Acute on chronic? Hemoccult came back positive H/O of gastric bypass Iron studies-Iron is low Vitamin b12 and folic acid levels-normal Received 2 units on 12/15/16 Started on ppi bid Consult GI -appreciate input S/P EGD-large anastomotic Ulcer-non bleeding DVT PROPHYLAXIS scds DISPOSITION Home to [place] Vital Signs: Date Time Temp Pulse Resp B/P (MAP) Pulse Ox O2 Delivery O2 Flow Rate FiO2 12/17/16 12:10 48 16 123/80 (94) 97 Room Air 12/17/16 11:45 48 16 128/84 (99) 97 Room Air 12/17/16 11:34 47 16 115/70 (85) 98 Room Air 12/17/16 10:44 36.5 46 16 132/78 (96) 100 Room Air 12/17/16 08:06 Room Air 12/17/16 07:26 36.5 46 16 118/73 (88) 99 Room Air 12/17/16 04:00 52 12/16/16 23:52 36.5 44 15 121/74 (90) 99 Room Air 12/16/16 23:15 Room Air 12/16/16 15:20 36.3 47 16 144/81 (102) 100 Room Air Lab Results: Results Past 24 Hours Test 12/16/16 15:35 12/17/16 06:33 Range/Units Vancomycin Level Trough 20.7 SEE COMMENT mcg/ml White Blood Count 6.54 4.8-10.8 K/uL Red Blood Count 3.58 4.7-6.1 M/uL Hemoglobin 9.3 14.0-18.0 g/dL Hematocrit 29.4 42-52 % Mean Corpuscular Volume 82.1 80-100 fL Mean Corpuscular Hemoglobin 26.0 25-34 pg Mean Corpuscular Hemoglobin Concent 31.6 32-36 g/dl RDW Standard Deviation 40.6 36.4-46.3 fL RDW Coefficient of Variation 13.3 11.5-14.5 % Platelet Count 237 130-400 K/uL Mean Platelet Volume 9.9 7.4-10.4 fL Sodium Level 144 136-145 mmol/L Potassium Level 3.6 3.5-5.1 mmol/L Chloride Level 110 98-107 mmol/L Carbon Dioxide Level 26 21-32 mmol/L Anion Gap 8.0 3-11 mmol/L Blood Urea Nitrogen 12 7-18 mg/dl Creatinine 0.49 0.60-1.40 mg/dl Est Creatinine Clear Calc Drug Dose 195.8 ml/min Estimated GFR () 141.6 Estimated GFR (Non- 122.2 BUN/Creatinine Ratio 24.5 10-20 Random Glucose 76 70-99 mg/dl Calcium Level 7.7 8.5-10.1 mg/dl
--- NOTE | 2016-12-17 14:19 | Anesthesiology Progress Note ---
Anesthesia Post Op Note Date & Time Dec 17, 2016 at 14:19 Vital Signs Pain Intensity: 0 Vital Signs Past 12 Hours Date Time Temp Pulse Resp B/P (MAP) Pulse Ox O2 Delivery O2 Flow Rate FiO2 12/17/16 12:10 48 16 123/80 (94) 97 Room Air 12/17/16 11:45 48 16 128/84 (99) 97 Room Air 12/17/16 11:34 47 16 115/70 (85) 98 Room Air 12/17/16 10:44 36.5 46 16 132/78 (96) 100 Room Air 12/17/16 08:06 Room Air 12/17/16 07:26 36.5 46 16 118/73 (88) 99 Room Air 12/17/16 04:00 52 Notes Mental Status: alert / awake / arousable, participated in evaluation Pt Amnestic to Procedure: Yes Nausea / Vomiting: adequately controlled Pain: adequately controlled Airway Patency, RR, SpO2: stable & adequate BP & HR: stable & adequate Hydration State: stable & adequate Anesthetic Complications: no major complications apparent
[2016-12-17 14:56] VITALS: BP 112/71; PULSE 54; TEMP 36.5; O2SAT 99
[2016-12-17] MEDS: SUCRALFATE 1 GM/10 ML UDC PO SCH (20:37)
[2016-12-17] MEDS ORDERED: VANCOMYCIN TROUGH SCH (21:30)
[2016-12-17 22:56] VITALS: BP 118/72; PULSE 55; TEMP 36.9; O2SAT 98
[2016-12-18] MEDS: VANCOMYCIN INJ 1,350 MG in SODIUM CHLORIDE 0.9% 250ML 250 ML IV SCH (03:41)
[2016-12-18 07:15] VITALS: BP 143/80; PULSE 50; TEMP 36.6; O2SAT 99
[2016-12-18 08:00] VITALS: O2SAT 99
--- NOTE | 2016-12-18 08:01 | Progress Note ---
Subjective Date of Service: Dec 18, 2016. Subjective Pt evaluation today including: conversation w/ patient, chart review, lab review Voiding: no voiding problems 56 yo male s/p I&D left scrotum for hematoma. EGD yesterday showing Oconnor's esophagus. H&H stable this morning at 9.3 and 29.4. Unfortunately the pt was not seen by Dr. Vallecillo yesterday. Wound packing not changed. He denies any pain this morning. Reports swelling is improving. Desires to be discharged home when able. Problem List Medical Problems: (1) Acute cholecystitis Status: Acute (2) Fever Status: Acute Review of Systems Constitutional: No fever, No chills Respiratory: No shortness of breath Cardiac: No chest pain Abdomen: No pain, No nausea, No vomiting Male : No dysuria, No hematuria Heme: No abnormal bleeding/bruising Objective Vital Signs Date Time Temp Pulse Resp B/P (MAP) Pulse Ox O2 Delivery O2 Flow Rate FiO2 12/18/16 07:15 36.6 50 17 143/80 (101) 99 Room Air 12/18/16 00:00 Room Air 12/17/16 22:56 36.9 55 16 118/72 (87) 98 Room Air 12/17/16 15:05 Room Air 12/17/16 14:56 36.5 54 16 112/71 (85) 99 Room Air 12/17/16 12:10 48 16 123/80 (94) 97 Room Air 12/17/16 11:45 48 16 128/84 (99) 97 Room Air 12/17/16 11:34 47 16 115/70 (85) 98 Room Air 12/17/16 10:44 36.5 46 16 132/78 (96) 100 Room Air 12/17/16 08:06 Room Air Physical Exam General Appearance: no apparent distress Eyes: normal inspection ENT: hearing grossly normal Neck: no JVD Respiratory/Chest: no respiratory distress, no accessory muscle use Cardiovascular: no JVD Extremities: normal inspection Neurologic/Psychiatric: alert, normal mood/affect, oriented x 3 Skin: normal color Comments: Scrotum remains swollen with wound packing and joseph draining serosanguinous fluid. Laboratory Results Last 24 Hours Test 12/17/16 21:51 Vancomycin Level Trough 21.2 mcg/ml Assessment and Plan POD #4 s/p I&D scrotal hematoma. AFVSS. Management of abx per ID. Appreciate input. Will consult Dr. Vallecillo this morning. Will allow wound care to change packing daily. Can f/u with Dr. Vallecillo as an outpatient or arrange for home health to change packing per his recommendations. May d/c Joseph drain today unless Dr. Vallecillo prefers to keep in place. Pt OK for d/c from standpoint. He is scheduled to f/u with Dr. Lewis next week on 12-23. Will keep appt as scheduled. Will continue to follow along with primary service if the pt remains inpatient. Discharge planning: home with home health
[2016-12-18] MEDS: METRONIDAZOLE 500 MG TAB PO SCH (08:08)
[2016-12-18] MEDS: SUCRALFATE 1 GM/10 ML UDC PO SCH (08:09)
[2016-12-18] MEDS: PANTOprazole SOD 40 MG TAB PO SCH (08:09)
[2016-12-18] MEDS: FLINTSTONES COMPLETE CHEWABLE TAB PO SCH (08:09)
[2016-12-18] MEDS: BOOST VANILLA PO SCH ×4 (08:11→12:30)
[2016-12-18 09:24] VITALS: BP 143/80; PULSE 50; TEMP 36.6; O2SAT 99
[2016-12-18] MEDS ORDERED: VANCOMYCIN TROUGH SCH (09:30)
--- NOTE | 2016-12-18 10:11 | Clinical Documentation Query ---
CLINICAL DOCUMENTATION QUERY Dr. YUAN, In your clinical opinion is this patient being managed for: ( ) Acute anastomotic ulcer with bleeding ( ) Acute anastomotic ulcer without bleeding ( ) Chronic anastomotic ulcer with bleeding ( ) Chronic anastomotic ulcer without bleeding ( ) Other explanation of clinical findings (Please Explain) ( ) Unable to determine (Please Define) ( ) Need to Discuss ( ) Not Agree The medical record reflects the following clinical findings, treatment, and risk factors. Clinical Indicators: 56 yo male who presented with scrotal abscess/hematoma. Also noted to have developed anemia. Initially Hgb 8.5/Hct 27.1, dropping as low as 7.5/23.3. Heme + stools. Treatment: transfuse 2 U PRBC, GI consult with EGD revealing a large anastomotic ulcer, carafate, protonix, avoid NSAIDS, plan to repeat EGD in 3 months as outpatient Risk Factors: gastric bypass, ulcer Please clarify and document your clinical opinion in the progress notes and discharge summary. Terms such as "probable", "suspected", "likely", "questionable", "possible", or "still to be ruled out" are acceptable. IF IN AGREEMENT, YOU MUST DOCUMENT ABOVE DIAGNOSTIC STATEMENT IN DAILY PROGRESS NOTES AND DISCHARGE SUMMARY. This document is not part of the patient's record. Thank You, Priscilla Sanchez RN [phone]
--- NOTE | 2016-12-18 10:38 | Progress Note ---
Internal Med Progress Note Date of Service: Dec 18, 2016. Provider Documentation: SUBJECTIVE: The patient was seen and examined Pain and swelling in scrotum is much better Denies any fever,chills No Bleeding and or black stool S/P EGD Waiting to see Dr Vallecillo today OBJECTIVE: Vital Signs-as noted below Exam: General-No distress at rest Eyes-normal ENT-normal Neck-supple Lungs-Clear to ausucltate bilaterally Heart-Regular,no murmur appreciated Abdomen-Benign,no masses,bowel sound present Extremities-No edema Left scrotal I&D area not inflamed There is a wound Gap and medicated gauge pack in place No drainage Neuro-AAox3 Lab data as noted below. ASSESSMENT & PLAN: SCROTAL ABSCESS Left hydrocele surgery approx 10 days back ( surgery on 12/03/16 ) Presented with fever , worsening of pain , swelling , drainage at scrotal area CT abdomen pelvis suggestive of scrotal abscess /hematoma On IV Abx with vancomycin /Azactam ( pt is allergic to PCN ) S/P I&D by the Urologist ID on board and added po Flagyl Wound care consult and recommendation -pending Wound C/S:: OR AER/PILAR CULT Preliminary 06/22-1517 Organism 1 PROPIONIBACTERIUM GRANULOSUM QUANITY FEW SENS NO SENSITIVITY TO FOLLOW +MIXWOUND PLUS LOW COUNTS OF PROBABLE SKIN DANIEL Organism 2 ALPHA STREP. NOT ENTEROCOCCUS QUANITY RARE SENS NO SENSITIVITY TO FOLLOW Social Svc for discharge planning Antibiotic as per ID -recommended Oral Clindamycin Wound care provider consult -await input RECENT LEFT HYDROCELECTOMY : possible post op complication as above Urology consulted-appreciate input Blood loss Anemia Acute on chronic? Hemoccult came back positive H/O of gastric bypass Iron studies-Iron is low Vitamin b12 and folic acid levels-normal Received 2 units on 12/15/16 Started on ppi bid Consult GI -appreciate input S/P EGD-large anastomotic Ulcer-non bleeding Recommendation is applied DVT PROPHYLAXIS scds DISPOSITION Home this afternoon after being evaluated by the Wound care provider Vital Signs: Date Time Temp Pulse Resp B/P (MAP) Pulse Ox O2 Delivery O2 Flow Rate FiO2 12/18/16 09:24 36.6 50 17 99 Room Air 12/18/16 08:00 99 Room Air 12/18/16 07:15 36.6 50 17 143/80 (101) 99 Room Air 12/18/16 00:00 Room Air 12/17/16 22:56 36.9 55 16 118/72 (87) 98 Room Air 12/17/16 15:05 Room Air 12/17/16 14:56 36.5 54 16 112/71 (85) 99 Room Air 12/17/16 12:10 48 16 123/80 (94) 97 Room Air 12/17/16 11:45 48 16 128/84 (99) 97 Room Air 12/17/16 11:34 47 16 115/70 (85) 98 Room Air 12/17/16 10:44 36.5 46 16 132/78 (96) 100 Room Air Lab Results: Results Past 24 Hours Test 12/17/16 21:51 12/18/16 09:25 Range/Units Vancomycin Level Trough 21.2 21.9 SEE COMMENT mcg/ml
[2016-12-18] MEDS ORDERED: CRFUDL PO (11:54)
[2016-12-18] MEDS ORDERED: PRT40 PO (11:54)
[2016-12-18] MEDS ORDERED: LCTX PO (11:54)
[2016-12-18] MEDS ORDERED: CLC150 PO (11:54)
[2016-12-18] MEDS ORDERED: HYDR-3983 PO (11:54)
--- NOTE | 2016-12-18 11:56 | Discharge Instructions ---
Discharge Instructions Date of Service Dec 18, 2016. Admission Reason for Admission: Scrotal Infection Discharge Discharge Diagnosis / Problem: Left Scrotal Abscess S/P I&D Discharge Goals Goal(s): Prevent Disease Progression Activity Recommendations Activity Limitations: resume your previous activity . Instructions / Follow-Up Instructions / Follow-Up Please make an appointment with your PCP in 1 week.Keep follow up appointment with Wound clinic and Dr. Lewis next week on 12-23.Dressing change as per Wound care Current Hospital Diet Patient's current hospital diet: Regular Diet Discharge Diet Recommended Diet: Regular Diet Procedures Procedures Performed: EGD Pending Studies Studies pending at discharge: no Medical Emergencies . Who to Call and When: Medical Emergencies: If at any time you feel your situation is an emergency, please call 911 immediately. . Non-Emergent Contact Non-Emergency issues call your: Primary Care Provider . Past History Medical & Surgical History: (1) Anastomotic ulcer (2) Scrotal infection (3) HTN (hypertension) . "Provider Documentation" section prepared by Rose Jose. . VTE Core Measure Inpt VTE Proph given/why not?: Adrian Demarco, SCD's
[2016-12-18] MEDS ORDERED: CLINDAMYCIN HCL 150 MG CAP PO SCH (14:00)
--- NOTE | 2016-12-18 14:31 | CONSULTATION REPORT ---
DATE OF CONSULTATION: 12/18/2016 CHIEF COMPLAINT: Postoperative hematoma evacuation of the scrotum. HISTORY OF PRESENT ILLNESS: The patient was recently admitted to [facility] on December 14 for evaluation of a postoperative abscess hematoma formation to the left scrotal region. The patient had been postoperative for a left hydrocele from December 03. The patient developed fever, pain, and swelling in the scrotal region and subsequently was admitted for further evaluation. The patient underwent evacuation and drainage of the abscess and hematoma formation, 3 days prior. The patient currently denies any fevers, chills or night sweats. The patient denies any increased pain. The patient denies any swelling in the suprapubic or left leg region. The patient denies any chest pain, shortness of breath or abdominal discomfort. No nausea or vomiting. The patient denies any other systemic complaints. PAST MEDICAL HISTORY: Positive for gastroesophageal reflux and hypertension. PAST SURGICAL HISTORY: Positive for gastric bypass as well as that noted above. SOCIAL HISTORY: The patient is a nonsmoker, and lives at home. MEDICATIONS: Noted in the nursing notes were reviewed. ALLERGIES: AMOXICILLIN. REVIEW OF SYSTEMS: Ten systems were reviewed in their entirety and positive findings were noted in the chief complaint and history of present illness. PHYSICAL EXAMINATION: VITAL SIGNS: Reviewed and found to be unremarkable. The patient is afebrile. GENERAL: The patient is lying in hospital bed in no acute distress, alert and cooperative throughout the examination. HEENT: Pupils equal and reactive to light. Sclerae clear. NECK: Supple. CHEST: Heart and lungs clear to auscultation. ABDOMEN: Soft, nondistended. There is no suprapubic tenderness. GENITOURINARY: Genital region reveals the presence of a postoperative open wound area on the left scrotal region as well as a Jessica drain inferior to this. There are 2 sutures noted at the incision site. There is no active drainage or odor present. There is diffuse swelling and induration of the surrounding tissues. No fluctuance noted. The wound site measures 3 x 0.5 x 1.7 cm tunneling at 2 o'clock to 4.5 cm, at 4 o'clock to 5 cm, 8 o'clock to 4 cm, and 11 o'clock to 8.5 cm. There is some ecchymosis noted in the left inguinal region but no tenderness to palpation. NEUROLOGIC: The patient is alert and oriented x3. No focal deficits noted. IMPRESSION: Postoperative wound to the left scrotal region following evacuation of abscess and hematoma formation. PLAN: At this time, no debridement is indicated. The 2 remaining sutures were removed as well as the Hamlet drain. The patient today will have packing with iodoform gauze 1/2 inch as well as a secondary gauze dressings. The patient will be seen in the outpatient environment at the wound clinic tomorrow where a wound VAC will be applied at that time white foam at 125 mm of negative pressure. The VAC will be subsequently changed on Friday, Friday, Friday. This was explained in detail to the patient and the patient's and they are in agreement with the course of therapy indicated.
--- NOTE | 2016-12-19 08:11 | Discharge Summary ---
Discharge Summary Date of Service Dec 19, 2016. Discharge Summary Admission Date: Dec 14, 2016 at 00:48 Discharge Date: Dec 18, 2016 Discharge Disposition: Home with services Principal Diagnosis: Left Scrotal Abscess S/P I&D Secondary Diagnoses/Problems: Please see H&P and Hospital Progress note Procedures: I&D of Left Scrotal Abscess Consultations: Urology and ID Medication Reconciliation New Medications: Lactobacillus Acidophilus (Lactinex) Tab 2 TAB PO BID, #60 TAB Clindamycin HCl (Clindamycin HCl) 150 Mg Cap 300 MG PO TID for 10 Days, #60 CAP Hydrocodone/Acetaminophen 7.5MG/325MG ([place] 7.5MG/325MG) Tab 1 TAB PO Q6H PRN for Pain for 7 Days, #20 TAB PRN PAIN Pantoprazole (Pantoprazole Sodium) 40 Mg Tab 40 MG PO BID for 30 Days, #60 TAB Sucralfate (Sucralfate) 1 Gm/10 Ml Susp 1 GM PO BID for 30 Days, #60 Continued Medications: Pediatric Multiple Vitamin W/ (Flintstones Chewable) 1 Chw Chw 1 TAB PO BID, TAB Zolpidem Tartrate (Ambien) 10 Mg Tab 10 MG PO HS, TAB Admission Information HPI (per Admitting provider): This is a 56 yo Male with past medical hx of obesity s/p bariatric surgery in 2016 , CARA underwent Left hydrocele surgery by Urology Dr Lewis on 12/03/16 presents today with fever , worsening of pain and swelling at scrotal area , Pt had continued swelling, ecchymosis on left scrotal area after surgery was seen at Urology office for the past 2 days pt continued to spike temp , swelling and ecchymosis got progressively worse came to ED , CT abdomen /pelvis shows -hematoma vs abscess in scrotal area Urology notified pt taken OR for emergent i&D Past Medical/Surgical History Medical Problems: (1) GERD (gastroesophageal reflux disease) Status: Chronic (2) HTN (hypertension) Status: Chronic Surgical Problems: (1) Hx of gastric bypass Status: Resolved Family History Patient reports no known family medical history. Social History Smoking Status: Never Smoker Drug Use: none Marital Status: Occupational Status: employed Allergies Coded Allergies: Amoxicillin (Verified Allergy, Unknown, RASH, 12/03/16) Home Medications Scheduled Pediatric Multiple Vitamin W/ (Flintstones Chewable), 1 TAB PO BID Zolpidem Tartrate (Ambien), 10 MG PO HS Review of Systems Constitutional: + fever, + chills, + sweats, + weakness, + fatigue Respiratory: No cough, No sputum, No wheezing, No shortness of breath, No dyspnea on exertion, No dyspnea at rest, No hemoptysis, No problem reported Cardiovascular: No chest pain, No orthopnea, No PND, No edema, No claudication , No palpitations, No problem reported Abdomen: No pain, No nausea, No vomiting, No diarrhea, No constipation, No GI bleeding, No problem reported Genitourinary - Male: + problem reported (scrotal swelling , pain , eccymosis ) Neurologic: No memory loss, No paralysis, No weakness, No numbness/tingling, No vertigo, No balance problems, No problem reported Physical Ex - H&P Physical Exam Vital Signs Date Time Temp Pulse Resp B/P (MAP) Pulse Ox O2 Delivery O2 Flow Rate FiO2 12/14/16 01:07 79 18 102/59 97 Room Air 12/14/16 01:04 80 12/14/16 00:24 81 20 92/51 95 Room Air 12/13/16 22:39 37.9 98 20 115/70 98 Room Air General Appearance: no apparent distress Eyes: sclerae normal Respiratory/Chest: chest non-tender, lungs clear, normal breath sounds, no respiratory distress Cardiovascular: regular rate, rhythm Abdomen/GI: non tender, soft Genitourinary - Male: + pertinent finding (marked scrotal swelling /hematoma ) Extremities/Musculoskelatal: no pedal edema Neurologic/Psych: alert, oriented x 3 Diagnostics - H&P Diagnostics Laboratory Results Results Past 24 Hours Test 12/13/16 23:23 12/13/16 23:25 12/13/16 23:31 12/14/16 00:20 Range/Units White Blood Count 14.33 4.8-10.8 K/uL Red Blood Count 3.31 4.7-6.1 M/uL Hemoglobin 8.5 14.0-18.0 g/dL Hematocrit 27.1 42-52 % Mean Corpuscular Volume 81.9 80-100 fL Mean Corpuscular Hemoglobin 25.7 25-34 pg Mean Corpuscular Hemoglobin Concent 31.4 32-36 g/dl Platelet Count 268 130-400 K/uL Mean Platelet Volume 9.0 7.4-10.4 fL Neutrophils (%) (Auto) 85.2 % Lymphocytes (%) (Auto) 6.5 % Monocytes (%) (Auto) 7.9 % Eosinophils (%) (Auto) 0.0 % Basophils (%) (Auto) 0.1 % Neutrophils # (Auto) 12.21 1.4-6.5 K/uL Lymphocytes # (Auto) 0.93 1.2-3.4 K/uL Monocytes # (Auto) 1.13 0.11-0.59 K/uL Eosinophils # (Auto) 0.00 0-0.5 K/uL Basophils # (Auto) 0.02 0-0.2 K/uL RDW Standard Deviation 39.6 36.4-46.3 fL RDW Coefficient of Variation 13.0 11.5-14.5 % Immature Granulocyte % (Auto) 0.3 % Immature Granulocyte # (Auto) 0.04 0.00-0.02 K/uL Red Blood Cell Morphology Unremarkable Prothrombin Time 13.9 9.0-12.0 SECONDS Prothromb Time International Ratio 1.3 0.9-1.1 Activated Partial Thromboplast Time 36.8 21.0-31.0 SECONDS Partial Thromboplastin Ratio 1.4 Sodium Level 136 136-145 mmol/L Potassium Level 4.0 3.5-5.1 mmol/L Chloride Level 101 98-107 mmol/L Carbon Dioxide Level 25 21-32 mmol/L Anion Gap 10.0 18.0 16-25 mmol/L Blood Urea Nitrogen 13 7-18 mg/dl Creatinine 0.68 0.60-1.40 mg/dl Est Creatinine Clear Calc Drug Dose 141.1 ml/min Estimated GFR () 123.7 Estimated GFR (Non- 106.8 BUN/Creatinine Ratio 19.5 10-20 Random Glucose 92 70-99 mg/dl Calcium Level 7.6 8.5-10.1 mg/dl Total Bilirubin 1.6 0.2-1 mg/dl Aspartate Amino Transf (AST/SGOT) 26 15-37 U/L Alanine Aminotransferase (ALT/SGPT) 29 12-78 U/L Alkaline Phosphatase 102 45-117 U/L Total Protein 6.9 6.4-8.2 gm/dl Albumin 2.6 3.4-5.0 gm/dl Globulin 4.3 2.5-4.0 gm/dl Albumin/Globulin Ratio 0.6 0.9-2 Procalcitonin 0.20 0-0.5 ng/ml Bedside Lactic Acid Venous 0.91 0.90-1.70 mmol/L Bedside Hemoglobin 13.3 14.0-18.0 g/dl Bedside Hematocrit 39 42-52 % Bedside Sodium 133 135-144 mEq/L Bedside Potassium 4.1 3.3-5.0 mEq/L Bedside Chloride 98 101-112 mEq/L Bedside Total CO2 23 24-31 mEq/l Bedside Blood Urea Nitrogen 14 7-18 mg/dl Bedside Creatinine 0.7 0.6-1.3 mg/dl Bedside Glucose (other) 99 70-99 mg/dl Bedside Ionized Calcium (Karen) 1.02 1.12-1.32 mmol/l Urine Color DK YELLOW Urine Appearance CLEAR CLEAR Urine pH 7.0 4.5-7.5 Urine Specific Redfox > 1.045 1.000-1.030 Urine Protein 1+ NEG Urine Glucose (UA) NEG NEG Urine Ketones NEG NEG Urine Occult Blood NEG NEG Urine Nitrite NEG NEG Urine Bilirubin NEG NEG Urine Urobilinogen NEG NEG Urine Leukocyte Esterase NEG NEG Urine WBC (Auto) 1-5 0-5 /hpf Urine RBC (Auto) 5-10 0-4 /hpf Urine Hyaline Casts (Auto) 1-5 0-5 /lpf Urine Epithelial Cells (Auto) >30 0-5 /lpf Urine Bacteria (Auto) NEG NEG Microbiology Results 12/13/16 Blood Culture, Received Pending 12/13/16 Blood Culture, Received Pending Diagnostic Radiology CT ABDOMEN /PELVIS : STATRAD : large heterogenous fluid and gas containing pocket in the left inguinal region extending to the left hemiscrotum , Measures approx 11.5 cm X 16.3 cm X 8.9 cm . It is non specific , appears to be larger than expected for post operative state , presence of Gas could be post surgical , but may be related to infection . The intermediate attenuation material likely represents blood products . The large structures appear to contain a few septations , A developing abscess is not ruled out , Surgical consultation recommended . Impression - H&P Impression Assessment and Plan SCROTAL ABSCESS: -s/p recent Left hydrocele surgery approx 10 days back ( surgery on 12/03/16 ) presents with fever , worsening of pain , swelling , drainage at scrotal area -CT abdomen pelvis suggestive of scrotal abscess /hematoma -pt is taken to OR for emergent I&D by Urology -pt is admitted to Medical floor -IV Abx with vancomycin /Azactam ( pt is allergic to PCN ) -blood culture ordered -ID eval requested RECENT LEFT HYDROCELECTOMY : possible post op complication as above Urology consulted FULL CODE : DVT PROPHYLAXIS : ambulate SCD and teds pharmacological anticoagulation avoided for I&D of scrotal hematoma DISPOSITION ; expected to be discharged home when medically stable Level of Care Med/Surg VTE Prophylaxis VTE Risk Assessment Done? Y/N: Yes Risk Level: Moderate Given or contraindicated: T.E.DArlene Stockings, SCD's Additional Copies To Reyes Lewis M.D. Physical Exam (per Admitting): General Appearance: no apparent distress Eyes: sclerae normal Respiratory/Chest: chest non-tender, lungs clear, normal breath sounds, no respiratory distress Cardiovascular: regular rate, rhythm Abdomen/GI: non tender, soft Genitourinary - Male: + pertinent finding (marked scrotal swelling / hematoma ) Extremities/Musculoskelatal: no pedal edema Neurologic/Psych: alert, oriented x 3 Hospital Course SCROTAL ABSCESS Left hydrocele surgery approx 10 days back ( surgery on 12/03/16 ) Presented with fever , worsening of pain , swelling , drainage at scrotal area CT abdomen pelvis suggestive of scrotal abscess /hematoma On IV Abx with vancomycin /Azactam ( pt is allergic to PCN ) S/P I&D by the Urologist ID on board and added po Flagyl Wound care consult and recommendation -pending Wound C/S:: OR AER/PILAR CULT Preliminary 06/22-1517 Organism 1 PROPIONIBACTERIUM GRANULOSUM QUANITY FEW SENS NO SENSITIVITY TO FOLLOW +MIXWOUND PLUS LOW COUNTS OF PROBABLE SKIN DANIEL Organism 2 ALPHA STREP. NOT ENTEROCOCCUS QUANITY RARE SENS NO SENSITIVITY TO FOLLOW Social Svc for discharge planning Antibiotic as per ID -recommended Oral Clindamycin Wound care provider consult -await input RECENT LEFT HYDROCELECTOMY : possible post op complication as above Urology consulted-appreciate input Blood loss Anemia Acute on chronic? Hemoccult came back positive H/O of gastric bypass Iron studies-Iron is low Vitamin b12 and folic acid levels-normal Received 2 units on 6/11/17 Started on ppi bid Consult GI -appreciate input S/P EGD-large anastomotic Ulcer-non bleeding Recommendation is applied DVT PROPHYLAXIS scds DISPOSITION Home this afternoon after being evaluated by the Wound care provider Total time spent on discharge = 35 minutes This includes examination of the patient, discharge planning, medication reconciliation, and communication with other providers. Discharge Instructions Date of Service Dec 18, 2016. Admission Reason for Admission: Scrotal Infection Discharge Discharge Diagnosis / Problem: Left Scrotal Abscess S/P I&D Discharge Goals Goal(s): Prevent Disease Progression Activity Recommendations Activity Limitations: resume your previous activity . Instructions / Follow-Up Instructions / Follow-Up Please make an appointment with your PCP in 1 week.Keep follow up appointment with Wound clinic and Dr. Lewis next week on 12-23.Dressing change as per Wound care Current Hospital Diet Patient's current hospital diet: Regular Diet Discharge Diet Recommended Diet: Regular Diet Procedures Procedures Performed: EGD Pending Studies Studies pending at discharge: no Medical Emergencies . Who to Call and When: Medical Emergencies: If at any time you feel your situation is an emergency, please call 911 immediately. . Non-Emergent Contact Non-Emergency issues call your: Primary Care Provider . Past History Medical & Surgical History: (1) Anastomotic ulcer (2) Scrotal infection (3) HTN (hypertension) . "Provider Documentation" section prepared by Rose Jose. . VTE Core Measure Inpt VTE Proph given/why not?: Adrian Stockings, SCD's <Electronically signed by Rose Jose M.D.> Signed: 12/18/16 9618 Additional Copies To Michael Maza MD
[2017-01-09] MEDS ORDERED: CLC/300 PO (13:44)
== END 2016-12-18 14:20 | disposition home health service (06) | DRG 902 ==
LOC: C.EDB 22:37 → C.MSN 12-14 00:48 → CANRESERV 12-14 00:57 → ENRESERV 12-14 00:57 → EDBEDREQSVC 12-14 02:49 → ENRESERV 12-14 02:50
PROVIDERS: ADMIT Hospitalist; ATTEND Internal Medicine
PROC: 0JBB0ZZ Excision of Perineum Subcutaneous Tissue and Fascia, Open Approach (ICD-10-PCS; principal; 2016-12-14 02:15)
PROC: 0DJ08ZZ Inspection of Upper Intestinal Tract, Via Natural or Artificial Opening Endoscopic (ICD-10-PCS; 2016-12-17)
DX: N99.840 Postprocedural hematoma of a genitourinary system organ or structure following a genitourinary system procedure (principal); D62 Acute posthemorrhagic anemia; N49.2 Inflammatory disorders of scrotum; D50.9 Iron deficiency anemia, unspecified; K57.30 Diverticulosis of large intestine without perforation or abscess without bleeding; R19.5 Other fecal abnormalities; K28.9 Gastrojejunal ulcer, unspecified as acute or chronic, without hemorrhage or perforation; G47.33 Obstructive sleep apnea (adult) (pediatric); K21.9 Gastro-esophageal reflux disease without esophagitis; I10 Essential (primary) hypertension; Z88.0 Allergy status to penicillin; Z79.899 Other long term (current) drug therapy; Z98.84 Bariatric surgery status; Z90.49 Acquired absence of other specified parts of digestive tract

== ENCOUNTER → 2017-01-10 | Outpatient (CLI) | payer BC ==
[~2017-01-10] MED LIST changes: +CLC/300 PO; +CRFUDL PO; +HYDR-3983 PO; -HYDR-5688 PO; +LCTX PO; +PRT40 PO; +ZOLP10TA PO
[2017-01-10 14:15] LABS: BASO % 0.6 %; BASO ABS # 0.03 K/uL (0-0.2); COMPLETE YES; EOS % 2.3 %; HEMATOCRIT 36.7 % (42-52); LYMPH % 38.4 %; LYMPH ABS # 2.02 K/uL (1.2-3.4); MEAN CELL VOLUME 82.7 fL (80-100); MEAN CORPUSCULAR HEMOGLOBIN 26.1 pg (25-34); MEAN CORPUSCULAR HGB CONC 31.6 g/dl (32-36); MEAN PLATELET VOLUME 10.3 fL (7.4-10.4); MONO % 9.5 %; NEUT % 49.2 %; PLATELET COUNT 217 K/uL (130-400); RED BLOOD COUNT 4.44 M/uL (4.7-6.1); WHITE BLOOD COUNT 5.26 K/uL (4.8-10.8)
[2017-01-10 14:33] LABS: ALT/SGPT 35 U/L (12-78); AST/SGOT 25 U/L (15-37); BLOOD UREA NITROGEN 12 mg/dl (7-18); BUN/CREATININE RATIO 19.7 (10-20); CALCIUM 8.9 mg/dl (8.5-10.1); CARBON DIOXIDE 30 mmol/L (21-32); CHLORIDE 106 mmol/L (98-107); CREATININE 0.63 mg/dl (0.60-1.40); GLUCOSE 73 mg/dl (70-99); POTASSIUM 4.8 mmol/L (3.5-5.1); SODIUM 140 mmol/L (136-145)
[2017-01-10 14:44] LABS: ALB/GLOB RATIO 0.8 (0.9-2); ALKALINE PHOSPHATASE 90 U/L (45-117)
== END | disposition home or self-care (01) ==
LOC: C.LABSPEC 13:33
PROVIDERS: ATTEND Family Medicine
DX: R42 Dizziness and giddiness (principal)